=== PATIENT | male | born 1960 | race Caucasian/White ===

== ENCOUNTER 2019-04-04 09:55 | Inpatient (IN) | payer BC ==
[~2019-04-04] VITALS: Ht 167.6 cm; Wt 63.3 kg
[2019-04-04] MEDS ORDERED: CALCIUM CARBONATE 500 MG (TUMS) TAB.CHEW PO PRN (12:45)
[2019-04-04] MEDS ORDERED: FLEET ENEMA ADULT 1 EA BTL PR PRN (12:45)
[2019-04-04] MEDS ORDERED: diphenhydrAMINE 25 MG TAB (BENADRYL) PO PRN (12:45)
[2019-04-04] MEDS ORDERED: guaiFENesin/CODEINE (ROBITUSSIN AC) 10ML UDC PO PRN (12:45)
[2019-04-04] MEDS ORDERED: LOPERAMIDE 2 MG (IMODIUM) TABLET PO PRN (12:45)
[2019-04-04] MEDS ORDERED: ALPRAZolam 0.25 MG (XANAX) TAB PO PRN (12:45)
[2019-04-04] MEDS ORDERED: DOCUSATE SODIUM 100 MG (COLACE) CAP PO PRN (12:45)
[2019-04-04] MEDS ORDERED: LACTULOSE SYRUP 10GM/15ML (ENULOSE) 30ML UDC PO PRN (12:45)
[2019-04-04] MEDS ORDERED: ONDANSETRON 4 MG (ZOFRAN) ORAL DISSOLVE TAB PO PRN (12:45)
[2019-04-04] MEDS ORDERED: MELATONIN 3 MG TABLET PO PRN (12:45)
[2019-04-04] MEDS ORDERED: BISACODYL 10 MG SUPP (DULCOLAX) PR PRN (12:45)
--- NOTE | 2019-04-04 14:25 | NUR ---
Patient received Privacy Act Statement and Data Collection Information Summary at admission.
--- NOTE | 2019-04-04 14:25 | NUR ---
Ric Alcala admitted to room 223-1, with an admitting diagnosis of Hypoxia, on 04/04/19 from [facility] via private vehicle, accompanied by , Sincere and son. RIC ALCALA introduced to surroundings, call light, bed controls, phone, TV, temperature control, lights, meal times, smoking policy, visitor policy, side rail policy, bathrooms and showers. Patient Rights given to patient in the handbook.RIC ALCALA verbalizes understanding that [facility] is not responsible for the loss or damage to any personal effects or valuables that are kept in the patients possession during their hospitalization. The following Patient Care Plans were discussed with the patient and family: Discharge Planning,Fall Risk,and Hypoxia. RIC ALCALA verbalizes understanding of Interdisciplinary Patient Education. Patient and/or family were informed about the Rapid Response Team and its purpose.
[2019-04-04] MEDS ORDERED: FLUT9.9S NS (15:18)
[2019-04-04] MEDS ORDERED: CARV3.12 PO (15:18)
[2019-04-04] MEDS ORDERED: ASPI-999 PO (15:18)
[2019-04-04] MEDS ORDERED: POLY17PO6 PO (15:20)
[2019-04-04] MEDS ORDERED: LISI-556 PO (15:20)
[2019-04-04] MEDS ORDERED: ATOR40TA70 PO (15:20)
[2019-04-04] MEDS ORDERED: CLOP75TA69 PO (15:20)
--- NOTE | 2019-04-04 15:22 | NUR ---
ENTERED THE MED REC USING THE DISCHARGE SUMMARY FROM [facility]. AFTER I INTERVIEW THE PT I WILL UPDATE THE MED REC AND NOTES NEEDED Addendum: 04/05/19 at 1354 by ALEX PATTON [facility] SPOKE WITH THE PT (AND HIS , SHE HAD A MED LIST) WELL GOING THRU THE EXT MED HISTORY TO COMPLETE THE MED REC. CHANGE: PT HAD BEEN TAKING ATORVASTATIN 10 MG BUT [facility] DISCHARGE ORDER IS ATORVASTATIN 40MG I TOOK OFF THE FOLLOWING MEDICATIONS SINCE HE HAS NEVER BEEN ON THEM BEFORE: ASPIRIN 81MG CHEW: 1 QAM CARVEDILOL 3.125M BID W/ MEALS FLONASE MIRALAX: 17 GM QAM CLOPIDOGREL 75: 1 QAM LISINOPRIL 5M QAM THE FOLLOWING MEDS ARE WHAT HE WAS TAKING AND HAVE BEEN UP BACK ON THE MED REC: DICLOFENAC 75MG 1 BID METOPROLOL SUCC 25MG 1 DAILY LOSARTAN 100MG 1 DAILY AMLODIPINE 10MG 1 DAILY OTC MEDS THAT HAVE BEEN ADDED: TYLENOL MTV THE MED REC HAS BEEN RESTORED TO WHAT THE PT WAS TAKING BEFORE HE WAS ADMITTED TO [facility]
--- NOTE | 2019-04-04 15:34 | Physical Therapy Evaluation ---
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 Patient intubated and given CPR on site. Patient found to have a STEMI and hypoxia. Current History transfer to ARU from [facility] due to impaired mobility, weakness, hypoxic brain injury Reviewed History: Yes Social History Home: Single Level Current Living Status: Spouse Entry Into Home: Stairs With Railing PT Steps Into Home: 4 Prior Prior Level of Function SCALE: Activities may be completed with or without assistive devices. 0-Rssgfqgele-dzyksud completes the activity by him/herself with no assistance from a helper. 5-Set-up or Clean-up Assistance-helper sets up or cleans up; patient completes activity. [place] assists only prior to or following the activity. 4-Supervision or Touching Assistance-helper provides verbal cues and/or touching/steadying and/or contact guard assistance as patient completes activity. Assistance may be provided throughout the activity or intermittently. 3-Partial/Moderate Assistance-helper does LESS THAN HALF the effort. [place] lifts, holds or supports trunk or limbs, but provides less than half the effort. 2-Substantial/Maximal Assistance-helper does MORE THAN HALF the effort. [place] lifts or holds trunk or limbs and provides more than half the effort. 9-Hmxiogrlz-dgktcc does ALL the effort. Patient does none of the effort to complete the activity. Or, the assistance of 2 or more helpers is required for the patient to complete the activity. If activity was not attempted, code reason: 7-Patient Refused. 9-Not Applicable-not attempted and the patient did not perform the activity before the current illness, exacerbation or injury. 10-Not Attempted due to Environmental Limitations-(lack of equipment, weather restraints, etc.). 88-Not Attempted due to Medical Conditions or Safety Concerns. Bed Mobility: 6 Transfers (B,C,W/C): 6 Gait: 6 Stairs: 6 Indoor Mobility (Ambulation): Independent Stairs: Independent Prior Devices Use: None PT Evaluation-Current Subjective Patient reports fatigue. Family present. Pain Numeric Pain Scale: 0-No Pain Location: No Pain Reported Objective Patient Orientation: Person, Place, Time, Situation ROM/Strength ROM Lower Extremities bilateral LE WFL Strength Lower Extremities right dorsiflexion/plantarflexion 3/5; knee flexion/extension 3+/5; hip flexion 2/5 left dorsiflexion/plantarflexion3/5; knee flexion/extension 3+/5; hip flexion 2/5 Integumentary/Posture Integumentary refer to nursing notes Bowel Incontinence: No Bladder Incontinence: Castro Cath Posture WFL Neuromuscular (Tone, Coordination, Reflexes) diminished coordination bilateral LE with noted decreased proprioception Sensory Vision: Wears Glasses Hearing: Functional Sensation Right Lower Extremit: Intact Sensation Left Lower Extremity: Intact Transfers Roll Left to Right (QC): 5 Sit to Lying (QC): 3 Lying to Sitting/Side of Bed(Q: 4 Sit to Stand (QC): 2 Chair/Hze-ti-Jgloc Xfer(QC): 2 Toilet Transfer: 2 Car Transfer (QC): 2 patient is very impulsive with all mobility and is unaware of safety concerns. Verbal cue's given for sit to stand and stand to sit to lying as patient impulsively initiated this activity. Gait Does the Patient Walk?: Yes Mode of Locomotion: Both Anticipated Mode of Locomotion: Walk Walk 10 feet (QC): 2 ( x 2 assist) Walk 50 ft with 2 Turns(QC): 2 (x 2 assist) Walk 150 ft (QC): 88 Walking 10ft/uneven surface-QC: 2 (x 2 assist) Distance: 50' x 2/20' x 1 Gait Assistive Device: FWW Comments/Gait Description noted right LE lag and scissor gait sequence due to weakness/fatigue (patient unable to safely ambulate longer distances due to weakness, fatigue, diminished safety awareness) Wheelchair Training Does the Pt Use a Wheelchair?: Yes Wheel 50 ft with 2 turns (QC): 88 Wheel 150 ft (QC): 88 Type of Wheelchair: Manual Stairs #of Steps: 1 1 Step (curb) (QC): 2 (assist x 2 for safety) 4 Steps (QC): 88 12 Steps (QC): 88 Walking Assistive Device: Walker Balance Sitting Static: Fair Sitting Dynamic: Fair Standing Static: Fair Standing Dynamic: Poor Picking up an Object (QC): 3 Treatment Patient and family express desire to return to home. Patient is highly motivated. He denies pain. PT/OT cotreat due to patient profound weakness and fatigue requiring skilled therapist to address patient needs safely. PT address bed mobility, transfers, balance and gait training/stair training while OT address hand placement on FWW with gait training, stair training and ambulating on uneven surface. OT address ADL's and dressing lower body in seated position. Patient requires max assist x 2 for gait training/stair training due to diminished dynamic balance, proprioception and weakness, as well as, severely diminished safety awareness. Patient expresses fatigue and requested returning to bed. Patient positioned in bed with all four rails up and bed alarm activated. Assessment/Needs 59 y.o. male, will benefit from skilled PT to address functional strength and mobility to improve current LOF to safely return to home with spouse at maximum LOF. Patient is limited with impulsive behavior, diminished safety awareness, bilateral LE weakness, impaired dynamic balance and ambulation. 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 Time Frame: May 07, 2019 Roll Left & Right (QC): 6 Sit to Lying (QC): 6 Lying-Sitting on Side/Bed(QC): 6 Sit to Stand (QC): 5 Chair/Blv-yn-Ufhtq Xfer(QC): 5 Toilet Transfer (QC): 5 Car Transfer (QC): 5 Does the Patient Walk: Yes Walk 10 feet (QC): 6 Walk 50ft with 2 Turns (QC): 6 Walk 150 ft (QC): 6 Walking 10ft on Uneven Surface: 6 1 Step (curb) (QC): 6 4 Steps (QC): 6 12 Steps (QC): 6 Picking up an Object (QC): 6 PT Plan Problem List Problem List: Activity Tolerance, Functional Strength, Safety, Balance, Gait, Transfer, Bed Mobility Treatment/Plan Treatment Plan: Continue Plan of Care Treatment Plan: Bed Mobility, Concurrent Therapy, Education, Functional Activity [place], Functional Strength, Group Therapy, Gait, Safety, Therapeutic Exercise, Transfers Treatment Duration: May 07, 2019 Frequency: At least 5 of 7 days/Wk (IRF) Estimated Hrs Per Day: 1.5 hours per day Patient and/or Family Agrees t: Yes Safety Risks/Education Patient Education: Gait Training, Steps, Safety Issues Teaching Recipient: Patient, Family Teaching Methods: Demonstration, Discussion Response to Teaching: Verbalize Understanding, Return Demonstration, Reinforcement Needed Time/GCodes Time In: 1445 Time Out: 1530 Total Billed Treatment Time: 45 Total Billed Treatment 1 visit OT eval: [id number] PT eval: 3258-1141 PT/OT cotreat: [id number]: co treat rendered due to extensive current medical history, weakness/fatigue and need for 2 skilled therapist that of which an aide could not provide 1 visit EVModC 10 min FA x 2 35 min LEAH GAUTAM PT Apr 04, 2019 15:34
--- NOTE | 2019-04-04 15:36 | Occupational Therapy Eval ---
OT Evaluation-General/PLF Medical Diagnosis Admission Date Apr 04, 2019 at 14:35 Medical Diagnosis: AK s/p hypoxic brain injury Onset Date: Mar 18, 2019 Therapy Diagnosis Therapy Diagnosis: Decreased ADL skills Weight Bear Status Weight Bearing Restriction: Weight Bearing/Tolerated Referral Physician: Dr. Sepulveda Referral Reason: Activity Tolerance, Self Care, Evaluation/Treatment, Strengthening/ROM Medical History Additional Medical History Anemia, cardiomyopathy, PNA, leukocytosis Current History Pt. at work, operating [employer]. Pt. had [place]. Sustained hypoxic injury. On ventilator support. Reviewed History: Yes Social History Home: Single Level Current Living Status: Spouse Entry Into Home: Stairs With Railing Steps Into Home: 4 ADL-Prior Level of Function SCALE: Activities may be completed with or without assistive devices. 8-Daqtaoligp-hmihogu completes the activity by him/herself with no assistance from a helper. 5-Set-up or Clean-up Assistance-helper sets up or cleans up; patient completes activity. [place] assists only prior to or following the activity. 4-Supervision or Touching Assistance-helper provides verbal cues and/or touching/steadying and/or contact guard assistance as patient completes activity. Assistance may be provided throughout the activity or intermittently. 3-Partial/Moderate Assistance-helper does LESS THAN HALF the effort. [place] lifts, holds or supports trunk or limbs, but provides less than half the effort. 2-Substantial/Maximal Assistance-helper does MORE THAN HALF the effort. [place] lifts or holds trunk or limbs and provides more than half the effort. 6-Xhotobygy-nncxbj does ALL the effort. Patient does none of the effort to complete the activity. Or, the assistance of 2 or more helpers is required for the patient to complete the activity. If activity was not attempted, code reason: 7-Patient Refused. 9-Not Applicable-not attempted and the patient did not perform the activity before the current illness, exacerbation or injury. 10-Not Attempted due to Environmental Limitations-(lack of equipment, weather restraints, etc.). 88-Not Attempted due to Medical Conditions or Safety Concerns. ADL PLOF Comments Pt. was independent with daily skills. Self Care: Independent Functional Cognition: Independent DME/Equipment Comments Pt. does not use or have any AE. 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 However, pt. reports that he is very tired. Family reports that pt. became nauseated on car ride. Mental Status/Objective Patient Orientation: Person, Place Current Glasses/Contacts: Yes Hand Dominance: Right Upper Extremity ROM WFL Upper Extremity Coordination Impaired Upper Extremity Strength Right- 3+/5 Left- 3/5 Pt. demonstrates difficulty holding items and grasping items. Difficulty with coordination. ADL-Treatment On/Off Footwear (QC): 4 (SBA and increased time to doff/don slipper socks. Pt. had difficulty with this, but was able to complete.) Pt. seen this date for therapy to evaluate current physical status. Pt. requir ed max assist for car transfer to wheelchair. Pt. in clothing and does not have other street clothing here at this time. Family will bring new clothes in. Pt. verbalizes that he is very tired. Continues to request to lay down. States that he has been eating with utensils with no difficulty. Reports that he has not had a BM for a week. Pt. and family educated on therapy goals, and rehab stay. Pt. participated in co-treatment with PT/OT due to need of skilled assistance x 2. Pt. ambulated with walker with assist of two for balance, upright posture, and hand support on walker. Noted difficulty with grasp and proprioception at times. OT focused on hand placement while PT assessed scissoring with feet and gait. Mod x 2 to ambulate with walker and max cues. Please see PT noted for distance ambulated. Pt. requires several rest breaks. After evaluation, pt. ambulated to room. Transferred to bed with mod assist for LE. Pt. educated on safety and not getting out of bed on his own. Pt. and family verbalizes understanding that pt. is to use call light for assistance. Pt. issued therapy hand sponge for strengthening and built up foam utensil handles if needed for eating. Nursing in room when therapy left. All needs met. Education OT Patient Education: Correct positioning, Modified ADL techniques, Progress toward Goal/Update tx plan, Purpose of tx/functional activities, Reviewed precautions, Rehab process, Transfer techniques Teaching Recipient: Patient, Family Teaching Methods: Demonstration Response to Teaching: Verbalize Understanding, Return Demonstration OT Short Term Goals Short Term Goals Time Frame: Apr 11, 2019 Eatin Oral hygiene: 4 Toileting hygiene: 3 Shower/bathe self: 3 Upper body dressin Lower body dressin Putting on/taking off footwear: 4 OT Shelter Goals Shelter Goals Time Frame: Apr 25, 2019 Eating (QC): 6 Oral Hygiene (QC): 5 Toileting Hygiene (QC): 6 Shower/Bathe Self (QC): 4 Upper Body Dressing (QC): 4 Lower Body Dressing (QC): 4 On/Off Footwear (QC): 4 Additional Goals: 1-Demonstrate ADL Tasks, 2-Verbalize Understanding, 3- ImproveStrength/[place] 1=Demonstrate adherence to instructed precautions during ADL tasks. 2=Patient will verbalize/demonstrate understanding of assistive devices/modifications for ADL. 3=Patient will improve strength/tolerance for activity to enable patient to perform ADL's. OT Education/Plan Problem List/Assessment Assessment: Decreased Activ Tolerance, Decreased Safety Aware, Decreased UE Strength, Dependent Transfers, Impaired Cognition, Impaired Coordination, Impaired Funct Balance, Impaired I ADL's, Impaired Self-Care Skills Discharge Recommendations Plan/Recommendations: Continue POC Therapy Discharge Recommendati: Home & Family, Post Acute OT Comment Adaptive equipment needs to be determined. Treatment Plan/Plan of Care Treatment,Training & Education: Yes Patient would benefit from OT for education, treatment and training to promote independence in ADL's, mobility, safety and/or upper extremity function for ADL' s. Plan of Care: ADL Retraining, Caregiver Training, Functional Mobility, Group Exercise/Act as Ind, UE Funct Exercise/Act Treatment Duration: Apr 25, 2019 Frequency: At least 5 of 7 days/Wk (IRF) Estimated Hrs Per Day: 1.5 hours per day Agreement: Yes Rehab Potential: Good Time/GCodes Start Time: 14:35 Stop Time: 15:30 Total Time Billed (hr/min): 45 Billed Treatment Time 0207-3377 OT eval, 1, EVH x 10minutes 2081-4015 PT eval, no charge [id number] FA x 35minutes VENANCIO KUMAR OT Apr 04, 2019 15:36
[2019-04-04 16:00] VITALS: BP 102/67
--- NOTE | 2019-04-04 18:29 | PM&R Post Admission Assessment ---
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 Patient currently has severe constipation x 1 week and requiring payton catheter maintenance due to failure of voiding trial yesterday. 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 His is very supportive and is at the bedside. Past Asjtslr-Eqqway-Ymgnti Hx Past Med/Social Hx: Reviewed Nursing Past Med/Soc Hx, Reviewed and Corrections made Patient Social History Marrital Status: Employed/Student: unemployed Alcohol Use: Denies Use Recreational Drug Use: No Smoking Status: Former Smoker Type Used: Smokeless Tobacco Physical Abuse Screen: No Sexual Abuse: No Recent Foreign Travel: No Contact w/other who traveled: No Recent Hopitalizations: Yes Recent Infectious Disease Expo: No Immunizations Up To Date Pediatric: No Seasonal Allergies Seasonal Allergies: Yes (Takes FLONASE and Singulair) Past Medical History Surgeries: Cardiac Currently Using CPAP: No Currently Using BIPAP: No Cardiac: Coronary Artery Disease, High Cholesterol, Hypertension anoxic brain injury Sexually Transmitted Disease: No HIV/AIDS: No Genitourinary: Benign Prostatic Hyperpl Gastrointestinal: Gastroesophageal Reflux Hearing Impairment: Hard of Hearing History of Blood Disorders: No Adverse Reaction to Blood Vyas: No Family History Arthritis 19 FATHER G8 SISTER Cardiovascular disease 19 FATHER Completed stroke 19 FATHER Deafness or hearing loss Diabetes mellitus G8 SISTER Hypercholesterolemia 19 FATHER Hypertension 19 FATHER Myocardial infarction 19 FATHER Visual disorder 19 FATHER 19 MOTHER G8 SISTER Prior Level of Function Bed Mobility: 6 Transfers: 6 Gait: 6 Stairs: 6 Indoor Mobility (Ambulation): Independent Stairs: Independent Prior Devices Use: None Self Care: Independent Functional Cognition: Independent 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 Drive Self: Yes Current Level of Fuctioning Roll Left to Right: 5 Sit to Lyin Lying to Sitting/Side of Bed: 4 Sit to Stand: 2 Chair/Imj-yj-Rwszs Xfer: 2 Car Transfer: 2 Does the Patient Walk: Yes Mode of Locomotion: Both Anticipated Mode of Locomotion: Walk Walk 10 feet: 2 ( x 2 assist) Walk 50 ft with 2 Turns: 2 (x 2 assist) Walk 150 ft: 88 Walking 10ft on uneven surface: 2 (x 2 assist) Gait Assistive Device: FWW Does the Pt Use a Wheelchair: Yes Wheel 50 ft with 2 turns: 88 Wheel 150 ft: 88 Type of Wheelchair: Manual #of Steps: 1 1 Step (curb): 2 (assist x 2 for safety) 4 Steps: 88 Walking Assistive Device: Walker 12 Steps: 88 Picking up an Object: 3 On/Off Footwear: 4 (SBA and increased time to doff/don slipper socks. Pt. had difficulty with this, but was able to complete.) PM&R Allergy/Meds/Data Review Allergies Coded Allergies: No Allergy Information Available (Unverified , 04/04/19) Home Medications Scheduled Aspirin (Aspirin), 81 MG PO DAILY, (Reported) Atorvastatin Calcium (Atorvastatin Calcium), 40 MG PO HS, (Reported) Carvedilol (Coreg), 3.125 MG PO BID WITH MEALS, (Reported) Clopidogrel Bisulfate (Plavix), 75 MG PO DAILY, (Reported) Fluticasone Propionate (Flonase Allergy Relief), 1 SPRAY NS DAILY, (Reported) Lisinopril (Lisinopril), 5 MG PO DAILY, (Reported) Polyethylene Glycol 3350 (Miralax), 17 GM PO DAILY, (Reported) Current Medications Current Medications Reviewed Review of Systems Constitutional: see HPI, weakness EENTM: no symptoms reported Respiratory: no symptoms reported Cardiovascular: no symptoms reported Gastrointestinal: constipation Genitourinary: other (retention) Musculoskeletal: back pain Skin: no symptoms reported Psychiatric/Neurological: Anxiety, Depressed All Other Systems Reviewed Negative Unless Noted: Yes Physical Exam Physical Exam Vital Signs Vital Signs - First Documented 04/04/19 16:00 Temp 36.4 Pulse 69 Resp 14 B/P (MAP) 102/67 (79) Pulse Ox 95 O2 Delivery Room Air Capillary Refill : Height, Weight, BMI Height: '" Weight: lbs. oz. kg; BMI Method: General Appearance: No Apparent Distress, WD/WN, Chronically ill, Thin Eyes: Bilateral Eye Normal Inspection, Bilateral Eye PERRL HEENT: PERRL/EOMI, Normal ENT Inspection, Pharynx Normal Neck: Full Range of Motion, Normal Inspection, Non Tender, Supple, Carotid Bruit Respiratory: Chest Non Tender, Lungs Clear, Normal Breath Sounds, No Accessory Muscle Use, No Respiratory Distress Cardiovascular: Regular Rate, Rhythm, No Edema, No Gallop, No JVD, No Murmur, Normal Peripheral Pulses Gastrointestinal: Normal Bowel Sounds, No Organomegaly, No Pulsatile Mass, Non Tender, Soft Back: Normal Inspection, No CVA Tenderness, No Vertebral Tenderness Extremity: Normal Capillary Refill, Normal Inspection, Normal Range of Motion, Non Tender, No Calf Tenderness, No Pedal Edema Neurologic/Psychiatric: Alert, Oriented x3, No Motor/Sensory Deficits, Normal Mood/Affect, Disoriented (subtle slow responses and recall), Motor Weakness (generalized all extremities, impulsive) Skin: Normal Color, Warm/Dry Lymphatic: No Adenopathy PM&R Medical Assessment & Plan REHAB/MEDICAL ASSESSMENT AND PLAN: REHAB IMPAIRMENT GROUP: Anoxic brain injury ETIOLOGIC DIAGNOSIS: Anoxic brain injury The comorbidities that impact the patients function and/or functional outcome by: Cognitive deficit, severe cardiac conditions, frail status REHAB PLAN: The patient is being admitted to our comprehensive inpatient rehabilitation facility and can tolerate the intensity of service consisting of at least: 180 minutes of therapy a day, 5 out of 7 days a week Rehab treatment will consist of: PT OT ST will all aggressively treat patient in order to regain PLOF in order to return home The patient/family has a good understanding of our discharge process and will benefit from an interdisciplinary inpatient rehabilitation program. The patient has potential to make improvement and is in need of at least two of the following multidisciplinary therapies including but not limited to physical, occupational, speech, and prosthetics and orthotics. Additionally the patient will need services from respiratory, nutritional services, wound care, psychology, etc. (Customize this to each patient). Given the patients complex condition and risk of further medical complications, rehabilitation services cannot be safely or effectively provided at a lower level of care such as a nursing home facility. BARRIERS TO DISCHARGE: Frail status with cognitive deficit ESTIMATED LOS: 10 days DISPOSITION: Home RELEVANT CHANGES SINCE PREADMISSION SCREENING: I have compared the patients medical and functional status at the time of the preadmission screening and there are: no changes PROGNOSIS: Good REHABILITATION GOALS: 1. PT OT ST will all aggressively treat patient in order to regain PLOF in order to return home All the above goals were reviewed with the patient and he/she is in agreement. By signing this document, I acknowledge that I have personally performed a full physical examination on this patient within 24 hours of admission to this inpatient rehabilitation facility and have determined the patient to be able to tolerate the above course of treatment at an intensive level for a reasonable period of time. I will be completing a detailed individualized Plan of Care for this patient by day #4 of the patients stay based upon the Preadmission Screen, the Post-Admission Evaluation, and the therapy evaluations. Admission Dx/Comorbidities: (1) Anoxic brain injury ICD Codes: G93.1 - Anoxic brain damage, not elsewhere classified (2) CAD (coronary artery disease) ICD Codes: I25.10 - Atherosclerotic heart disease of [place] coronary artery without angina pectoris (3) Malnutrition ICD Codes: E46 - Unspecified protein-calorie malnutrition (4) Urinary retention ICD Codes: R33.9 - Retention of urine, unspecified (5) Constipation ICD Codes: K59.00 - Constipation, unspecified (6) Payton catheter in place ICD Codes: Z96.0 - Presence of urogenital implants (7) Hypertension ICD Codes: I10 - Essential (primary) hypertension RENEE JARVIS DO Apr 04, 2019 18:29
[2019-04-04 18:58] VITALS: BP 102/67
[2019-04-04] MEDS: LACTULOSE SYRUP 10GM/15ML (ENULOSE) 30ML UDC PO SCH ×2 (19:46→19:52)
[2019-04-04 20:13] VITALS: BP 102/67
[2019-04-04] MEDS ORDERED: FLU QUADRIvalent (5+ YOA) 2019-2020 (AFLURIA) 0.5 ML IM ONE (20:30)
[2019-04-04] MEDS: SENNA W/DOCUSATE (SENOKOT S) TABLET PO SCH (20:31)
[2019-04-04] MEDS: DOCUSATE SODIUM 100 MG (COLACE) CAP PO SCH (20:31)
[2019-04-04] MEDS: polyethylene glycoL POWDER 17 GM (MIRALAX) PACK PO SCH (20:32)
[2019-04-04] MEDS ORDERED: polyethylene glycoL POWDER 17 GM (MIRALAX) PACK PO SCH (21:00)
--- NOTE | 2019-04-04 21:00 | NUR ---
Lovenox held because patient already had a dose today at [facility] before transferring here.
[2019-04-04] MEDS: ENOXAPARIN 40 MG/0.4 ML (LOVENOX) SYR SC SCH (22:21)
[2019-04-05 05:13] VITALS: BP 98/68
[2019-04-05 06:52] LABS: BASOPHILS % (AUTO) 0 % (0-10); EOSINOPHILS # (AUTO) 0.3 10^3/uL (0.0-0.3); EOSINOPHILS % (AUTO) 4 % (0-10); HEMATOCRIT 37 % (40-54); HEMOGLOBIN 12.2 G/DL (13.3-17.7); LYMPHOCYTES # (AUTO) 1.2 X 10^3 (1.0-4.0); LYMPHOCYTES % (AUTO) 15 % (12-44); MEAN CORPUSCULAR HEMOGLOBIN 29 PG (25-34); MEAN CORPUSCULAR HGB CONC 33 G/DL (32-36); MEAN CORPUSCULAR VOLUME 86 FL (80-99); MEAN PLATELET VOLUME 11.1 FL (7.4-10.4); MONOCYTES % (AUTO) 12 % (0-12); NEUTROPHILS # (AUTO) 5.3 X 10^3 (1.8-7.8); NEUTROPHILS % (AUTO) 69 % (42-75); PLATELET COUNT 645 10^3/uL (130-400); RED CELL DISTRIBUTION WIDTH 13.9 % (10.0-14.5); WHITE BLOOD COUNT 7.8 10^3/uL (4.3-11.0)
[2019-04-05] MEDS: CARVEDILOL 3.125 MG (COREG) TABLET PO SCH ×2 (07:00→17:33)
[2019-04-05 07:13] LABS: ALANINE AMINOTRANSFERASE 85 U/L (0-55); ALBUMIN 3.3 GM/DL (3.2-4.5); ALKALINE PHOSPHATASE 160 U/L (40-136); BILIRUBIN,TOTAL 0.6 MG/DL (0.1-1.0); BUN/CREATININE RATIO 32; CALCIUM 9.2 MG/DL (8.5-10.1); CARBON DIOXIDE 20 MMOL/L (21-32); CHLORIDE 106 MMOL/L (98-107); CREATININE SERUM 0.77 MG/DL (0.60-1.30); GFR ESTIMATED > 60; GLUCOSE 94 MG/DL (70-105); POTASSIUM 4.1 MMOL/L (3.6-5.0); SODIUM 134 MMOL/L (135-145); TOTAL PROTEIN 6.4 GM/DL (6.4-8.2)
[2019-04-05] MEDS: CLOPIDOGREL 75 MG (PLAVIX) TABLET PO SCH (08:50)
[2019-04-05] MEDS: DOCUSATE SODIUM 100 MG (COLACE) CAP PO SCH ×2 (08:50→20:30)
[2019-04-05] MEDS: SENNA W/DOCUSATE (SENOKOT S) TABLET PO SCH ×2 (08:50→20:30)
[2019-04-05] MEDS: ASPIRIN 81 MG CHEW (CHILDREN'S ASA) PO SCH (08:51)
[2019-04-05] MEDS: LACTULOSE SYRUP 10GM/15ML (ENULOSE) 30ML UDC PO SCH ×2 (08:51→20:30)
[2019-04-05] MEDS: lisINopril 5 MG (PRINIVIL) TABLET PO SCH (08:53)
[2019-04-05] MEDS: BISACODYL 10 MG SUPP (DULCOLAX) PR SCH ×2 (08:55→17:36)
[2019-04-05] MEDS: FLUTICASONE NASAL SPRAY (FLONASE) 16 GM BTL NS SCH (08:55)
[2019-04-05 08:56] VITALS: BP 100/68
--- NOTE | 2019-04-05 08:58 | Physical Therapy Daily Note ---
PT Daily Note-Current Subjective Patient in bed pre tx, agrees to PT, has no complaints of pain. Patient needs to get pants on, needs max assist. Appearance Patient in bed post tx with nurse call, phone, tray, all needs met. Bed alarm on. Mental Status Patient Orientation: Person, Place, Situation Attachments: [place] Catheter Transfers SCALE: Activities may be completed with or without assistive devices. 3-Vijlahgqux-ythvcuh completes the activity by him/herself with no assistance from a helper. 5-Set-up or Clean-up Assistance-helper sets up or cleans up; patient completes activity. [place] assists only prior to or following the activity. 4-Supervision or Touching Assistance-helper provides verbal cues and/or touching/steadying and/or contact guard assistance as patient completes activity. Assistance may be provided throughout the activity or intermittently. 3-Partial/Moderate Assistance-helper does LESS THAN HALF the effort. [place] lifts, holds or supports trunk or limbs, but provides less than half the effort. 2-Substantial/Maximal Assistance-helper does MORE THAN HALF the effort. [place] lifts or holds trunk or limbs and provides more than half the effort. 8-Ayclmabaw-yogckr does ALL the effort. Patient does none of the effort to complete the activity. Or, the assistance of 2 or more helpers is required for the patient to complete the activity. If activity was not attempted, code reason: 7-Patient Refused. 9-Not Applicable-not attempted and the patient did not perform the activity before the current illness, exacerbation or injury. 10-Not Attempted due to Environmental Limitations-(lack of equipment, weather restraints, etc.). 88-Not Attempted due to Medical Conditions or Safety Concerns. Roll Left & Right (QC): 6 Sit to Lying (QC): 6 Lying to Sitting/Side of Bed(Q: 6 Sit to Stand (QC): 3 Chair/Pio-jl-Fqmmw Xfer(QC): 3 Min assist for sit to stand and transfers due to poor balance Weight Bearing Right Lower Extremity: Right Full Weight Bearing Left Lower Extremity: Left Full Weight Bearing Gait Training Distance: 20'x6 Walk 10 feet (QC): 3 Gait Persons Needed: 1 Gait Assistive Device: FWW Min assist, uncoordinated stepping bilaterally Wheelchair Training Does the Pt Use a Wheelchair?: Yes Wheel 50 ft with 2 turns (QC): 3 Type of Wheelchair: Manual 120' min assist, cues for direction Exercises Standing: Heel/toe raises, Mini squats, Step-ups (x5 BLE) Standing Reps: 10 LAQ alternating for 3 min Treatments dressing, WC mobility, transfers, bed mobility, ambulation, LE strengthening. 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 Goals Mcc Goals PT Mcc Goals Time Frame: May 07, 2019 Roll Left & Right (QC): 6 Sit to Lying (QC): 6 Lying-Sitting on Side/Bed(QC): 6 Sit to Stand (QC): 5 Chair/Ijk-to-Qkldg Xfer(QC): 5 Toilet Transfer (QC): 5 Car Transfer (QC): 5 Does the Patient Walk: Yes Walk 10 feet (QC): 6 Walk 50ft with 2 Turns (QC): 6 Walk 150 ft (QC): 6 Walking 10ft on Uneven Surface: 6 1 Step (curb) (QC): 6 4 Steps (QC): 6 12 Steps (QC): 6 Picking up an Object (QC): 6 PT Plan Problem List Problem List: Activity Tolerance, Functional Strength, Safety, Balance, Gait, T ransfer, Bed Mobility Treatment/Plan Treatment Plan: Continue Plan of Care Treatment Plan: Bed Mobility, Concurrent Therapy, Education, Functional Activity [place], Functional Strength, Group Therapy, Gait, Safety, Therapeutic Exercise, Transfers Treatment Duration: May 07, 2019 Frequency: At least 5 of 7 days/Wk (IRF) Estimated Hrs Per Day: 1.5 hours per day Patient and/or Family Agrees t: Yes Safety Risks/Education Patient Education: Gait Training, Transfer Techniques, Correct Positioning, W/C Management, Safety Issues Teaching Recipient: Patient Teaching Methods: Demonstration, Discussion Response to Teaching: Reinforcement Needed Time/GCodes Time In: 0800 Time Out: 0900 Total Billed Treatment Time: 60 Total Billed Treatment 1 visit GT 30' FA 10' EX 20' STEW CRAIG PT Apr 05, 2019 08:58
[2019-04-05] MEDS ORDERED: NON-FORMULARY MEDICATION 1 EA EA (Fluticasone Propionate (Flonase Allergy Relief) 1 SPRAY) NS SCH (09:00)
--- NOTE | 2019-04-05 09:03 | PM&R Progress Note ---
Subjective HPI/CC On Admission Date Seen by Provider: Apr 05, 2019 Time Seen by Provider: 09:15 Subjective/Events-last exam Pt is doing very well. BM was last week so will initiate a suppository this afternoon after laxatives have been given. BP remains 100/68, Dr. Cruz has been consulted. Cognitive deficit noted Conferred with RN. Reviewed therapy notes. Checked meds and labs. Review of Systems General: Fatigue Pulmonary: Dyspnea Gastrointestinal: Constipation Neurological: Confusion Objective Exam Vital Signs Vital Signs Date Time Temp Pulse Resp B/P (MAP) Pulse Ox O2 Delivery O2 Flow Rate FiO2 04/05/19 18:21 36.2 68 16 108/72 (84) 98 Room Air Capillary Refill : Less Than 3 SecondsLess Than 3 Seconds General Appearance: No Apparent Distress, WD/WN, Chronically ill, Thin HEENT: PERRL/EOMI, Normal ENT Inspection, Pharynx Normal Neck: Full Range of Motion, Normal Inspection, Non Tender, Supple, Carotid Bruit Respiratory: Chest Non Tender, Lungs Clear, Normal Breath Sounds, No Accessory Muscle Use, No Respiratory Distress Cardiovascular: Regular Rate, Rhythm, No Edema, No Gallop, No JVD, No Murmur, Normal Peripheral Pulses Gastrointestinal: Normal Bowel Sounds, No Organomegaly, No Pulsatile Mass, Non Tender, Soft Back: Normal Inspection, No CVA Tenderness, No Vertebral Tenderness Extremity: Normal Capillary Refill, Normal Inspection, Normal Range of Motion, Non Tender, No Calf Tenderness, No Pedal Edema Neurologic/Psychiatric: Alert, Oriented x3, No Motor/Sensory Deficits, Normal Mood/Affect, Disoriented (subtle slow responses and recall), Motor Weakness (generalized all extremities, impulsive) Skin: Normal Color, Warm/Dry Lymphatic: No Adenopathy Results/Procedures Lab Laboratory Tests 04/05/19 05:25 Patient resulted labs reviewed. FIM Transfers Therapy Code Descriptions/Definitions Functional [place] Measure: 0=Not Assessed/NA 4=Minimal Assistance 1=Total Assistance 5=Supervision or Setup 2=Maximal Assistance 6=Modified [place] 3=Moderate Assistance 7=Complete IndependenceSCALE: Activities may be completed with or without assistive devices. 2-Fjrbpvrifk-huyfjyv completes the activity by him/herself with no assistance from a helper. 5-Set-up or Clean-up Assistance-helper sets up or cleans up; patient completes activity. [place] assists only prior to or following the activity. 4-Supervision or Touching Assistance-helper provides verbal cues and/or touching/steadying and/or contact guard assistance as patient completes activity. Assistance may be provided throughout the activity or intermittently. 3-Partial/Moderate Assistance-helper does LESS THAN HALF the effort. [place] lifts, holds or supports trunk or limbs, but provides less than half the effort. 2-Substantial/Maximal Assistance-helper does MORE THAN HALF the effort. [place] lifts or holds trunk or limbs and provides more than half the effort. 2-Kcdzkghfk-bnfjhi does ALL the effort. Patient does none of the effort to complete the activity. Or, the assistance of 2 or more helpers is required for the patient to complete the activity. If activity was not attempted, code reason: 7-Patient Refused. 9-Not Applicable-not attempted and the patient did not perform the activity before the current illness, exacerbation or injury. 10-Not Attempted due to Environmental Limitations-(lack of equipment, weather re straints, etc.). 88-Not Attempted due to Medical Conditions or Safety Concerns. Roll Left to Right (QC): 6 Sit to Lying (QC): 6 Sit to Stand (QC): 3 Chair/Hvk-wv-Uxphs Xfer(QC): 3 Car Transfer (QC): 2 Gait Training Does the Patient Walk?: Yes Distance: 20'x6 Walk 10 feet (QC): 3 Walk 50 ft with 2 Turns(QC): 2 (x 2 assist) Walk 150 ft (QC): 88 Walking 10ft/uneven surface-QC: 2 (x 2 assist) Gait Persons Needed: 1 Gait Assistive Device: FWW Wheelchair Training Does the Pt Use a Wheelchair?: Yes Wheel 50 ft with 2 turns (QC): 3 Wheel 150 ft (QC): 88 Type of Wheelchair: Manual Stair Training #of Steps: 1 1 Step (curb) (QC): 2 (assist x 2 for safety) 4 Steps (QC): 88 12 Steps (QC): 88 Balance Picking up an Object (QC): 3 ADL-Treatment On/Off Footwear (QC): 4 (SBA and increased time to doff/don slipper socks. Pt. had difficulty with this, but was able to complete.) Assessment/Plan Assessment and Plan Assess & Plan/Chief Complaint Assessment: Anoxic brain injury Cognitive deficit CAD Constipation severe Urinary retention requiring payton cath Plan: IRF protocol BM regimen Cardiology appreciated Dr Gentile appreciated (1) Anoxic brain injury (2) CAD (coronary artery disease) (3) Malnutrition (4) Urinary retention (5) Constipation (6) Payton catheter in place (7) Hypertension RENEE JARVIS DO Apr 05, 2019 09:03
--- NOTE | 2019-04-05 09:48 | Consultation-Cardiology ---
HPI-Cardiology Cardiology Consultation Date of Consultation 04/05/19 Date of Admission Time Seen by Provider: 09:15 Indication: CAD HPI Patient is a 55-year-old gentleman with history of hypertension hyperlipidemia, tobaccoism with chewing tobacco. 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 Patient required CPR, found to have STEMI and was taken for emergent cardiac catheterization where he underwent stent placement to the circumflex and LAD. Patient was hospitalized at [facility], had bilateral pneumothorax status post chest tubes which are now discontinued, pneumonia, anemia. Was transferred to inpatient rehabilitation facility. [facility]. Upon interviewing the patient he is denying any chest pain or shortness of breath. Noted to be borderline hypotensive, however denying any dizziness or lightheadedness. No other complaints at this time. 55 years old gentleman with history of coronary artery disease, hypertension hyperlipidemia, had sudden with acute ST elevation of cardiac infarction, transferred to [facility], had stent placement to the LAD and circumflex artery, had bilateral chest tube. Currently in physical therapy recovering slowly, feeling better. Home Medications & Allergies Allergies: Coded Allergies: No Allergy Information Available (Unverified , 04/04/19) Medication list reviewed BGX-Ezqept-Cpvufa Hx Patient Social History Marital Status: Employed/Student: employed Alcohol Use: Denies Use Recreational Drug Use: No Smoking Status: Former Smoker Type Used: Smokeless Tobacco Recent Foreign Travel: No Recent Infectious Disease Expo: No Recent Hopitalizations: Yes Physical Abuse Screen: No Sexual Abuse: No Past Medical History HTN, HLP Family Medical History Significant Family History: CAD Over 55 Years Old Family History: Arthritis 19 FATHER G8 SISTER Cardiovascular disease 19 FATHER Completed stroke 19 FATHER Deafness or hearing loss Diabetes mellitus G8 SISTER Hypercholesterolemia 19 FATHER Hypertension 19 FATHER Myocardial infarction 19 FATHER Visual disorder 19 FATHER 19 MOTHER G8 SISTER Review of Systems-General Review of Systems Constitutional: see HPI; No chills, No diaphoresis, No dizziness; weakness EENTM: see HPI, no symptoms reported; No blurred vision, No double vision Respiratory: no symptoms reported, see HPI; No cough, No dyspnea on exertion Cardiovascular: no symptoms reported; No chest pain, No edema; Hx of Intervention; No palpitations; vascular heart diseas Gastrointestinal: constipation Genitourinary: other (retention) Musculoskeletal: back pain Skin: no symptoms reported Psychiatric/Neurological: Anxiety, Depressed All Other Systems Reviewed Negative Unless Noted: Yes Reviewed Test Results Reviewed Test Results Lab Laboratory Tests 04/05/19 05:25: White Blood Count 7.8, Red Blood Count 4.26L, Hemoglobin 12.2L, Hematocrit 37L, Mean Corpuscular Volume 86, Mean Corpuscular Hemoglobin 29, Mean Corpuscular Hemoglobin Concent 33, Red Cell Distribution Width 13.9, Platelet Count 645H, Mean Platelet Volume 11.1H, Neutrophils (%) (Auto) 69, Lymphocytes (%) (Auto) 15, Monocytes (%) (Auto) 12, Eosinophils (%) (Auto) 4, Basophils (%) (Auto) 0, Neutrophils # (Auto) 5.3, Lymphocytes # (Auto) 1.2, Monocytes # (Auto) 1.0, Eosinophils # (Auto) 0.3, Basophils # (Auto) 0.0, Sodium Level 134L, Potassium Level 4.1, Chloride Level 106, Carbon Dioxide Level 20L, Anion Gap 8, Blood Urea Nitrogen 25H, Creatinine 0.77, Estimat Glomerular Filtration Rate > 60, BUN/Creatinine Ratio 32, Glucose Level 94, Calcium Level 9.2, Corrected Calcium 9.8, Total Bilirubin 0.6, Aspartate Amino Transf (AST/SGOT) 38H, Alanine Aminotransferase (ALT/SGPT) 85H, Alkaline Phosphatase 160H, Total Protein 6.4, Albumin 3.3 Physical Exam Physical Exam Vital Signs Vital Signs - First Documented 04/04/19 16:00 Temp 36.4 Pulse 69 Resp 14 B/P (MAP) 102/67 (79) Pulse Ox 95 O2 Delivery Room Air Capillary Refill : Less Than 3 SecondsLess Than 3 Seconds Height, Weight, BMI Height: '" Weight: lbs. oz. kg; 22.53 BMI Method: General Appearance: No Apparent Distress, WD/WN, Chronically ill, Thin Eyes: Bilateral Eye Normal Inspection, Bilateral Eye PERRL HEENT: PERRL/EOMI, Normal ENT Inspection, Pharynx Normal Neck: Full Range of Motion, Normal Inspection, Non Tender, Supple, Carotid Bruit Respiratory: Chest Non Tender, Lungs Clear, Normal Breath Sounds, No Accessory Muscle Use, No Respiratory Distress Cardiovascular: Regular Rate, Rhythm, No Edema, No Gallop, No JVD, No Murmur, Normal Peripheral Pulses Gastrointestinal: Normal Bowel Sounds, No Organomegaly, No Pulsatile Mass, Non Tender, Soft Back: Normal Inspection, No CVA Tenderness, No Vertebral Tenderness Extremity: Normal Capillary Refill, Normal Inspection, Normal Range of Motion, Non Tender, No Calf Tenderness, No Pedal Edema Neurologic/Psychiatric: Alert, Oriented x3, No Motor/Sensory Deficits, Normal Mood/Affect, Motor Weakness (generalized all extremities) Skin: Normal Color, Warm/Dry Lymphatic: No Adenopathy A/P-Cardiology Admission Diagnosis s/p cardiac arrest STEMI CAD HTN HLP Assessment/Plan CAD, s/p cardiac arrest earlier this month with STEMI, underwent emergent cardiac catheterization done at [place] demonstrating 100% occlusion of cx, critical stenosis of LAD. Underwent Synergy [id number] stent to te mid circumflex and synergy 3.0x16mm stent to the proximal circumflex. Synergy 2.5 x20mm to mid LAD and Syncergy 2.75x 24mm to prox LAD. Currently on Plavix and ASA Cardiomyopathy, acute left ventricular systolic dysfunction secondary to acute myocardial infarction, planning to repeat 2-D echocardiogram Bilateral pneumothorax, s/p CT placement, resolved, chest tubes discontinued Recent pneumonia- improving, continue to monitor. Hypertension, currently borderline hypotensive. Maintained on Coreg 3.125mg BID and Lisinopril 5mg daily. Continue to monitor. Hyperlipidemia, maintained on stating, continue to monitor. Hx of RBBB. Constipation, management per PCP Tobaccoism, patient chewed tobacco. Educated on avoiding tobacco product Arthritis, management per PCP Nonobstructive carotid artery stenosis-last carotid duplex done November 2015. Continue to monitor. Strong family history of heart disease Thank you for allowing us to participate in the management of Mr. Hernandez. This is Camden Hess PA-C as a scribe for Dr. Cruz. Patient was seen and evaluated with Camden, examination performed, management plan was discussed, agree with the current scribed note, I made few changes to the note using Italic font Patient was seen and evaluated, feeling better, undergoing physical therapy On examination lungs were clear to auscultation, heart is regular Continue to monitor closely, monitor EKG and blood pressure, continue to monitor Clinical Quality Measures DVT/VTE Risk/Contraindication: Risk Factor Score Per Nursin RFS Level Per Nursing on Admit: 4+=Very High CAMDEN QUINN Apr 05, 2019 9:48 am KIRIT CRUZ MD Apr 05, 2019 11:33 am
--- NOTE | 2019-04-05 10:29 | NUR ---
NO BM SINCE 03/28/2019. COLACE, SENOKOT, AND LACTULOSE GIVEN. PATIENT STATES THAT HE WILL TAKE A SUPPOSITORY IF NO RESULTS BY THIS AFTERNOON.
--- NOTE | 2019-04-05 11:23 | CONSULTATION REPORT ---
DATE OF SERVICE: 04/05/2019 ATTENDING PHYSICIAN: Dr. Sepulveda. SUMMARY: A 59-year-old white man admitted to rehabilitation after a cardiac arrest and resuscitation. He came in from [facility] with a catheter, apparently failed trial of voiding, has a catheter in, draining clear urine. The patient denies any problems voiding at home. He is on no medication for bladder or prostate. No previous surgery on the tract. PHYSICAL EXAMINATION: Deferred at this point. IMPRESSION: Urinary retention. PLAN: We will start him on Flomax 0.4 mg daily and manage accordingly. In 3 days on Flomax, we will give him a trial of voiding and follow up with bladder scan and manage according to the residuals. The plan was fully explained to the patient and his . Job ID: [id number] DocumentID: [id number] Dictated Date: 04/05/2019 10:49:12 Vallez Filter Operator Date: 04/05/2019 11:22:09 Dictated By: EDMUNDO DICK MD
--- NOTE | 2019-04-05 11:29 | Occupational Ther Daily Note ---
OT Current Status-Daily Note Subjective Pt resting in bed, agrees to therapy. Denies pain. Mental Status/Objective Attachments: Castro Catheter ADL-Treatment Pt supine to sit with min assist. Pt transferred to w/c with min assist for balance and safety. Pt is impulsive and requires skilled cues for safety. To restroom via w/c. Pt transferred w/c <-> shower bench with min assist using grab bars, skilled cues for safety. Pt required mod assist to doff shirt and max assist to doff pants. Seated bathing completed with increased time. Pt able to partially wash chest, abdomen, and UE, but frequently drops washcloth, so requires assist for thorough hygiene. Max assist to wash lower body secondary to decreased balance and coordination. Pt requires assist to maintain safe sitting position during shower. Don pullover shirt with assist to thread left UE into sleeve and pull shirt down in back. Assist to thread LE into pants. Pt stood with mod assist for balance. Pt attempts to pull pants up over hips, but requires assist to complete task. Min assist to don socks. Pt completed oral care seated at sink with assist to place toothpaste on toothbrush. Pt combed hair with assist secondary to tangles. Pt returned to bed with min assist for LE. Pt resting in bed with needs met and bed alarm on after session. Therapy Code Descriptions/Definitions Functional [place] Measure: 0=Not Assessed/NA 4=Minimal Assistance 1=Total Assistance 5=Supervision or Setup 2=Maximal Assistance 6=Modified [place] 3=Moderate Assistance 7=Complete IndependenceSCALE: Activities may be completed with or without assistive devices. 8-Zgvjdhltif-nihghmt completes the activity by him/herself with no assistance from a helper. 5-Set-up or Clean-up Assistance-helper sets up or cleans up; patient completes activity. [place] assists only prior to or following the activity. 4-Supervision or Touching Assistance-helper provides verbal cues and/or touching/steadying and/or contact guard assistance as patient completes activity. Assistance may be provided throughout the activity or intermittently. 3-Partial/Moderate Assistance-helper does LESS THAN HALF the effort. [place] lifts, holds or supports trunk or limbs, but provides less than half the effort. 2-Substantial/Maximal Assistance-helper does MORE THAN HALF the effort. [place] lifts or holds trunk or limbs and provides more than half the effort. 9-Cpckrgqqq-hvcsce does ALL the effort. Patient does none of the effort to complete the activity. Or, the assistance of 2 or more helpers is required for the patient to complete the activity. If activity was not attempted, code reason: 7-Patient Refused. 9-Not Applicable-not attempted and the patient did not perform the activity before the current illness, exacerbation or injury. 10-Not Attempted due to Environmental Limitations-(lack of equipment, weather restraints, etc.). 88-Not Attempted due to Medical Conditions or Safety Concerns. Oral Hygiene (QC): 3 Shower/Bathe Self (QC): 2 Upper Body Dressing (QC): 3 Lower Body Dressing (QC): 2 On/Off Footwear: 3 Education OT Patient Education: Safety issues Teaching Recipient: Patient Teaching Methods: Discussion Response to Teaching: Reinforcement Needed OT Short Term Goals Short Term Goals Time Frame: Apr 11, 2019 Eatin Oral hygiene: 4 Toileting hygiene: 3 Shower/bathe self: 3 Upper body dressin Lower body dressin Putting on/taking off footwear: 4 OT [facility] Goals Medical Language Specialist Goals Time Frame: Apr 25, 2019 Eating (QC): 6 Oral Hygiene (QC): 5 Toileting Hygiene (QC): 6 Shower/Bathe Self (QC): 4 Upper Body Dressing (QC): 4 Lower Body Dressing (QC): 4 On/Off Footwear (QC): 4 Additional Goals: 1-Demonstrate ADL Tasks, 2-Verbalize Understanding, 3- ImproveStrength/Hayder 1=Demonstrate adherence to instructed precautions during ADL tasks. 2=Patient will verbalize/demonstrate understanding of assistive devices/modifications for ADL. 3=Patient will improve strength/tolerance for activity to enable patient to perform ADL's. OT Education/Plan Discharge Recommendations Plan/Recommendations: Continue POC Treatment Plan/Plan of Care Patient would benefit from OT for education, treatment and training to promote independence in ADL's, mobility, safety and/or upper extremity function for ADL's. Plan of Care: ADL Retraining, Caregiver Training, Functional Mobility, Group Exercise/Act as Ind, UE Funct Exercise/Act Treatment Duration: Apr 25, 2019 Frequency: At least 5 of 7 days/Wk (IRF) Estimated Hrs Per Day: 1.5 hours per day Agreement: Yes Rehab Potential: Fair Time/GCodes Start Time: 09:15 Stop Time: 10:15 Total Time Billed (hr/min): 60 Billed Treatment Time 1 visit, ADLx4(60minutes) BOB GOMEZ OT Apr 05, 2019 11:29
--- NOTE | 2019-04-05 11:58 | ST Cognitive Linguistic Eval ---
Speech Evaluation-General Medical Diagnosis NV Onset Date: Mar 18, 2019 Therapy Diagnosis Therapy Diagnosis: Cognitive-communication Medical History Pertinent Medical History: HTN, NV Reviewed History: Yes Social History Current Living Status: Spouse Speech PLF-Current Status Prior Level of Function Patient lived at home with his and was independent for his daily needs. Subjective Patient was pleasant and cooperative with the cognitive assessment. Language Eval: Auditory Comprehends Simple Yes/No Ques: Functional Indent/Objects Multiple Rodriguez: Functional Ident/Pics in Multiple Rodriguez: Mild Follows 1-Step Commands: Functional Follows Complex Directions: Mild Follows General Conversations: Functional Language Eval: Verbal Language Completes Spontaneous Greeting: Functional Produces Auto, Serial Info: Mild Imitates Simple Words/Phrases: Mild Word Finding: Mild Requests Basic Needs: Functional States Basic Personal Info: Functional Expresses Complex Ideas: Moderate Objective Cognitive Domain Attention: WNL Memory: Moderate Problem Solving: Mild Visuospatial Skills: WNL Composite Severity Rating: Moderate Clock Drawing Severity Rating: Moderate Objective Formal/Standardized Tests [facility] Mental Status ([facility]) Results 14/30, moderate level of dementia Oral Motor/Speech Production Patient has decreased intelligibility at 80% Impression Patient is a 59 year old male who was admitted to the ARU s/p NV. Patient was given the SLUMS at bedside with a score of 14/30 obtained. Patient's score is within the moderate dementia range of function. Patient qualifies for ST with focus on improving cognitive function related to safety awareness and independence. Speech Patient Assess Expression of Ideas/Wants: Frequently (2) Understanding Verbal Content: Usually Understands (3) Brief Interview-Mental Status: Yes Repetition of Three Words: Three (3) Temporal Orientation: Year: Correct (3) Temporal Orientation: Month: Accurate within 5 days(2) Temporal Orientation: Day: Correct (1) Recall : Wear to say "Sock": No, could not recall (0) Recall : Color: No, could not recall (0) Recall : Bed: No, could not recall (0) Memory/Recall Ability: Current season, That he or she is in a hsp/hsp unit Speech Short Term Goals Short Term Goals Short Term Goals 1) Patient will complete memory exercises related to his daily living skills with 80% or greater. 2) Patient will complete safety awareness exercises related to his daily living skills with 80% or greater. 3) Patient will complete problem solving exercises related to his daily living skills with 80% or greater. 4) Patient will complete speech production exercises at 80% or greater with minimal cues. Speech Development Assistant Goals Senior Care Goals Patient will improve cognitive-communication and speech exercises necessary for safety and daily living tasks with minimal assist and effective communication. Speech-Plan Patient/Family Goals Patient/Family Goals: Patient plans on returning home with his upon hospital discharge. Treatment Plan Speech Therapy Treatment Plan: Continue Plan of Care Treatment Duration: Apr 15, 2019 Frequency: 5 times per week Estimated Hrs Per Day: .5 hour per day Rehab Potential: Fair Barriers to Learning: Patient has cognitive deficits and decreased speech intelligibility Pt/Family Agrees to Plan: Yes Safety Risks/Education Teaching Recipient: Patient Teaching Methods: Discussion Response to Teaching: Verbalize Understanding Education Topics Provided: Safety within his room and utilization of the call light as needed Time Speech Therapy Time In: 10:15 Speech Therapy Time Out: 10:30 Total Billed Time: 15 Billed Treatment Time 1, SPSNDCOMP NISA Jeff Apr 05, 2019 11:57
[2019-04-05] MEDS ORDERED: AMLO10TA7 PO (12:50)
[2019-04-05] MEDS ORDERED: DICL75TA2 PO (12:50)
[2019-04-05] MEDS ORDERED: ATOR10TA66 PO (12:50)
[2019-04-05] MEDS ORDERED: MTP25TSR PO (12:50)
[2019-04-05] MEDS ORDERED: LOSA100T57 PO (12:50)
[2019-04-05] MEDS ORDERED: ACET-2267 PO (12:53)
[2019-04-05] MEDS ORDERED: MULT1TAB69 PO (12:53)
--- NOTE | 2019-04-05 14:25 | Physical Therapy Daily Note ---
PT Daily Note-Current Subjective Patient in bed pre tx, agrees to PT, has no complaints of pain. Appearance Patient in bed post tx with nurse call, phone, tray, bed alarm on, in room. Mental Status Patient Orientation: Person, Place, Situation Transfers SCALE: Activities may be completed with or without assistive devices. 2-Dykxepanji-ieuyafc completes the activity by him/herself with no assistance from a helper. 5-Set-up or Clean-up Assistance-helper sets up or cleans up; patient completes activity. [place] assists only prior to or following the activity. 4-Supervision or Touching Assistance-helper provides verbal cues and/or touching/steadying and/or contact guard assistance as patient completes activity. Assistance may be provided throughout the activity or intermittently. 3-Partial/Moderate Assistance-helper does LESS THAN HALF the effort. [place] lifts, holds or supports trunk or limbs, but provides less than half the effort. 2-Substantial/Maximal Assistance-helper does MORE THAN HALF the effort. [place] lifts or holds trunk or limbs and provides more than half the effort. 0-Obstnxubp-fdavhj does ALL the effort. Patient does none of the effort to complete the activity. Or, the assistance of 2 or more helpers is required for the patient to complete the activity. If activity was not attempted, code reason: 7-Patient Refused. 9-Not Applicable-not attempted and the patient did not perform the activity before the current illness, exacerbation or injury. 10-Not Attempted due to Environmental Limitations-(lack of equipment, weather restraints, etc.). 88-Not Attempted due to Medical Conditions or Safety Concerns. Roll Left & Right (QC): 6 Sit to Lying (QC): 6 Lying to Sitting/Side of Bed(Q: 6 Sit to Stand (QC): 3 Chair/Suf-ig-Cxzjp Xfer(QC): 3 Weight Bearing Right Lower Extremity: Right Full Weight Bearing Left Lower Extremity: Left Full Weight Bearing Gait Training Distance: 120'x2 Walk 10 feet (QC): 3 Walk 50 ft with 2 Turns(QC): 3 Gait Assistive Device: FWW Min assist, poor balance and coordination, poor trunk control, patient instructed for slow, safe, controlled steps. Exercises NuStep Minutes: 10 NuStep Workload: 4 Treatments LE strengthening, ambulation, bed mobility and transfers Assessment Current Status: Fair Progress Patient needed frequent rest breaks due to fatigue PT Kiln Worker Goals Retirement Goals PT Kiln Worker Goals Time Frame: May 07, 2019 Roll Left & Right (QC): 6 Sit to Lying (QC): 6 Lying-Sitting on Side/Bed(QC): 6 Sit to Stand (QC): 5 Chair/Qzf-mh-Eukpm Xfer(QC): 5 Toilet Transfer (QC): 5 Car Transfer (QC): 5 Does the Patient Walk: Yes Walk 10 feet (QC): 6 Walk 50ft with 2 Turns (QC): 6 Walk 150 ft (QC): 6 Walking 10ft on Uneven Surface: 6 1 Step (curb) (QC): 6 4 Steps (QC): 6 12 Steps (QC): 6 Picking up an Object (QC): 6 PT Plan Problem List Problem List: Activity Tolerance, Functional Strength, Safety, Balance, Gait, Transfer, Bed Mobility Treatment/Plan Treatment Plan: Continue Plan of Care Treatment Plan: Bed Mobility, Concurrent Therapy, Education, Functional Activity Hayder, Functional Strength, Group Therapy, Gait, Safety, Therapeutic Exercise, Transfers Treatment Duration: May 07, 2019 Frequency: At least 5 of 7 days/Wk (IRF) Estimated Hrs Per Day: 1.5 hours per day Patient and/or Family Agrees t: Yes Safety Risks/Education Patient Education: Gait Training, Transfer Techniques, Correct Positioning, Safety Issues Teaching Recipient: Patient Teaching Methods: Demonstration, Discussion Response to Teaching: Reinforcement Needed Time/GCodes Time In: 1400 Time Out: 1430 Total Billed Treatment Time: 30 Total Billed Treatment 1 visit EX 10' GT 20' STEW CRAIG PT Apr 05, 2019 14:25
--- NOTE | 2019-04-05 14:45 | Occupational Ther Daily Note ---
OT Current Status-Daily Note Subjective Pt resting in bed with spouse present, agrees to treatment. ADL-Treatment Therapy Code Descriptions/Definitions Functional [place] Measure: 0=Not Assessed/NA 4=Minimal Assistance 1=Total Assistance 5=Supervision or Setup 2=Maximal Assistance 6=Modified [place] 3=Moderate Assistance 7=Complete IndependenceSCALE: Activities may be completed with or without assistive devices. 4-Ticqucsnkj-ittelez completes the activity by him/herself with no assistance from a helper. 5-Set-up or Clean-up Assistance-helper sets up or cleans up; patient completes activity. [place] assists only prior to or following the activity. 4-Supervision or Touching Assistance-helper provides verbal cues and/or touching/steadying and/or contact guard assistance as patient completes activity. Assistance may be provided throughout the activity or intermittently. 3-Partial/Moderate Assistance-helper does LESS THAN HALF the effort. [place] lifts, holds or supports trunk or limbs, but provides less than half the effort. 2-Substantial/Maximal Assistance-helper does MORE THAN HALF the effort. [place] lifts or holds trunk or limbs and provides more than half the effort. 6-Gvaxrmhks-gwssmr does ALL the effort. Patient does none of the effort to complete the activity. Or, the assistance of 2 or more helpers is required for the patient to complete the activity. If activity was not attempted, code reason: 7-Patient Refused. 9-Not Applicable-not attempted and the patient did not perform the activity before the current illness, exacerbation or injury. 10-Not Attempted due to Environmental Limitations-(lack of equipment, weather restraints, etc.). 88-Not Attempted due to Medical Conditions or Safety Concerns. Other Treatment Pt supine to sit with SBA. Pt required max assist to don and tie shoes while seated EOB. Pt has decreased sitting balance, requires assist for safety. Transfer to w/c with min assist. Pt attempted w/c mobility to therapy gym. Pt uncoordinated, has decreased trunk control, and difficulty following cues for sequencing. Requires assist to complete w/c mobility to gym. Pt performed resistance peg task with bilateral UE to increase coordination/manipulation skills. Pt has more difficulty with left and requires increased time and effort to complete. Graded clothespin activity with bilateral hands to increase strength and coordination. Pt able to complete activity with increased time. Pt returned to room, resting in bed with needs met, spouse and PT present. Bed alarm on. OT Short Term Goals Short Term Goals Time Frame: Apr 11, 2019 Eatin Oral hygiene: 4 Toileting hygiene: 3 Shower/bathe self: 3 Upper body dressin Lower body dressin Putting on/taking off footwear: 4 OT Casserole Preparer Goals Casserole Preparer Goals Time Frame: Apr 25, 2019 Eating (QC): 6 Oral Hygiene (QC): 5 Toileting Hygiene (QC): 6 Shower/Bathe Self (QC): 4 Upper Body Dressing (QC): 4 Lower Body Dressing (QC): 4 On/Off Footwear (QC): 4 Additional Goals: 1-Demonstrate ADL Tasks, 2-Verbalize Understanding, 3- ImproveStrength/Hay[place] 1=Demonstrate adherence to instructed precautions during ADL tasks. 2=Patient will verbalize/demonstrate understanding of assistive devices/modifications for ADL. 3=Patient will improve strength/tolerance for activity to enable patient to perform ADL's. OT Education/Plan Discharge Recommendations Plan/Recommendations: Continue POC Treatment Plan/Plan of Care Patient would benefit from OT for education, treatment and training to promote independence in ADL's, mobility, safety and/or upper extremity function for ADL's. Plan of Care: ADL Retraining, Caregiver Training, Functional Mobility, Group Exercise/Act as Ind, UE Funct Exercise/Act Treatment Duration: Apr 25, 2019 Frequency: At least 5 of 7 days/Wk (IRF) Estimated Hrs Per Day: 1.5 hours per day Agreement: Yes Rehab Potential: Fair Time/GCodes Start Time: 13:30 Stop Time: 14:00 Total Time Billed (hr/min): 30 Billed Treatment Time 1 visit, FAx2(30minutes) BOB GOMEZ OT Apr 05, 2019 14:45
--- NOTE | 2019-04-05 14:48 | NUR ---
RD ASSESSMENT PMHx: HTN; HLD; CAD; GERD PT INTERACTION: Pt was awake and pleasant during nutrition assessment. Pt states current appetite is good and has been for some time. Note avg PO intake of 75% x2meal, per chart review. Pt states following a regular diet at home and has no issues with chewing/swallowing food. Pt states no recent issues with n/v at this time. Pt states having issues with constipation, and that his last BM was "a week ago Thursday." Note pt currently on bowel regimen of bisacodyl qd, and senna BID, per chart review. Pt states some recent wt loss, but unsure of amount/timeframe. Note unable to determine recent wt hx, per chart review. ABNORMAL NUTRITION-RELATED LAB VALUES LOW: Na 134 HIGH: BUN 25; AST 38; ALT 85; alkphos 160 Est. kcal needs: 0213-3270 kcal | 25-30 kcal/kg Est. Pro needs: 63-76 g Pro | 1.0-1.2 g Pro/kg PES STATEMENT: Given pt's PO intake, no nutrition diagnosis at this time (NO-1.1) INTERVENTION: Continue with current diet order of Regular diet. Will continue to follow and reassess as pt needs and status change. MONITOR/EVALUATE: PO Intake; Plan of Care; Hydration Status; Weight Status; Lab Values Corrie Manjarrez, , RD, LD
--- NOTE | 2019-04-05 15:37 | NUR ---
CM/SS ADMISSION Patient was admitted to ARU 04/04/19 for Anoxic Brain Injury, STEMI/CAD, Malnutrition. Additional challenges include cognitive deficit, severe cardiac conditions, frail status. 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 He was found down and unresponsive in his work equipment, emergency personal responded and his rescue ensued. He was admitted to [facility] then graduated to our ARU for continued care. Prior to hospitalization patient resided with his , Sincere Hernandez. They have four children in reasonable proximity and they indicate them to be supportive and available as needed. DME: Patient has no history of need for DME and has none at this time. Will follow recommendations by therapy team regarding discharge planning. PCP: Hope Marquis INSURANCE: [employer] [facility] PHARMACY: [facility] ADV[facility]ED DIRECTIVE: Patient does not have this documentation but is interested in completing one. Provided paperwork for their review. CONTACTS: Sincere Hernandez, Christa Gonzalez, daughter [place], [place] [phone] Loki Hernandez, son Jyoti, daughter Deepak Hernandez, son Debby and Sincere understand the purpose of the weekly team conference. They have been informed physician has estimated LOS to be 10 days, but that this could be more or less depending on patient progress.
[2019-04-05] MEDS: TAMSULOSIN 0.4 MG (FLOMAX) CAP PO SCH (17:33)
--- NOTE | 2019-04-05 17:40 | NUR ---
STILL NO BM. DULCOLAX SUPPOSITORY GIVEN.
[2019-04-05 18:21] VITALS: BP 108/72
--- NOTE | 2019-04-05 18:21 | NUR ---
UP TO THE BR. MODERATE AMOUNT OF FORMED, BROWN STOOL NOTED.
[2019-04-05] MEDS: ENOXAPARIN 40 MG/0.4 ML (LOVENOX) SYR SC SCH (20:27)
[2019-04-05] MEDS: polyethylene glycoL POWDER 17 GM (MIRALAX) PACK PO SCH (20:30)
[2019-04-06] MEDS: CARVEDILOL 3.125 MG (COREG) TABLET PO SCH ×2 (06:07→17:43)
[2019-04-06 06:09] VITALS: BP 109/73
--- NOTE | 2019-04-06 08:31 | Cardiology Progress Note ---
Subjective Date Seen by Provider: Apr 06, 2019 Time Seen by Provider: 08:30 Subjective/Events-last exam Patient with PT, no new complaints. Denies any chest pain or dyspnea. Review of Systems General: No Chills, No Night Sweats, No Fatigue, No Malaise, No Appetite, No Other HEENT: No Head Aches, No Visual Changes, No Eye Pain, No Ear Pain, No Dysphasia, No Sinus Congestion, No Post Nasal Drip, No Sore Throat, No Other Pulmonary: No Dyspnea, No Cough, No Pleuritic Chest Pain, No Other Cardiovascular: No: Chest Pain, Palpitations, Orthopnea, Paroxysmal Noc. Dyspnea, Edema, Lt Headedness, Other Objective-Cardiology Exam Last Set of Vital Signs Vital Signs 04/06/19 04/06/19 04/06/19 06:09 09:41 09:42 Temp 37.2 Pulse 66 Resp 18 B/P (MAP) 112/77 (89) Pulse Ox 95 O2 Delivery Room Air Capillary Refill : Less Than 3 SecondsLess Than 3 Seconds I&O Intake and Output 04/06/19 00:00 Intake Total 1290 ml Output Total 1725 ml Balance -435 ml Intake Oral 1290 ml Output Urine Total 1725 ml # Bowel Movements 1 General: Alert, Oriented X3, Cooperative HEENT: Atraumatic, PERRLA Neck: Supple, No JVD, No Thyromegaly Lungs: Clear to Auscultation, Normal Air Movement Heart: Regular Rate, Normal S1, Normal S2, No Murmurs Abdomen: Normal Bowel Sounds, Soft, No Tenderness, No Hepatosplenomegaly, No Masses Extremities: No Clubbing, No Cyanosis, No Edema, Normal Pulses, No Tenderness/Swelling Skin: No Rashes, No Breakdown, No Significant Lesion Neuro: Normal Speech, Cranial Nerves 3-12 NL Psych/Mental Status: Mental Status NL, Mood NL A/P-Cardiology Admission Diagnosis s/p cardiac arrest STEMI CAD HTN HLP Assessment/Plan CAD, s/p cardiac arrest on 03/18/2019 with STEMI, underwent emergent cardiac catheterization done at [place] demonstrating 100% occlusion of cx, critical stenosis of LAD. Underwent Synergy [id number] stent to te mid circumflex and synergy 3.0x16mm stent to the proximal circumflex. Synergy 2.5 x20mm to mid LAD and Syncergy 2.75x 24mm to prox LAD. Currently on Plavix and ASA Cardiomyopathy, acute left ventricular systolic dysfunction secondary to acute myocardial infarction, underwent repeat 2-D echocardiogram yesterday, results pending. Bilateral pneumothorax, s/p CT placement, resolved, chest tubes discontinued Recent pneumonia- resolved, continue to monitor. Hypertension, currently borderline hypotensive. Maintained on Coreg 3.125mg BID and Lisinopril 5mg daily. Continue to monitor. Hyperlipidemia, maintained on stating, continue to monitor. Hx of RBBB. Constipation, management per PCP Urinary retention, payton in place, Dr. Gentile following Tobaccoism, patient chewed tobacco. Educated on avoiding tobacco product Arthritis, management per PCP Nonobstructive carotid artery stenosis-last carotid duplex done November 2015. Continue to monitor. Strong family history of heart disease Patient was seen and evaluated with Corine, examination performed, management plan was discussed, agree with the current scribed note, I made few changes to the note using Italic font Patient is feeling well. Continue on current medications and monitor, no changes are recommended Clinical Quality Measures DVT/VTE Risk/Contraindication: Risk Factor Score Per Nursin RFS Level Per Nursing on Admit: 4+=Very High CORINE QUINN Apr 06, 2019 8:31 am KIRIT CONTRERAS MD Apr 06, 2019 4:56 pm
--- NOTE | 2019-04-06 08:56 | Physical Therapy Daily Note ---
PT Daily Note-Current Subjective Pt. and in room. Pt. agrees to Rx. States he cant wear weights to walk today b/c his LEs are so sore. Pain Numeric Pain Scale: 5-Moderate Pain Location: Left (and right) Location Body Site: Thigh Pain Description: Tightness Mental Status Patient Orientation: Person, Place, Time, Situation Attachments: [place] Catheter Transfers SCALE: Activities may be completed with or without assistive devices. 0-Rjwlpquhfz-royovai completes the activity by him/herself with no assistance from a helper. 5-Set-up or Clean-up Assistance-helper sets up or cleans up; patient completes activity. [place] assists only prior to or following the activity. 4-Supervision or Touching Assistance-helper provides verbal cues and/or touching/steadying and/or contact guard assistance as patient completes activity. Assistance may be provided throughout the activity or intermittently. 3-Partial/Moderate Assistance-helper does LESS THAN HALF the effort. [place] lifts, holds or supports trunk or limbs, but provides less than half the effort. 2-Substantial/Maximal Assistance-helper does MORE THAN HALF the effort. [place] lifts or holds trunk or limbs and provides more than half the effort. 5-Upbsfddcf-hnorrp does ALL the effort. Patient does none of the effort to complete the activity. Or, the assistance of 2 or more helpers is required for the patient to complete the activity. If activity was not attempted, code reason: 7-Patient Refused. 9-Not Applicable-not attempted and the patient did not perform the activity before the current illness, exacerbation or injury. 10-Not Attempted due to Environmental Limitations-(lack of equipment, weather restraints, etc.). 88-Not Attempted due to Medical Conditions or Safety Concerns. Roll Left & Right (QC): 6 Sit to Lying (QC): 6 Lying to Sitting/Side of Bed(Q: 6 Sit to Stand (QC): 5 Chair/Lnx-hr-Jilvv Xfer(QC): 5 Weight Bearing Right Lower Extremity: Right Full Weight Bearing Left Lower Extremity: Left Full Weight Bearing Gait Training Does the Patient Walk?: Yes Walk 10 feet (QC): 4 Walk 50 ft with 2 Turns(QC): 3 Gait Persons Needed: 1 Gait Assistive Device: FWW and w/c to f/u, pt. with many cross overs and LOB , unsteady at trunk and LEs Wheelchair Training Does the Pt Use a Wheelchair?: Yes Wheel 50 ft with 2 turns (QC): 4 Exercises Supine Ex: Bridging, Ankle pumps, Rolling, Heel Slides, Scooting, Straight leg raise, Hip abd/add Supine Reps: 20 Standing: Marching, Side steps, Weight shifts Standing Reps: 12 Treatments ataxic with all movment, LLE and UE weak Assessment Current Status: Good Progress gives full effort PT Manufacturer Representative Goals Custodial Goals PT Manufacturer Representative Goals Time Frame: May 07, 2019 Roll Left & Right (QC): 6 Sit to Lying (QC): 6 Lying-Sitting on Side/Bed(QC): 6 Sit to Stand (QC): 5 Chair/Atb-sr-Vwrgz Xfer(QC): 5 Toilet Transfer (QC): 5 Car Transfer (QC): 5 Does the Patient Walk: Yes Walk 10 feet (QC): 6 Walk 50ft with 2 Turns (QC): 6 Walk 150 ft (QC): 6 Walking 10ft on Uneven Surface: 6 1 Step (curb) (QC): 6 4 Steps (QC): 6 12 Steps (QC): 6 Picking up an Object (QC): 6 PT Plan Treatment/Plan Treatment Plan: Continue Plan of Care Treatment Plan: Bed Mobility, Concurrent Therapy, Education, Functional Activity [place], Functional Strength, Group Therapy, Gait, Safety, Therapeutic Exercise, Transfers Treatment Duration: May 07, 2019 Frequency: At least 5 of 7 days/Wk (IRF) Estimated Hrs Per Day: 1.5 hours per day Patient and/or Family Agrees t: Yes Safety Risks/Education Patient Education: Gait Training, Transfer Techniques, Correct Positioning, Disease Process, Safety Issues Teaching Recipient: Patient Teaching Methods: Demonstration, Discussion Response to Teaching: Verbalize Understanding, Return Demonstration, Reinforcement Needed Time/GCodes Time In: 800 Time Out: 900 Total Billed Treatment Time: 60 Total Billed Treatment 1,EX20m,FA15m,GT25m MANAN [employer]CONNELL [employer]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
[2019-04-06 09:41] VITALS: BP 111/74
[2019-04-06 09:42] VITALS: BP 112/77
[2019-04-06] MEDS: LACTULOSE SYRUP 10GM/15ML (ENULOSE) 30ML UDC PO SCH ×3 (09:47→21:07)
[2019-04-06] MEDS: ASPIRIN 81 MG CHEW (CHILDREN'S ASA) PO SCH (09:48)
[2019-04-06] MEDS: SENNA W/DOCUSATE (SENOKOT S) TABLET PO SCH ×2 (09:48→21:07)
[2019-04-06] MEDS: lisINopril 5 MG (PRINIVIL) TABLET PO SCH (09:48)
[2019-04-06] MEDS: DOCUSATE SODIUM 100 MG (COLACE) CAP PO SCH ×2 (09:48→21:07)
[2019-04-06] MEDS: CLOPIDOGREL 75 MG (PLAVIX) TABLET PO SCH (09:48)
--- NOTE | 2019-04-06 09:51 | PM&R Progress Note ---
Subjective HPI/CC On Admission Date Seen by Provider: Apr 06, 2019 Time Seen by Provider: 09:30 Subjective/Events-last exam Pt doing pretty well but very impulsive Dr. Diez started him on Flomax Maintain with payton will initiate a voiding trial tomorrow Had multiple bowel movements yesterday after multiple laxatives Dr. Cruz is managing systolic BP Conferred with RN. Reviewed therapy notes. Checked meds and labs. Review of Systems General: Fatigue, Malaise Genitourinary: Retention Neurological: Confusion Objective Exam Vital Signs Vital Signs Date Time Temp Pulse Resp B/P (MAP) Pulse Ox O2 Delivery O2 Flow Rate FiO2 04/06/19 17:08 36.6 73 22 103/73 (83) 97 Room Air Capillary Refill : Less Than 3 SecondsLess Than 3 Seconds General Appearance: No Apparent Distress, WD/WN, Chronically ill, Thin HEENT: PERRL/EOMI, Normal ENT Inspection, Pharynx Normal Neck: Full Range of Motion, Normal Inspection, Non Tender, Supple, Carotid Bruit Respiratory: Chest Non Tender, Lungs Clear, Normal Breath Sounds, No Accessory Muscle Use, No Respiratory Distress Cardiovascular: Regular Rate, Rhythm, No Edema, No Gallop, No JVD, No Murmur, Normal Peripheral Pulses Gastrointestinal: Normal Bowel Sounds, No Organomegaly, No Pulsatile Mass, Non Tender, Soft Back: Normal Inspection, No CVA Tenderness, No Vertebral Tenderness Extremity: Normal Capillary Refill, Normal Inspection, Normal Range of Motion, Non Tender, No Calf Tenderness, No Pedal Edema Neurologic/Psychiatric: Alert, Oriented x3, No Motor/Sensory Deficits, Normal Mood/Affect, Disoriented (subtle slow responses and recall), Motor Weakness (generalized all extremities, impulsive) Skin: Normal Color, Warm/Dry Lymphatic: No Adenopathy Results/Procedures Lab Patient resulted labs reviewed. FIM Transfers Therapy Code Descriptions/Definitions Functional [place] Measure: 0=Not Assessed/NA 4=Minimal Assistance 1=Total Assistance 5=Supervision or Setup 2=Maximal Assistance 6=Modified [place] 3=Moderate Assistance 7=Complete IndependenceSCALE: Activities may be completed with or without assistive devices. 4-Juxasjzefv-pjdhbry completes the activity by him/herself with no assistance from a helper. 5-Set-up or Clean-up Assistance-helper sets up or cleans up; patient completes activity. [place] assists only prior to or following the activity. 4-Supervision or Touching Assistance-helper provides verbal cues and/or touching/steadying and/or contact guard assistance as patient completes activity. Assistance may be provided throughout the activity or intermittently. 3-Partial/Moderate Assistance-helper does LESS THAN HALF the effort. [place] lifts, holds or supports trunk or limbs, but provides less than half the effort. 2-Substantial/Maximal Assistance-helper does MORE THAN HALF the effort. [place] lifts or holds trunk or limbs and provides more than half the effort. 7-Csofajmtp-pfajcn does ALL the effort. Patient does none of the effort to complete the activity. Or, the assistance of 2 or more helpers is required for the patient to complete the activity. If activity was not attempted, code reason: 7-Patient Refused. 9-Not Applicable-not attempted and the patient did not perform the activity befo re the current illness, exacerbation or injury. 10-Not Attempted due to Environmental Limitations-(lack of equipment, weather re straints, etc.). 88-Not Attempted due to Medical Conditions or Safety Concerns. Roll Left to Right (QC): 6 Sit to Lying (QC): 6 Sit to Stand (QC): 5 Chair/Mxj-un-Efkoc Xfer(QC): 5 Car Transfer (QC): 2 Gait Training Does the Patient Walk?: Yes Distance: 120'x2 Walk 10 feet (QC): 4 Walk 50 ft with 2 Turns(QC): 3 Walk 150 ft (QC): 88 Walking 10ft/uneven surface-QC: 2 (x 2 assist) Gait Persons Needed: 1 Gait Assistive Device: FWW Wheelchair Training Does the Pt Use a Wheelchair?: Yes Wheel 50 ft with 2 turns (QC): 4 Wheel 150 ft (QC): 88 Type of Wheelchair: Manual Stair Training #of Steps: 1 1 Step (curb) (QC): 2 (assist x 2 for safety) 4 Steps (QC): 88 12 Steps (QC): 88 Balance Picking up an Object (QC): 3 ADL-Treatment Oral Hygiene (QC): 3 Shower/Bathe Self (QC): 2 Upper Body Dressing (QC): 3 Lower Body Dressing (QC): 2 On/Off Footwear (QC): 3 Assessment/Plan Assessment and Plan Assess & Plan/Chief Complaint Assessment: Anoxic brain injury Cognitive deficit CAD Constipation severe Urinary retention requiring payton cath Plan: IRF protocol BM regimen Cardiology appreciated Dr Gentile appreciated Voiding trial tomorrow (1) Anoxic brain injury (2) CAD (coronary artery disease) (3) Malnutrition (4) Urinary retention (5) Constipation (6) Payton catheter in place (7) Hypertension RENEE JARVIS DO Apr 06, 2019 09:51
--- NOTE | 2019-04-06 09:52 | Individualized Plan of Care ---
Individualized Plan of Care Rehab Nursing IPOC Order Admission Date Apr 04, 2019 at 14:35 Current Orders Orders Admission Order(Inpt,Obs,Sdc) (04/04/19 12:36) Vital Signs: Per Unit Policy ( 08,16,00 (04/04/19 12:36) Dhiraj Jara 09,21 (04/04/19 12:36) Sequential Compression Device Q4H (04/04/19 12:36) Hogshead Dumper-Inpt Rehab Con (04/04/19 12:36) Rehab Nursing Orders-Ipoc (04/04/19 12:36) Physical Therapy Rehab Orders (04/04/19 12:36) Occupational Therapy Rehab Ord (04/04/19 12:36) Speech Therapy Rehab Orders (04/04/19 12:36) Cbc With Automated Diff (04/05/19 06:00) Comprehensive Metabolic Panel (04/05/19 06:00) General/Regular (04/04/19 Dinner) Intake & Output ,, (04/04/19 12:36) Precautions (Aru) (04/04/19 12:36) Weekly Weight WEEK (04/04/19 12:36) Rehab-Intensity Of Therapy (04/04/19 12:36) Initiate Admission Nursing Pro .admission (04/04/19 12:36) Alprazolam Tablet (Xanax Tablet) (04/04/19 12:45) Calcium Carbonate Chew Tablet (Antacid C (04/04/19 12:45) Diphenhydramine Tablet (Benadryl Tablet) (04/04/19 12:45) Docusate Sodium Capsule (Colace Capsule) (04/04/19 21:00) Docusate Sodium Capsule (Colace Capsule) (04/04/19 12:45) Bisacodyl Suppository (Dulcolax Supposit (04/04/19 12:45) Lactulose Oral Solution (Enulose Oral So (04/04/19 12:45) Na Phos/Na Biphos Enema (Fleet Enema Kristian (04/04/19 12:45) Guaifenesin/Codeine Syrup (Robitussin Ac (04/04/19 12:45) Loperamide Tablet (Imodium Tablet) (04/04/19 12:45) Melatonin Tablet (Melatonin Tablet) (04/04/19 12:45) Polyethylene Glycol Powder Pkt (Miralax (04/04/19 21:00) Ondansetron Oral Dissolve Tab (Zofran (04/04/19 12:45) Senna S Tablet (Senokot S Tablet) (04/04/19 21:00) Initiate Admission Nursing Pro .admission (04/04/19 12:36) Patient Visit (04/04/19 ) Pt Eval Moderate Complexity (04/04/19 ) Functional Activities, Ea 15 (04/04/19 ) Aspirin Chewable Tablet (Baby Aspirin Ch (04/05/19 09:00) Atorvastatin Tablet (Lipitor) (04/04/19 21:00) Carvedilol Tablet (Coreg Tablet) (04/05/19 07:00) Clopidogrel Tablet (Plavix Tablet) (04/05/19 09:00) Lisinopril Tablet (Zestril Tablet) (04/05/19 09:00) (Nf) Fluticasone Propionate (Flonase All (04/05/19 09:00) Polyethylene Glycol Powder Pkt (Miralax (04/04/19 21:00) Lactulose Oral Solution (Enulose Oral So (04/04/19 18:30) Consult Cardiology (04/04/19 18:24) Consult Urology (04/04/19 18:24) Bisacodyl Suppository (Dulcolax Supposit (04/05/19 09:00) Fluticasone Nasal [place] (Flonase Nasal S (04/05/19 09:00) Enoxaparin Injection (Lovenox Injection) (04/04/19 20:30) Request Ot Evaluate & Treat (04/04/19 20:09) Ambulate 08,12,20 (04/04/19 20:12) Sequential Compression Device Q4H (04/04/19 20:12) Dvt/Vte Risk - Notifiy Physici Q4H (04/04/19 20:12) Ensure Enlive (04/05/19 Breakfast) Influenza Quad (5+Yoa) (Afluria (04/04/19 20:30) Tamsulosin Capsule (Flomax Capsule) (04/05/19 18:00) Echo W Doppler/Color Flow (04/05/19 11:34) Patient Visit (04/05/19 ) Speech Sound Lang Comp (04/05/19 ) Patient Visit (04/05/19 ) Gait Training, Ea 15 Min (04/05/19 ) Exercise Therap, Ea 15 Min (04/05/19 ) Functional Activities, Ea 15 (04/05/19 ) Catheter(Urinary) Discontinue (04/06/19 11:31) Patient Visit (04/06/19 ) Treat. Speech/Lang/Voice (04/06/19 ) Patient Visit (04/06/19 ) Exercise Therap, Ea 15 Min (04/06/19 ) Functional Activities, Ea 15 (04/06/19 ) Gait Training, Ea 15 Min (04/06/19 ) Wheelchair Mgmt/Propulsn 15min (04/06/19 ) Dietary Consult (04/06/19 17:54) Rehab Nursing Orders: Ongoing Assess. of Cognitive Status, Ongoing Assess. of Function Status, Bladder Management, Bladder Scan, Bladder Training, Bowel Management, Bowel Training, Disease Management & Educaiton, DVT Prophylaxis, Fall Prevention, Fluid/Electrolyte/Nutrition Mgmt, Infection Prevention, Medication Management & Education, Management of Risks & Complications, Management of Skin Intergrity, Nutrition Management, Pain Management, Patient/Family Support, Safety Management, Swallow Precautions Intensity of Therapy to be met Patient to be seen: Min.3h per day/5 of 7d PT IPOC Problem List: Activity Tolerance, Functional Strength, Safety, Balance, Gait, Transfer, Bed Mobility Treatment Plan: Continue Plan of Care Bed Mobility, Concurrent Therapy, Education, Functional Activity Hayder, Functional Strength, Group Therapy, Gait, Safety, Therapeutic Exercise, Transfers Treatment Duration: May 07, 2019 Frequency: At least 5 of 7 days/Wk (IRF) Estimated Hrs Per Day: 1.5 hours per day OT IPOC Problems: Decreased Activ Tolerance, Decreased Safety Aware, Decreased UE Strength, Dependent Transfers, Impaired Cognition, Impaired Coordination, Impaired Funct Balance, Impaired I ADL's, Impaired Self-Care Skills OT Treatment, Training and Edu: Yes Plan of Care: ADL Retraining, Caregiver Training, Functional Mobility, Group Exercise/Act as Ind, UE Funct Exercise/Act Treatment Duration: Apr 25, 2019 Frequency: At least 5 of 7 days/Wk (IRF) Estimated Hrs Per Day: 1.[address] IPOC Speech Therapy Treatment Plan: Continue Plan of Care Treatment Duration: Apr 15, 2019 Frequency: 5 times per week Estimated Hrs Per Day: .5 hour per day Hogshead Dumper/Case Mgmt Hogshead Dumper/Case Managemen: Discharge Planning Dietitian/Software Development Intern Dietitian/Software Development Intern to monitor nutritional status and make changes and/or recommendations as needed and work with speech pathology on dietary upgrades as the occur. Physician IPOC Medical Issues being managed closely and that require the 24 hour availability of a physician: Recent cardiac arrest and resultant anoxic brain injury will require close monitoring while strengthening in order to return home with Medical Issues: Bowel/Bladder Function, DVT Prophylaxis, Falls Precautions, Fluid/Electrolyte/Nutrition Balance, Infection Protection, Pain Management, Swallowing Precautions Brief Synthesis of Preadmission Screen, Post-Admission Evaluation, and Therapy Evaluations: PT and OT will focus on strengthening and transfers and fall risk prevention and ST will focus on cognitive deficits Medical Prognosis: Good Anticipated Length of Stay: 10 days RENEE JARVIS DO Apr 06, 2019 09:51
[2019-04-06] MEDS: FLUTICASONE NASAL SPRAY (FLONASE) 16 GM BTL NS SCH (09:55)
--- NOTE | 2019-04-06 10:43 | Occupational Ther Daily Note ---
OT Current Status-Daily Note Subjective Pt in bed, agrees to treatment. Pt reports "soreness" in arms and legs. Mental Status/Objective Attachments: Castro Catheter ADL-Treatment Pt declined bathing or dressing this morning. Supine to sit with SBA. Pt transferred to w/c with min assist for balance and skilled cues for safety. Pt completed grooming tasks while seated at sink. Pt brushed teeth with SBA. Washed face with set up. And combed hair with min assist. Therapy Code Descriptions/Definitions Functional [place] Measure: 0=Not Assessed/NA 4=Minimal Assistance 1=Total Assistance 5=Supervision or Setup 2=Maximal Assistance 6=Modified [place] 3=Moderate Assistance 7=Complete IndependenceSCALE: Activities may be completed with or without assistive devices. 1-Pmblwhekfm-jyurhpv completes the activity by him/herself with no assistance from a helper. 5-Set-up or Clean-up Assistance-helper sets up or cleans up; patient completes activity. [place] assists only prior to or following the activity. 4-Supervision or Touching Assistance-helper provides verbal cues and/or t ouching/steadying and/or contact guard assistance as patient completes activity. Assistance may be provided throughout the activity or intermittently. 3-Partial/Moderate Assistance-helper does LESS THAN HALF the effort. [place] lifts, holds or supports trunk or limbs, but provides less than half the effort. 2-Substantial/Maximal Assistance-helper does MORE THAN HALF the effort. [place] lifts or holds trunk or limbs and provides more than half the effort. 5-Muqdsiuhu-tybrtz does ALL the effort. Patient does none of the effort to complete the activity. Or, the assistance of 2 or more helpers is required for the patient to complete the activity. If activity was not attempted, code reason: 7-Patient Refused. 9-Not Applicable-not attempted and the patient did not perform the activity before the current illness, exacerbation or injury. 10-Not Attempted due to Environmental Limitations-(lack of equipment, weather restraints, etc.). 88-Not Attempted due to Medical Conditions or Safety Concerns. Oral Hygiene (QC): 4 Other Treatment To therapy gym via w/c. Pt completed small peg activity with bilateral hands to increase fine motor coordination skills. Pt able to complete task with right hand without difficulty. Pt has decreased coordination with left hand and frequently drops pegs. Requires increased time and effort to complete task. Pt used left UE to stack small and large cones to promote reaching, grasp release, and coordination. Pt completed bilateral UE exercises to increase strength needed for functional task completion. Pt performed three exercises x10 reps with dowel meg. Rest breaks between exercises. Putty activity with bilateral hands to increase field court researcher strength. Pt returned to room, transferred to bed with m in assist. Pt resting in bed with needs met, spouse present, and bed alarm on after session. Education OT Patient Education: Safety issues Teaching Recipient: Patient Teaching Methods: Discussion Response to Teaching: Reinforcement Needed OT Short Term Goals Short Term Goals Time Frame: Apr 11, 2019 Eatin Oral hygiene: 4 Toileting hygiene: 3 Shower/bathe self: 3 Upper body dressin Lower body dressin Putting on/taking off footwear: 4 OT Nephrologist Goals Nephrologist Goals Time Frame: Apr 25, 2019 Eating (QC): 6 Oral Hygiene (QC): 5 Toileting Hygiene (QC): 6 Shower/Bathe Self (QC): 4 Upper Body Dressing (QC): 4 Lower Body Dressing (QC): 4 On/Off Footwear (QC): 4 Additional Goals: 1-Demonstrate ADL Tasks, 2-Verbalize Understanding, 3-ImproveStrength/Hayder 1=Demonstrate adherence to instructed precautions during ADL tasks. 2=Patient will verbalize/demonstrate understanding of assistive devices/modifications for ADL. 3=Patient will improve strength/tolerance for activity to enable patient to perform ADL's. OT Education/Plan Discharge Recommendations Plan/Recommendations: Continue POC Treatment Plan/Plan of Care Patient would benefit from OT for education, treatment and training to promote independence in ADL's, mobility, safety and/or upper extremity function for ADL's. Plan of Care: ADL Retraining, Caregiver Training, Functional Mobility, Group Exercise/Act as Ind, UE Funct Exercise/Act Treatment Duration: Apr 25, 2019 Frequency: At least 5 of 7 days/Wk (IRF) Estimated Hrs Per Day: 1.5 hours per day Agreement: Yes Rehab Potential: Fair Time/GCodes Start Time: 09:15 Stop Time: 10:15 Total Time Billed (hr/min): 60 Billed Treatment Time 1 visit, ADLx2(25minutes), FA(15minutes), EX(20minutes) BOB GOMEZ OT Apr 06, 2019 10:43
--- NOTE | 2019-04-06 11:04 | Speech Therapy Daily Note ---
Speech Daily Progress Note Subjective Date Seen by Provider: Apr 06, 2019 Time Seen by Provider: 00:30 Patient was more alert and was able to participate with tasks well today. Patient's was present for our therapy session. Objective Patient completed a series of general information questions to complete given a specific letter to begin the answers with at 70% with moderate cues and/or repetitions. Assessment Assessment Current Status: Fair Progress Treatment Plan Continue Plan of Care Speech Short Term Goals Short Term Goals Short Term Goals 1) Patient will complete memory exercises related to his daily living skills with 80% or greater. 2) Patient will complete safety awareness exercises related to his daily living skills with 80% or greater. 3) Patient will complete problem solving exercises related to his daily living skills with 80% or greater. 4) Patient will complete speech production exercises at 80% or greater with minimal cues. Speech Nursing Home Goals Nursing Home Goals Patient will improve cognitive-communication and speech exercises necessary for safety and daily living tasks with minimal assist and effective communication. Speech-Plan Patient/Family Goals Patient/Family Goals: Patient plans on returning home with his upon rehab discharge. Treatment Plan Speech Therapy Treatment Plan: Continue Plan of Care Treatment Duration: Apr 15, 2019 Frequency: 5 times per week Estimated Hrs Per Day: .5 hour per day Rehab Potential: Fair Barriers to Learning: Patient has cognitive deficits Pt/Family Agrees to Plan: Yes Safety Risks/Education Teaching Recipient: Patient, Family Teaching Methods: Demonstration, Discussion Response to Teaching: Verbalize Understanding, Return Demonstration Education Topics Provided: Continued safety within his room and communication of his wants/needs Time Speech Therapy Time In: 10:30 Speech Therapy Time Out: 11:00 Total Billed Time: 30 Billed Treatment Time 1ABEBE [address] ST Apr 06, 2019 11:04
[2019-04-06] MEDS: BISACODYL 10 MG SUPP (DULCOLAX) PR SCH (11:13)
--- NOTE | 2019-04-06 11:31 | Progress Note - Urology ---
Progress Note-Urology Progress Notes/Assess & Plan Progress/Assessment & Plan TOLERATES FLOMAX WELL. TOV TOMORROW Final Diagnosis URINE RETENTION EDMUNDO DICK MD Apr 06, 2019 11:31
--- NOTE | 2019-04-06 13:03 | Occupational Ther Daily Note ---
OT Current Status-Daily Note Subjective Pt in bed, agrees to therapy. Pt reports muscle soreness. ADL-Treatment Therapy Code Descriptions/Definitions Functional [place] Measure: 0=Not Assessed/NA 4=Minimal Assistance 1=Total Assistance 5=Supervision or Setup 2=Maximal Assistance 6=Modified [place] 3=Moderate Assistance 7=Complete IndependenceSCALE: Activities may be completed with or without assistive devices. 7-Ohmdmieuxf-drzfurm completes the activity by him/herself with no assistance from a helper. 5-Set-up or Clean-up Assistance-helper sets up or cleans up; patient completes activity. [place] assists only prior to or following the activity. 4-Supervision or Touching Assistance-helper provides verbal cues and/or touching/steadying and/or contact guard assistance as patient completes activity. Assistance may be provided throughout the activity or intermittently. 3-Partial/Moderate Assistance-helper does LESS THAN HALF the effort. [place] lifts, holds or supports trunk or limbs, but provides less than half the effort. 2-Substantial/Maximal Assistance-helper does MORE THAN HALF the effort. [place] lifts or holds trunk or limbs and provides more than half the effort. 1-Cblvpaibh-anuotd does ALL the effort. Patient does none of the effort to complete the activity. Or, the assistance of 2 or more helpers is required for the patient to complete the activity. If activity was not attempted, code reason: 7-Patient Refused. 9-Not Applicable-not attempted and the patient did not perform the activity before the current illness, exacerbation or injury. 10-Not Attempted due to Environmental Limitations-(lack of equipment, weather restraints, etc.). 88-Not Attempted due to Medical Conditions or Safety Concerns. Other Treatment Pt supine to sit with SBA. Pt completed bilateral UE activity to promote reaching with UE, core strength, and balance. Pt had mildly decreased sitting balance when reaching outside base of support, but able to correct with cues. Pt complete ball catch/toss while seated to promote bilateral UE coordination and sitting balance. Pt able to catch/toss ball with occasional min assist for balance when reaching forward. Pt is impulsive at times and requires assist for safety. Pt sit to stand x2 with CGA. Pt completed arm arc activity while standing to increase activity tolerance, standing balance, and UE ROM/coordination. Pt has decreased coordination/manipulation with left hand, occasionally drops items. Pt requires min assist for standing balance during task and skilled cues for safety. Pt returned to supine with SBA. Pt resting in bed with needs met and spouse present after session. OT Short Term Goals Short Term Goals Time Frame: Apr 11, 2019 Eatin Oral hygiene: 4 Toileting hygiene: 3 Shower/bathe self: 3 Upper body dressin Lower body dressin Putting on/taking off footwear: 4 OT Mamma Logist Goals Mamma Logist Goals Time Frame: Apr 25, 2019 Eating (QC): 6 Oral Hygiene (QC): 5 Toileting Hygiene (QC): 6 Shower/Bathe Self (QC): 4 Upper Body Dressing (QC): 4 Lower Body Dressing (QC): 4 On/Off Footwear (QC): 4 Additional Goals: 1-Demonstrate ADL Tasks, 2-Verbalize Understanding, 3- ImproveStrength/Hayder 1=Demonstrate adherence to instructed precautions during ADL tasks. 2=Patient will verbalize/demonstrate understanding of assistive devices/modifications for ADL. 3=Patient will improve strength/tolerance for activity to enable patient to perform ADL's. OT Education/Plan Discharge Recommendations Plan/Recommendations: Continue POC Treatment Plan/Plan of Care Patient would benefit from OT for education, treatment and training to promote independence in ADL's, mobility, safety and/or upper extremity function for ADL's. Plan of Care: ADL Retraining, Caregiver Training, Functional Mobility, Group Exercise/Act as Ind, UE Funct Exercise/Act Treatment Duration: Apr 25, 2019 Frequency: At least 5 of 7 days/Wk (IRF) Estimated Hrs Per Day: 1.5 hours per day Agreement: Yes Rehab Potential: Fair Time/GCodes Start Time: 11:30 Stop Time: 12:00 Total Time Billed (hr/min): 30 Billed Treatment Time 1 visit, FAx2(30minutes) BOB GOMEZ OT Apr 06, 2019 13:03
--- NOTE | 2019-04-06 14:37 | Physical Therapy Daily Note ---
PT Daily Note-Current Subjective Pt. agreeable to Rx but states he is so very tired. Pain Location: No Pain Reported Mental Status Patient Orientation: Person, Place, Time, Situation Transfers SCALE: Activities may be completed with or without assistive devices. 4-Qjatuxpalt-yvouvhm completes the activity by him/herself with no assistance from a helper. 5-Set-up or Clean-up Assistance-helper sets up or cleans up; patient completes activity. [place] assists only prior to or following the activity. 4-Supervision or Touching Assistance-helper provides verbal cues and/or touching/steadying and/or contact guard assistance as patient completes activity. Assistance may be provided throughout the activity or intermittently. 3-Partial/Moderate Assistance-helper does LESS THAN HALF the effort. [place] lifts, holds or supports trunk or limbs, but provides less than half the effort. 2-Substantial/Maximal Assistance-helper does MORE THAN HALF the effort. [place] lifts or holds trunk or limbs and provides more than half the effort. 9-Baoswkopu-oleabq does ALL the effort. Patient does none of the effort to complete the activity. Or, the assistance of 2 or more helpers is required for the patient to complete the activity. If activity was not attempted, code reason: 7-Patient Refused. 9-Not Applicable-not attempted and the patient did not perform the activity before the current illness, exacerbation or injury. 10-Not Attempted due to Environmental Limitations-(lack of equipment, weather restraints, etc.). 88-Not Attempted due to Medical Conditions or Safety Concerns. sup to sit and sit to sup and SPTs bed to w/c and back with instruction and min to CGA Weight Bearing Right Lower Extremity: Right Full Weight Bearing Left Lower Extremity: Left Full Weight Bearing Gait Training Gait Assistive Device: FWW 10 ft x 3 mod to min assist Wheelchair Training Type of Wheelchair: Manual much work on grasping with left hand and manuevering turns and backing and approaching etc Exercises NuStep Minutes: 10 NuStep Workload: 3 Treatments pt. requested 3 rest breaks on nustep Assessment Current Status: Good Progress PT Emergency Department Director Goals Emergency Department Director Goals PT [facility] Goals Time Frame: May 07, 2019 Roll Left & Right (QC): 6 Sit to Lying (QC): 6 Lying-Sitting on Side/Bed(QC): 6 Sit to Stand (QC): 5 Chair/Syf-vq-Rxnfw Xfer(QC): 5 Toilet Transfer (QC): 5 Car Transfer (QC): 5 Does the Patient Walk: Yes Walk 10 feet (QC): 6 Walk 50ft with 2 Turns (QC): 6 Walk 150 ft (QC): 6 Walking 10ft on Uneven Surface: 6 1 Step (curb) (QC): 6 4 Steps (QC): 6 12 Steps (QC): 6 Picking up an Object (QC): 6 PT Plan Treatment/Plan Treatment Plan: Continue Plan of Care Treatment Plan: Bed Mobility, Concurrent Therapy, Education, Functional Activity Hayder, Functional Strength, Group Therapy, Gait, Safety, Therapeutic Exercise, Transfers Treatment Duration: May 07, 2019 Frequency: At least 5 of 7 days/Wk (IRF) Estimated Hrs Per Day: 1.5 hours per day Patient and/or Family Agrees t: Yes Safety Risks/Education Patient Education: Gait Training, Transfer Techniques, W/C Management, Disease Process, Safety Issues Teaching Recipient: Patient Teaching Methods: Demonstration, Discussion Response to Teaching: Verbalize Understanding, Return Demonstration, Reinforcement Needed Time/GCodes Time In: 1400 Time Out: 1430 Total Billed Treatment Time: 30 Total Billed Treatment 1,WC15m,EX15m MANAN OCONNELL FIELD EXAMINER Apr 06, 2019 14:37
[2019-04-06 17:08] VITALS: BP 103/73
[2019-04-06] MEDS: TAMSULOSIN 0.4 MG (FLOMAX) CAP PO SCH (17:43)
[2019-04-06] MEDS: ENOXAPARIN 40 MG/0.4 ML (LOVENOX) SYR SC SCH (20:19)
[2019-04-06] MEDS: polyethylene glycoL POWDER 17 GM (MIRALAX) PACK PO SCH (21:07)
[2019-04-07 05:03] VITALS: BP 98/49
[2019-04-07] MEDS: CARVEDILOL 3.125 MG (COREG) TABLET PO SCH ×2 (05:43→17:10)
[2019-04-07 06:01] VITALS: BP 108/71
[2019-04-07 08:00] VITALS: BP 102/64
--- NOTE | 2019-04-07 08:00 | NUR ---
ASSISTED UP TO BATHROOM BY 2 NURSES. EXPELLED BM AND VOIDED AN UNKNOWN AMOUNT IN TOILET. SPECIMEN HAT PLACED IN TOILET AND URINAL AT BEDSIDE. ENCOURAGED PATIENT TO HELP KEEP TRACK OF AMOUNT VOIDED.
--- NOTE | 2019-04-07 08:29 | Cardiology Progress Note ---
Subjective Date Seen by Provider: Apr 07, 2019 Time Seen by Provider: 08:15 Subjective/Events-last exam Patient is sitting up in bed, no new complaints. Denies any chest pain or d yspnea. Review of Systems General: No Chills, No Night Sweats, No Fatigue, No Malaise, No Appetite, No Other HEENT: No Head Aches, No Visual Changes, No Eye Pain, No Ear Pain, No Dysphasia, No Sinus Congestion, No Post Nasal Drip, No Sore Throat, No Other Pulmonary: No Dyspnea, No Cough, No Pleuritic Chest Pain, No Other Cardiovascular: No: Chest Pain, Palpitations, Orthopnea, Paroxysmal Noc. Dyspnea, Edema, Lt Headedness, Other Objective-Cardiology Exam Last Set of Vital Signs Vital Signs 04/07/19 04/07/19 05:03 06:01 Temp 37.1 Pulse 74 Resp 18 B/P (MAP) 108/71 (83) Pulse Ox 95 O2 Delivery Room Air Capillary Refill : Less Than 3 SecondsLess Than 3 Seconds I&O Intake and Output 04/07/19 00:00 Intake Total 1510 ml Output Total 2050 ml Balance -540 ml Intake Oral 1510 ml Output Urine Total 2050 ml # Bowel Movements 1 General: Alert, Oriented X3, Cooperative HEENT: Atraumatic, PERRLA Neck: Supple, No JVD, No Thyromegaly Lungs: Clear to Auscultation, Normal Air Movement Heart: Regular Rate, Normal S1, Normal S2, No Murmurs Abdomen: Normal Bowel Sounds, Soft, No Tenderness, No Hepatosplenomegaly, No Masses Extremities: No Clubbing, No Cyanosis, No Edema, Normal Pulses, No Tenderness/Swelling Skin: No Rashes, No Breakdown, No Significant Lesion Neuro: Normal Speech, Cranial Nerves 3-12 NL Psych/Mental Status: Mental Status NL, Mood NL A/P-Cardiology Admission Diagnosis s/p cardiac arrest STEMI CAD HTN HLP Assessment/Plan CAD, s/p cardiac arrest on 03/18/2019 with STEMI, underwent emergent cardiac catheterization done at [place] demonstrating 100% occlusion of cx, critical stenosis of LAD. Underwent Synergy [id number] stent to te mid circumflex and synergy 3.0x16mm stent to the proximal circumflex. Synergy 2.5 x20mm to mid LAD and Syncergy 2.75x 24mm to prox LAD. Currently on Plavix and ASA Cardiomyopathy, acute left ventricular systolic dysfunction secondary to acute myocardial infarction, echocardiogram showed normal left ventricular size and systolic function, ejection fraction 50-55 percent, mild hypokinesia at the apical lateral wall, PA pressure 25 mmHg. Continue to monitor Bilateral pneumothorax, s/p CT placement, resolved, chest tubes discontinued Recent pneumonia- resolved, continue to monitor. Hypertension, currently borderline hypotensive. Maintained on Coreg 3.125mg BID and Lisinopril 5mg daily. Continue to monitor. Hyperlipidemia, maintained on stating, continue to monitor. Hx of RBBB. Constipation, management per PCP Urinary retention, resolved, payton d/c'd. Tobaccoism, patient chewed tobacco. Educated on avoiding tobacco product Arthritis, management per PCP Nonobstructive carotid artery stenosis-last carotid duplex done November 2015. Continue to monitor. Strong family history of heart disease Patient was seen and evaluated with Corine, examination performed, management plan was discussed, agree with the current scribed note, I made few changes to the note using Italic font Patient was seen at bedside, sitting comfortably, denied any chest pain, reporting improvement in his symptoms. Continue on current medication and continue to monitor Clinical Quality Measures DVT/VTE Risk/Contraindication: Risk Factor Score Per Nursin RFS Level Per Nursing on Admit: 4+=Very High CORINE QUINN Apr 07, 2019 08:29 KIRIT CONTRERAS MD Apr 07, 2019 09:56
--- NOTE | 2019-04-07 09:09 | PM&R Progress Note ---
Subjective HPI/CC On Admission Date Seen by Provider: Apr 07, 2019 Time Seen by Provider: 09:15 Subjective/Events-last exam Payton discontinued and now voiding well. Bowels moving now. Had a little bit of a fall when he tried to go to the bathroom unassisted. Pt remains impulsive with fall risk. Dr. Cruz is managing systolic BP Conferred with RN. Reviewed therapy notes. Checked meds and labs. Review of Systems General: Fatigue Neurological: Confusion Objective Exam Vital Signs Vital Signs Date Time Temp Pulse Resp B/P (MAP) Pulse Ox O2 Delivery O2 Flow Rate FiO2 04/07/19 20:50 Room Air 04/07/19 17:39 87 104/67 (79) 04/07/19 17:16 36.3 16 98 Capillary Refill : Less Than 3 SecondsLess Than 3 Seconds General Appearance: No Apparent Distress, WD/WN, Chronically ill, Thin HEENT: PERRL/EOMI, Normal ENT Inspection, Pharynx Normal Neck: Full Range of Motion, Normal Inspection, Non Tender, Supple, Carotid Bruit Respiratory: Chest Non Tender, Lungs Clear, Normal Breath Sounds, No Accessory Muscle Use, No Respiratory Distress Cardiovascular: Regular Rate, Rhythm, No Edema, No Gallop, No JVD, No Murmur, Normal Peripheral Pulses Gastrointestinal: Normal Bowel Sounds, No Organomegaly, No Pulsatile Mass, Non Tender, Soft Back: Normal Inspection, No CVA Tenderness, No Vertebral Tenderness Extremity: Normal Capillary Refill, Normal Inspection, Normal Range of Motion, Non Tender, No Calf Tenderness, No Pedal Edema Neurologic/Psychiatric: Alert, Oriented x3, No Motor/Sensory Deficits, Normal Mood/Affect, Disoriented (subtle slow responses and recall), Motor Weakness (generalized all extremities, impulsive) Skin: Normal Color, Warm/Dry Lymphatic: No Adenopathy Results/Procedures Lab Patient resulted labs reviewed. FIM Transfers Therapy Code Descriptions/Definitions Functional [place] Measure: 0=Not Assessed/NA 4=Minimal Assistance 1=Total Assistance 5=Supervision or Setup 2=Maximal Assistance 6=Modified [place] 3=Moderate Assistance 7=Complete IndependenceSCALE: Activities may be completed with or without assistive devices. 2-Vmrwuiyfkp-rtpfgtg completes the activity by him/herself with no assistance from a helper. 5-Set-up or Clean-up Assistance-helper sets up or cleans up; patient completes activity. [place] assists only prior to or following the activity. 4-Supervision or Touching Assistance-helper provides verbal cues and/or touching/steadying and/or contact guard assistance as patient completes activity. Assistance may be provided throughout the activity or intermittently. 3-Partial/Moderate Assistance-helper does LESS THAN HALF the effort. [place] lifts, holds or supports trunk or limbs, but provides less than half the effort. 2-Substantial/Maximal Assistance-helper does MORE THAN HALF the effort. [place] lifts or holds trunk or limbs and provides more than half the effort. 8-Khdujxwjc-yqernt does ALL the effort. Patient does none of the effort to complete the activity. Or, the assistance of 2 or more helpers is required for the patient to complete the activity. If activity was not attempted, code reason: 7-Patient Refused. 9-Not Applicable-not attempted and the patient did not perform the activity before the current illness, exacerbation or injury. 10-Not Attempted due to Environmental Limitations-(lack of equipment, weather restraints, etc.). 88-Not Attempted due to Medical Conditions or Safety Concerns. Roll Left to Right (QC): 6 Sit to Lying (QC): 6 Sit to Stand (QC): 5 Chair/Ncn-wu-Ybtyy Xfer(QC): 5 Car Transfer (QC): 2 Gait Training Does the Patient Walk?: Yes Distance: 120'x2 Walk 10 feet (QC): 4 Walk 50 ft with 2 Turns(QC): 3 Walk 150 ft (QC): 88 Walking 10ft/uneven surface-QC: 2 (x 2 assist) Gait Persons Needed: 1 Gait Assistive Device: FWW Wheelchair Training Does the Pt Use a Wheelchair?: Yes Wheel 50 ft with 2 turns (QC): 4 Wheel 150 ft (QC): 88 Type of Wheelchair: Manual Stair Training #of Steps: 1 1 Step (curb) (QC): 2 (assist x 2 for safety) 4 Steps (QC): 88 12 Steps (QC): 88 Balance Picking up an Object (QC): 3 ADL-Treatment Oral Hygiene (QC): 4 Shower/Bathe Self (QC): 2 Upper Body Dressing (QC): 3 Lower Body Dressing (QC): 2 On/Off Footwear (QC): 3 Assessment/Plan Assessment and Plan Assess & Plan/Chief Complaint Assessment: Anoxic brain injury Cognitive deficit CAD Constipation severe Urinary retention requiring payton cath now DC Plan: IRF protocol BM regimen Cardiology appreciated Dr Gentile appreciated DC Payton (1) Anoxic brain injury (2) CAD (coronary artery disease) (3) Malnutrition (4) Urinary retention (5) Constipation (6) Payton catheter in place (7) Hypertension RENEE JARVIS DO Apr 07, 2019 09:09
[2019-04-07] MEDS: lisINopril 5 MG (PRINIVIL) TABLET PO SCH (09:10)
[2019-04-07] MEDS: ASPIRIN 81 MG CHEW (CHILDREN'S ASA) PO SCH (09:10)
[2019-04-07] MEDS: CLOPIDOGREL 75 MG (PLAVIX) TABLET PO SCH (09:10)
[2019-04-07] MEDS: SENNA W/DOCUSATE (SENOKOT S) TABLET PO SCH ×2 (09:11→20:43)
[2019-04-07] MEDS: LACTULOSE SYRUP 10GM/15ML (ENULOSE) 30ML UDC PO SCH ×2 (09:11→20:47)
[2019-04-07] MEDS: DOCUSATE SODIUM 100 MG (COLACE) CAP PO SCH ×2 (09:11→20:43)
[2019-04-07] MEDS: FLUTICASONE NASAL SPRAY (FLONASE) 16 GM BTL NS SCH (09:11)
[2019-04-07] MEDS: BISACODYL 10 MG SUPP (DULCOLAX) PR SCH (09:12)
--- NOTE | 2019-04-07 09:16 | Occupational Ther Daily Note ---
OT Current Status-Daily Note Subjective Pt laying in bed with present, he agreed to OT tx with focus on ADLs. He did not report any pain during session. ADL-Treatment Therapy Code Descriptions/Definitions Functional [place] Measure: 0=Not Assessed/NA 4=Minimal Assistance 1=Total Assistance 5=Supervision or Setup 2=Maximal Assistance 6=Modified [place] 3=Moderate Assistance 7=Complete IndependenceSCALE: Activities may be completed with or without assistive devices. 8-Mlevjzqbky-nrfgkxc completes the activity by him/herself with no assistance from a helper. 5-Set-up or Clean-up Assistance-helper sets up or cleans up; patient completes activity. [place] assists only prior to or following the activity. 4-Supervision or Touching Assistance-helper provides verbal cues and/or touching/steadying and/or contact guard assistance as patient completes activit y. Assistance may be provided throughout the activity or intermittently. 3-Partial/Moderate Assistance-helper does LESS THAN HALF the effort. [place] lifts, holds or supports trunk or limbs, but provides less than half the effort. 2-Substantial/Maximal Assistance-helper does MORE THAN HALF the effort. [place] lifts or holds trunk or limbs and provides more than half the effort. 7-Zhpfrwkje-enlgmg does ALL the effort. Patient does none of the effort to complete the activity. Or, the assistance of 2 or more helpers is required for the patient to complete the activity. If activity was not attempted, code reason: 7-Patient Refused. 9-Not Applicable-not attempted and the patient did not perform the activity before the current illness, exacerbation or injury. 10-Not Attempted due to Environmental Limitations-(lack of equipment, weather restraints, etc.). 88-Not Attempted due to Medical Conditions or Safety Concerns. Oral Hygiene (QC): 4 (Pt completed grooming tasks sitting at sink, he required assistance squeezing toothpaste onto toothbrush, and brushed his hair with min A) Shower/Bathe Self (QC): 2 (Pt required assistance to maintain sitting balance during task. He required max A with LB due to thoroughness of task, and he dropped soap/wash cloth mulitple times. He was able to wash UEs and chest/abdomen. OT assisted with washing his back.) Upper Body Dressing (QC): 3 (Pt able to doff shirt with out assistance, required min A to don with assistance pulling shirt down in the back.) Lower Body Dressing (QC): 2 (Pt required Min A standing balance with stance at grab bars. He was able to thread BLEs into underwear, but required assist with threading pants, and he required total assist with closures.) On/Off Footwear: 2 (Pt required total assist to take socks off due to decreased sitting balance on SC. He was able to don socks seated in w/c with CGA for sitting balance.) Toileting Hygiene (QC): 7 (Pt declined need to toilet at this time.) Other Treatment Pt transferred supine to sit EOB with SBA. He then transferred from bed to / using FWW with CGA. He transferred to bathroom via w/c, and used GBs with CGA to transfer to the shower chair. He completed bathing and dressing, then transferred back to the w/ using GBs with CGA. He completed grooming tasks seated at sink, then donned socks. Pt then self propelled w/c to therapy area with skilled cues for UE placement, where he completed arm bike x10 mins in order to increase bilateral integration, UE strength, and functional endurance. Pt required cues during tasks to focus on LUE due to his hand slipping off the handle throughout task, once pt given verbal cue he was able to hold hand on handle. Pt required multiple rest breaks during task. Pt then self propelled w/c back to his room, transferring from w/c to bed using FWW and CGA. Pt transferred sitting EOB to supine with SBA. Post OT session, pt laying in bed, call light in reach and all needs met. Education OT Patient Education: Correct positioning, Energy conservation, Exercise program, Modified ADL techniques, Progress toward Goal/Update tx plan, Safety issues, Transfer techniques Teaching Recipient: Patient Teaching Methods: Discussion Response to Teaching: Verbalize Understanding, Reinforcement Needed OT Short Term Goals Short Term Goals Time Frame: Apr 11, 2019 Eatin Oral hygiene: 4 Toileting hygiene: 3 Shower/bathe self: 3 Upper body dressin Lower body dressin Putting on/taking off footwear: 4 OT Yacht Rigger Goals Custodial Goals Time Frame: Apr 25, 2019 Eating (QC): 6 Oral Hygiene (QC): 5 Toileting Hygiene (QC): 6 Shower/Bathe Self (QC): 4 Upper Body Dressing (QC): 4 Lower Body Dressing (QC): 4 On/Off Footwear (QC): 4 Additional Goals: 1-Demonstrate ADL Tasks, 2-Verbalize Understanding, 3- ImproveStrength/[place] 1=Demonstrate adherence to instructed precautions during ADL tasks. 2=Patient will verbalize/demonstrate understanding of assistive devices/modifications for ADL. 3=Patient will improve strength/tolerance for activity to enable patient to perform ADL's. OT Education/Plan Problem List/Assessment Assessment: Decreased Activ Tolerance, Decreased UE Strength, Impaired Coordination, Impaired Funct Balance, Impaired I ADL's, Impaired Self-Care Skills Discharge Recommendations Plan/Recommendations: Continue POC Treatment Plan/Plan of Care Treatment,Training & Education: Yes Patient would benefit from OT for education, treatment and training to promote independence in ADL's, mobility, safety and/or upper extremity function for ADL's. Plan of Care: ADL Retraining, Caregiver Training, Functional Mobility, Group Exercise/Act as Ind, UE Funct Exercise/Act Treatment Duration: Apr 25, 2019 Frequency: At least 5 of 7 days/Wk (IRF) Estimated Hrs Per Day: 1.5 hours per day Agreement: Yes Rehab Potential: Fair Time/GCodes Start Time: 08:00 Stop Time: 09:00 Total Time Billed (hr/min): 60 Billed Treatment Time 1, ADL 3 (45'), EX (15') CHRISTINE LOW OT Apr 07, 2019 09:16
--- NOTE | 2019-04-07 10:16 | Progress Note - Urology ---
Progress Note-Urology Progress Notes/Assess & Plan Progress/Assessment & Plan VOIDED WELL. NO COMPLAINTS. CHECK PVR Final Diagnosis URINE RETENTION EDMUNDO DICK MD Apr 07, 2019 10:16
--- NOTE | 2019-04-07 10:20 | Speech Therapy Daily Note ---
Speech Daily Progress Note Subjective Date Seen by Provider: Apr 07, 2019 Time Seen by Provider: 09:30 Patient was alert, pleasant, and cooperative for all therapy tasks. Patients was present for all therapy tasks. Patient sat upright in his bed for the duration of treatment. Objective Patient completed memory tasks pertaining to family events and important dates with 80% accuracy and moderate cues. Assessment Assessment Current Status: Good Progress Treatment Plan Continue Plan of Care Speech Short Term Goals Short Term Goals Short Term Goals 1) Patient will complete memory exercises related to his daily living skills with 80% or greater. 2) Patient will complete safety awareness exercises related to his daily living skills with 80% or greater. 3) Patient will complete problem solving exercises related to his daily living skills with 80% or greater. 4) Patient will complete speech production exercises at 80% or greater with minimal cues. Speech Shelter Goals Shelter Goals Patient will improve cognitive-communication and speech exercises necessary for safety and daily living tasks with minimal assist and effective communication. Speech-Plan Patient/Family Goals Patient/Family Goals: Patient reports that he would like to return home to previous level of mobility and independence. Treatment Plan Speech Therapy Treatment Plan: Continue Plan of Care Treatment Duration: Apr 15, 2019 Frequency: 5 times per week Estimated Hrs Per Day: .5 hour per day Rehab Potential: Fair Barriers to Learning: Moderate cognitive deficits Pt/Family Agrees to Plan: Yes Safety Risks/Education Teaching Recipient: Patient Teaching Methods: Demonstration, Discussion Response to Teaching: Verbalize Understanding Education Topics Provided: Utilization of memory strategies to improve recall of important information. Time Speech Therapy Time In: 09:30 Speech Therapy Time Out: 10:00 Total Billed Time: 30 Billed Treatment Time ABEBE [place] [address] Apr 07, 2019 10:20
--- NOTE | 2019-04-07 10:55 | Physical Therapy Daily Note ---
PT Daily Note-Current Subjective Patient in bed pre tx, agrees to PT, has no complaints of pain. Appearance Patient in bed post tx with nurse call, phone, tray, all needs met. in room. Mental Status Patient Orientation: Person, Place, Situation Transfers SCALE: Activities may be completed with or without assistive devices. 0-Abnkioslvs-mopwqfb completes the activity by him/herself with no assistance from a helper. 5-Set-up or Clean-up Assistance-helper sets up or cleans up; patient completes activity. [place] assists only prior to or following the activity. 4-Supervision or Touching Assistance-helper provides verbal cues and/or touching/steadying and/or contact guard assistance as patient completes activity. Assistance may be provided throughout the activity or intermittently. 3-Partial/Moderate Assistance-helper does LESS THAN HALF the effort. [place] lifts, holds or supports trunk or limbs, but provides less than half the effort. 2-Substantial/Maximal Assistance-helper does MORE THAN HALF the effort. [place] lifts or holds trunk or limbs and provides more than half the effort. 5-Hplvwwdvy-cthzsu does ALL the effort. Patient does none of the effort to complete the activity. Or, the assistance of 2 or more helpers is required for the patient to complete the activity. If activity was not attempted, code reason: 7-Patient Refused. 9-Not Applicable-not attempted and the patient did not perform the activity before the current illness, exacerbation or injury. 10-Not Attempted due to Environmental Limitations-(lack of equipment, weather restraints, etc.). 88-Not Attempted due to Medical Conditions or Safety Concerns. Roll Left & Right (QC): 6 Sit to Lying (QC): 6 Lying to Sitting/Side of Bed(Q: 6 Sit to Stand (QC): 4 Chair/Kpw-ox-Cyzwf Xfer(QC): 4 Weight Bearing Right Lower Extremity: Right Full Weight Bearing Left Lower Extremity: Left Full Weight Bearing Gait Training Distance: 200', 120' Walk 10 feet (QC): 3 Walk 50 ft with 2 Turns(QC): 3 Walk 150 ft (QC): 3 Gait Assistive Device: FWW Needs cues to slow down, take careful steps, controlled steps. Needs min assist with balance. Exercises LAQ alternating for 5 min with 2# ankle weights, sit to stand 3 sets of 10 NuStep Minutes: 15 NuStep Workload: 4 Treatments ambulation, LE strengthening, transfers Assessment Current Status: Fair Progress Patient needs many rest breaks on NuStep due to fatigue. Patient is somewhat impulsive, moves quickly and has poor balance, needs cues for safety. PT Snf Goals Lisw Goals PT Snf Goals Time Frame: May 07, 2019 Roll Left & Right (QC): 6 Sit to Lying (QC): 6 Lying-Sitting on Side/Bed(QC): 6 Sit to Stand (QC): 5 Chair/Ikp-wn-Rjccz Xfer(QC): 5 Toilet Transfer (QC): 5 Car Transfer (QC): 5 Does the Patient Walk: Yes Walk 10 feet (QC): 6 Walk 50ft with 2 Turns (QC): 6 Walk 150 ft (QC): 6 Walking 10ft on Uneven Surface: 6 1 Step (curb) (QC): 6 4 Steps (QC): 6 12 Steps (QC): 6 Picking up an Object (QC): 6 PT Plan Problem List Problem List: Activity Tolerance, Functional Strength, Safety, Balance, Gait, Transfer Treatment/Plan Treatment Plan: Continue Plan of Care Treatment Plan: Bed Mobility, Concurrent Therapy, Education, Functional Activity [place], Functional Strength, Group Therapy, Gait, Safety, Therapeutic Exercise, Transfers Treatment Duration: May 07, 2019 Frequency: At least 5 of 7 days/Wk (IRF) Estimated Hrs Per Day: 1.5 hours per day Patient and/or Family Agrees t: Yes Safety Risks/Education Patient Education: Gait Training, Transfer Techniques, Correct Positioning, Safety Issues Teaching Recipient: Patient Teaching Methods: Demonstration, Discussion Response to Teaching: Reinforcement Needed Time/GCodes Time In: 1000 Time Out: 1100 Total Billed Treatment Time: 60 Total Billed Treatment 1 visit GT 20' EX 30' FA 10' STEW CRAIG PT Apr 07, 2019 10:55
--- NOTE | 2019-04-07 11:55 | NUR ---
HEARD SAY "ARE YOU OKAY?" FOUND PATIENT LYING ON THE FLOOR. STATES HE HAD TRIED TO AWAKEN AT BEDSIDE, BUT SHE WOULD NOT WAKE UP AND HE BECAME CONCERNED ABOUT HER SO HE GOT UP UNASSISTED AND WITHOUT ASKING NURSE FOR HELP - TO CHECK ON HER. HE DID USE WALKER. PATIENT WAS FOUND LYING ON HIS BACK. DENIED INJURY AND NO DELGADO NOTED ON BODY. ASSISTED BACK TO BED. HAS BEEN ALERT AND ORIENTED, BUT WILL UTILIZE BED EXIT ALARM NOW DUE TO PATIENT'S IMPULSIVENESS. 4 RAILS UP AND FREQUENT REMINDERS WILL BE GIVEN TO ASK NURSE FOR HELP. HAS STAYED BY BEDSIDE ALL DAY AND TENDS TO DO EVERYTHING FOR PATIENT. ENCOURAGED HER TO LET PATIENT HELP SELF MORE.
--- NOTE | 2019-04-07 14:08 | NUR ---
CM/SS WEEKLY TEAM CONFERENCE SUMMARY Presented Summary to patient and his spouse. They are in agreement for his continued stay with next review 04/13/19. Goal continues to be for patient to return home as before, overall deficits not yet determined.
--- NOTE | 2019-04-07 14:15 | NUR ---
LEFT SIDE WOUND FROM PREVIOUS SITE OF CHEST TUBE IS FIRM AROUND SITE, IRRITATED AND RED. LIBBY, WOUND NURSE CALLED TO CHECK SITE. ORDERS RECEIVED.
--- NOTE | 2019-04-07 14:30 | NUR ---
DR. DICK NOTIFIED BY TEXT THAT PATIENT HAS NOT VOIDED SINCE 0800. THAT HE HAS BEEN ASSISTED UP TO TOILET, BUT UNABLE TO VOID. BLADDER SCAN SHOWS 400 CC.
--- NOTE | 2019-04-07 15:04 | Therapy Group Daily Note ---
Therapy Daily Group Note Patient Education Topic Other List Below (Handwashing & AD for walker) Exercises LE Seated Exercise, UE Exercise Session Ratio (pt:therapist): 3:1 Goal of Session: Home Safety Strategies, Memory Strategies, UE/LE Strengthing, Safety with Transfers, Use of Adaptive Equipment Goal Met for this Session: Yes Pt Benefit of Group: Contributions to Others, F/U Use of Strategies @Home, Increased Functional Safety, Increased Functional Strength, Improved Cognition, Recognition of Peers, Socialization Other/Notes Pt needed encouragement to participate and leave room for Group. Pt ambulated using FWW to [facility] for OT/PT group. Group consisted of introductions (name, place living, favorite childhood food), socialization, peer lead UE/LE seated exercises, educational topics of handwashing and AD for walkers. Pt introduced self appropriately and actively listened to peers. Pt was able to read exercise card and lead group in one exercise then completed other exercises that was lead by peers. Pt acknowledged understanding of educational topics by giving own strategies and personal stories on each topic. After group, pt ambulated back to room and laid Supine in bed. Call light and phone placed in reach. All needs met. Start Time: 13:00 Stop Time: 14:00 Total Billed Treatment Time: 60 Total Billed Treatment 1, GRP (60m) SHILPA MICHAUD PTA Apr 07, 2019 15:04
[2019-04-07] MEDS: ACETAMINOPHEN 325 MG TABLET PO PRN (15:24)
--- NOTE | 2019-04-07 16:30 | NUR ---
AFTER TEXTING AND CALLING DR. DICK SEVERAL TIMES, HE WAS CALLED AT OFFICE ABOUT PATIENT BEING UNABLE TO VOID. ORDER RECEIVE TO STRAIGHT CATH PATIENT NOW AND HAD 400 CC URINE RETURN. ALSO WILL INCREASE FLOMAX TO BID AND BLADDER SCAN PRN WITH ORDER TO STRAIGHT CATH > 400 CC.
[2019-04-07 17:16] VITALS: BP 99/65
[2019-04-07 17:39] VITALS: BP 104/67
--- NOTE | 2019-04-07 19:04 | NUR ---
bedside report received from LAZARO ALEXANDER, assume care of pt
[2019-04-07] MEDS: ENOXAPARIN 40 MG/0.4 ML (LOVENOX) SYR SC SCH (20:41)
[2019-04-07] MEDS: TAMSULOSIN 0.4 MG (FLOMAX) CAP PO SCH (20:43)
--- NOTE | 2019-04-07 20:43 | NUR ---
pt took Colace & Senokot, refused miralax & Enulose, at bedside, side rails up x4, bed alarm on
[2019-04-07] MEDS: polyethylene glycoL POWDER 17 GM (MIRALAX) PACK PO SCH (20:48)
--- NOTE | 2019-04-08 00:35 | NUR ---
voided 900ml urine
--- NOTE | 2019-04-08 00:50 | NUR ---
bladder scan showed 7ml
--- NOTE | 2019-04-08 04:00 | NUR ---
up to bathroom voided 400ml clear straw colored urine, c/o lt sided pain
[2019-04-08] MEDS: ACETAMINOPHEN 325 MG TABLET PO PRN (04:13)
--- NOTE | 2019-04-08 04:13 | NUR ---
tylenol 650mg given for lt sided pain level 6/10 on numeric scale, bladder scan showed 0 ml
--- NOTE | 2019-04-08 05:00 | NUR ---
resting quietly in bed, pain level 0/10 on cnpi scale
[2019-04-08 05:05] VITALS: BP 105/68
--- NOTE | 2019-04-08 05:56 | PM&R Progress Note ---
Subjective HPI/CC On Admission Date Seen by Provider: Apr 08, 2019 Time Seen by Provider: 06:00 Subjective/Events-last exam Pt had a fall yesterday His was in the room sleeping and she did not hear him call out so he got up to go to the bathroom and fell without injury Left chest wound is managed by wound care and he does have some pain so will initiate a bit of narcotic because the Tylenol doesn't seem to be working well Voiding pretty well since catheter removed and Flomax maintained Conferred with RN. Reviewed therapy notes. Checked meds and labs. Review of Systems General: Fatigue Neurological: Weakness, Incoordination, Confusion Objective Exam Vital Signs Vital Signs Date Time Temp Pulse Resp B/P (MAP) Pulse Ox O2 Delivery O2 Flow Rate FiO2 04/08/19 09:00 94 Room Air 04/08/19 05:05 36.6 77 18 105/68 (80) Capillary Refill : Less Than 3 SecondsLess Than 3 Seconds General Appearance: No Apparent Distress, WD/WN, Chronically ill, Thin HEENT: PERRL/EOMI, Normal ENT Inspection, Pharynx Normal Neck: Full Range of Motion, Normal Inspection, Non Tender, Supple, Carotid Bruit Respiratory: Chest Non Tender, Lungs Clear, Normal Breath Sounds, No Accessory Muscle Use, No Respiratory Distress Cardiovascular: Regular Rate, Rhythm, No Edema, No Gallop, No JVD, No Murmur, Normal Peripheral Pulses Gastrointestinal: Normal Bowel Sounds, No Organomegaly, No Pulsatile Mass, Non Tender, Soft Back: Normal Inspection, No CVA Tenderness, No Vertebral Tenderness Extremity: Normal Capillary Refill, Normal Inspection, Normal Range of Motion, Non Tender, No Calf Tenderness, No Pedal Edema Neurologic/Psychiatric: Alert, Oriented x3, No Motor/Sensory Deficits, Normal Mood/Affect, Disoriented (subtle slow responses and recall), Motor Weakness (g eneralized all extremities, impulsive) Skin: Normal Color, Warm/Dry Lymphatic: No Adenopathy Results/Procedures Lab Patient resulted labs reviewed. FIM Transfers Therapy Code Descriptions/Definitions Functional [place] Measure: 0=Not Assessed/NA 4=Minimal Assistance 1=Total Assistance 5=Supervision or Setup 2=Maximal Assistance 6=Modified [place] 3=Moderate Assistance 7=Complete IndependenceSCALE: Activities may be completed with or without assistive devices. 3-Epyqbvlzcx-pwnmjwn completes the activity by him/herself with no assistance from a helper. 5-Set-up or Clean-up Assistance-helper sets up or cleans up; patient completes activity. [place] assists only prior to or following the activity. 4-Supervision or Touching Assistance-helper provides verbal cues and/or touching/steadying and/or contact guard assistance as patient completes activity. Assistance may be provided throughout the activity or intermittently. 3-Partial/Moderate Assistance-helper does LESS THAN HALF the effort. [place] lifts, holds or supports trunk or limbs, but provides less than half the effort. 2-Substantial/Maximal Assistance-helper does MORE THAN HALF the effort. [place] lifts or holds trunk or limbs and provides more than half the effort. 5-Xjyalptux-iithov does ALL the effort. Patient does none of the effort to com plete the activity. Or, the assistance of 2 or more helpers is required for the patient to complete the activity. If activity was not attempted, code reason: 7-Patient Refused. 9-Not Applicable-not attempted and the patient did not perform the activity before the current illness, exacerbation or injury. 10-Not Attempted due to Environmental Limitations-(lack of equipment, weather restraints, etc.). 88-Not Attempted due to Medical Conditions or Safety Concerns. Roll Left to Right (QC): 6 Sit to Lying (QC): 6 Sit to Stand (QC): 4 Chair/Xva-mv-Bwlqu Xfer(QC): 4 Car Transfer (QC): 2 Gait Training Does the Patient Walk?: Yes Distance: 200', 120' Walk 10 feet (QC): 3 Walk 50 ft with 2 Turns(QC): 3 Walk 150 ft (QC): 3 Walking 10ft/uneven surface-QC: 2 (x 2 assist) Gait Persons Needed: 1 Gait Assistive Device: FWW Wheelchair Training Does the Pt Use a Wheelchair?: Yes Wheel 50 ft with 2 turns (QC): 4 Wheel 150 ft (QC): 88 Type of Wheelchair: Manual Stair Training #of Steps: 1 1 Step (curb) (QC): 2 (assist x 2 for safety) 4 Steps (QC): 88 12 Steps (QC): 88 Balance Picking up an Object (QC): 3 ADL-Treatment Oral Hygiene (QC): 4 (Pt completed grooming tasks sitting at sink, he required assistance squeezing toothpaste onto toothbrush, and brushed his hair with min A) Shower/Bathe Self (QC): 2 (Pt required assistance to maintain sitting balance during task. He required max A with LB due to thoroughness of task, and he dropped soap/wash cloth mulitple times. He was able to wash UEs and chest/abdomen. OT assisted with washing his back.) Upper Body Dressing (QC): 3 (Pt able to doff shirt with out assistance, required min A to don with assistance pulling shirt down in the back.) Lower Body Dressing (QC): 2 (Pt required Min A standing balance with stance at grab bars. He was able to thread BLEs into underwear, but required assist with threading pants, and he required total assist with closures.) On/Off Footwear (QC): 2 (Pt required total assist to take socks off due to decreased sitting balance on SC. He was able to don socks seated in w/c with CGA for sitting balance.) Toileting Hygiene (QC): 7 (Pt declined need to toilet at this time.) Assessment/Plan Assessment and Plan Assess & Plan/Chief Complaint Assessment: Anoxic brain injury Cognitive deficit CAD Constipation severe Urinary retention requiring payton cath now DC Fall to bathroom Plan: IRF protocol BM regimen Cardiology appreciated Dr Gentile appreciated DC Pay[place] (1) Anoxic brain injury (2) CAD (coronary artery disease) (3) Malnutrition (4) Urinary retention (5) Constipation (6) Payton catheter in place (7) Hypertension RENEE JARVIS DO Apr 08, 2019 05:56
[2019-04-08] MEDS: CARVEDILOL 3.125 MG (COREG) TABLET PO SCH ×2 (06:43→17:54)
--- NOTE | 2019-04-08 06:45 | NUR ---
notified of pt request for something stronger than TYLENOL, orders received for HYDROCODONE 5mg 1 tab q 4hrs prn
[2019-04-08] MEDS ORDERED: HYDROcodone/APAP 5 MG/325 MG (LORTAB) TAB ONE (06:58)
--- NOTE | 2019-04-08 07:03 | NUR ---
HYDROCODONE 5mg 1 tab given for rt sides chest pain, level 5/10 on numeric scale
[2019-04-08] MEDS: HYDROcodone/APAP 5 MG/325 MG (LORTAB) TAB PO PRN ×2 (07:04→19:02)
[2019-04-08] MEDS: lisINopril 5 MG (PRINIVIL) TABLET PO SCH (08:52)
[2019-04-08] MEDS: TAMSULOSIN 0.4 MG (FLOMAX) CAP PO SCH ×2 (08:52→20:07)
[2019-04-08] MEDS: CLOPIDOGREL 75 MG (PLAVIX) TABLET PO SCH (08:52)
[2019-04-08] MEDS: SENNA W/DOCUSATE (SENOKOT S) TABLET PO SCH ×2 (08:52→20:19)
[2019-04-08] MEDS: DOCUSATE SODIUM 100 MG (COLACE) CAP PO SCH ×2 (08:52→20:19)
[2019-04-08] MEDS: ASPIRIN 81 MG CHEW (CHILDREN'S ASA) PO SCH (08:52)
[2019-04-08] MEDS: LACTULOSE SYRUP 10GM/15ML (ENULOSE) 30ML UDC PO SCH ×2 (08:53→20:19)
[2019-04-08] MEDS: FLUTICASONE NASAL SPRAY (FLONASE) 16 GM BTL NS SCH (08:54)
--- NOTE | 2019-04-08 09:36 | Progress Note - Urology ---
Progress Note-Urology Progress Notes/Assess & Plan Progress/Assessment & Plan VOIDING AND EMPTYING BETTER. TOLERATES FLOMAX BID Final Diagnosis URINE RETENTION EDMUNDO DICK MD Apr 08, 2019 09:36
[2019-04-08] MEDS: BISACODYL 10 MG SUPP (DULCOLAX) PR SCH (09:57)
--- NOTE | 2019-04-08 10:48 | Speech Therapy Daily Note ---
Speech Daily Progress Note Subjective Date Seen by Provider: Apr 08, 2019 Time Seen by Provider: 09:15 Patient was alert, pleasant, and cooperative for all therapy tasks. Patient reported that he was feeling slightly sore from his fall yesterday. Patient sat upright in his bed for the duration of treatment. Objective Patient completed safety awareness tasks pertaining to fall risk and home environment with 75% accuracy and moderate cues. Assessment Assessment Current Status: Good Progress Treatment Plan Continue Plan of Care Speech Short Term Goals Short Term Goals Short Term Goals 1) Patient will complete memory exercises related to his daily living skills with 80% or greater. 2) Patient will complete safety awareness exercises related to his daily living skills with 80% or greater. 3) Patient will complete problem solving exercises related to his daily living skills with 80% or greater. 4) Patient will complete speech production exercises at 80% or greater with minimal cues. Speech Junior Network Administrator Goals Junior Network Administrator Goals Patient will improve cognitive-communication and speech exercises necessary for safety and daily living tasks with minimal assist and effective communication. Speech-Plan Patient/Family Goals Patient/Family Goals: Patient reports that he would like to return home to previous level of independence and mobility. Treatment Plan Speech Therapy Treatment Plan: Continue Plan of Care Treatment Duration: Apr 15, 2019 Frequency: 5 times per week Estimated Hrs Per Day: .5 hour per day Rehab Potential: Fair Barriers to Learning: Moderate cognitive deficits Pt/Family Agrees to Plan: Yes Safety Risks/Education Teaching Recipient: Patient Teaching Methods: Demonstration, Discussion Response to Teaching: Verbalize Understanding, Return Demonstration Education Topics Provided: Utilization of safety awareness strategies in both the hospital room and at home. Time Speech Therapy Time In: 09:15 Speech Therapy Time Out: 09:45 Total Billed Time: 30 Billed Treatment Time [address] Apr 08, 2019 10:48
--- NOTE | 2019-04-08 11:02 | Physical Therapy Daily Note ---
PT Daily Note-Current Subjective Patient in bed pre tx, agrees to PT, has slight pain in his left side where he says they drained his abdomen or lungs. Appearance Patient in bed post tx with nurse call, phone, tray, all needs met, bed alarm on. Mental Status Patient Orientation: Person, Place, Situation Transfers SCALE: Activities may be completed with or without assistive devices. 4-Jiwysekacb-hlfxgvc completes the activity by him/herself with no assistance from a helper. 5-Set-up or Clean-up Assistance-helper sets up or cleans up; patient completes activity. [place] assists only prior to or following the activity. 4-Supervision or Touching Assistance-helper provides verbal cues and/or touching/steadying and/or contact guard assistance as patient completes activity. Assistance may be provided throughout the activity or intermittently. 3-Partial/Moderate Assistance-helper does LESS THAN HALF the effort. [place] lifts, holds or supports trunk or limbs, but provides less than half the effort. 2-Substantial/Maximal Assistance-helper does MORE THAN HALF the effort. [place] lifts or holds trunk or limbs and provides more than half the effort. 2-Ihibgwofa-vygavr does ALL the effort. Patient does none of the effort to complete the activity. Or, the assistance of 2 or more helpers is required for the patient to complete the activity. If activity was not attempted, code reason: 7-Patient Refused. 9-Not Applicable-not attempted and the patient did not perform the activity before the current illness, exacerbation or injury. 10-Not Attempted due to Environmental Limitations-(lack of equipment, weather restraints, etc.). 88-Not Attempted due to Medical Conditions or Safety Concerns. Roll Left & Right (QC): 6 Sit to Lying (QC): 6 Lying to Sitting/Side of Bed(Q: 6 Sit to Stand (QC): 4 Chair/Tnb-me-Rfepi Xfer(QC): 3 CGA for sit to stand, min assist for transfers due to assist with balance. Patient needs occasional cues for hand placement and safety. Weight Bearing Right Lower Extremity: Right Full Weight Bearing Left Lower Extremity: Left Full Weight Bearing Gait Training Distance: 200'x2 Walk 10 feet (QC): 3 Walk 50 ft with 2 Turns(QC): 3 Walk 150 ft (QC): 3 Gait Assistive Device: FWW Satya for balance, needs cues for slow, controlled steps Exercises Supine Ex: Bridging, Ankle pumps, Quad Set, Glut sets, Heel Slides, Short Arc Q uads, Straight leg raise, Hip abd/add Supine Reps: 20 Standing: Heel/toe raises, Mini squats Standing Reps: 20 LAQ alternating for 5 min with 2# ankle weights, sit to stand 3 sets of 10 NuStep Minutes: 15 NuStep Workload: 4 Treatments bed mobility and transfers, ambulation, LE strengthening Assessment Current Status: Fair Progress Patient still needs cues for slow, controlled movement, can still be impulsive PT Senior Living Goals Casting Room Helper Goals PT Senior Living Goals Time Frame: May 07, 2019 Roll Left & Right (QC): 6 Sit to Lying (QC): 6 Lying-Sitting on Side/Bed(QC): 6 Sit to Stand (QC): 5 Chair/Zir-sa-Vxewo Xfer(QC): 5 Toilet Transfer (QC): 5 Car Transfer (QC): 5 Does the Patient Walk: Yes Walk 10 feet (QC): 6 Walk 50ft with 2 Turns (QC): 6 Walk 150 ft (QC): 6 Walking 10ft on Uneven Surface: 6 1 Step (curb) (QC): 6 4 Steps (QC): 6 12 Steps (QC): 6 Picking up an Object (QC): 6 PT Plan Problem List Problem List: Activity Tolerance, Functional Strength, Safety, Balance, Gait, Transfer, Bed Mobility Treatment/Plan Treatment Plan: Continue Plan of Care Treatment Plan: Bed Mobility, Concurrent Therapy, Education, Functional Activity [place], Functional Strength, Group Therapy, Gait, Safety, Therapeutic Exercise, Transfers Treatment Duration: May 07, 2019 Frequency: At least 5 of 7 days/Wk (IRF) Estimated Hrs Per Day: 1.5 hours per day Patient and/or Family Agrees t: Yes Safety Risks/Education Patient Education: Gait Training, Transfer Techniques, Correct Positioning, Safety Issues Teaching Recipient: Patient Teaching Methods: Demonstration, Discussion Response to Teaching: Reinforcement Needed Time/GCodes Time In: 0950 Time Out: 1105 Total Billed Treatment Time: 75 Total Billed Treatment 1 visit GT 15' EX 60' STEW CRAIG PT Apr 08, 2019 11:02
--- NOTE | 2019-04-08 11:02 | Occupational Ther Daily Note ---
OT Current Status-Daily Note Subjective Pt agreeable to treatment this am. Reports fatigue. ADL-Treatment Supine to sit with SBA. Pt transferred to w/c with CGA using FWW. Pt declined bathing or dressing. Completed grooming tasks with set up while seated at sink. Combed hair and wash face. Therapy Code Descriptions/Definitions Functional [place] Measure: 0=Not Assessed/NA 4=Minimal Assistance 1=Total Assistance 5=Supervision or Setup 2=Maximal Assistance 6=Modified [place] 3=Moderate Assistance 7=Complete IndependenceSCALE: Activities may be completed with or without assistive devices. 7-Czsexqdpju-xaitsad completes the activity by him/herself with no assistance from a helper. 5-Set-up or Clean-up Assistance-helper sets up or cleans up; patient completes activity. [place] assists only prior to or following the activity. 4-Supervision or Touching Assistance-helper provides verbal cues and/or touching/steadying and/or contact guard assistance as patient completes activi ty. Assistance may be provided throughout the activity or intermittently. 3-Partial/Moderate Assistance-helper does LESS THAN HALF the effort. [place] lifts, holds or supports trunk or limbs, but provides less than half the effort. 2-Substantial/Maximal Assistance-helper does MORE THAN HALF the effort. [place] lifts or holds trunk or limbs and provides more than half the effort. 9-Nghycdflc-syhfbl does ALL the effort. Patient does none of the effort to complete the activity. Or, the assistance of 2 or more helpers is required for the patient to complete the activity. If activity was not attempted, code reason: 7-Patient Refused. 9-Not Applicable-not attempted and the patient did not perform the activity before the current illness, exacerbation or injury. 10-Not Attempted due to Environmental Limitations-(lack of equipment, weather restraints, etc.). 88-Not Attempted due to Medical Conditions or Safety Concerns. Other Treatment To therapy gym via w/c. Pt completed fine motor task with nuts and bolts to promote bilateral UE coordination and activity tolerance. Pt has decreased coordination and occasionally drops with left hand, but is able to complete task with increased time. Occasional rest breaks. Graded clothespins task with bilateral hands to increase strength. Pt has mild difficulty with left hand. Arm bike x5 minutes to increase overall strength and activity tolerance needed for functional task completion. Pt took 3 rest breaks during task. Resistance pegs activity with bilateral hands to increase reaching and coordination/manipulation skills. Pt completed task with increased time. Pt returned to room, transferred to bed with CGA. Sit to supine with SBA. Pt resting in bed with needs met, bed alarm on, and spouse present after session. OT Short Term Goals Short Term Goals Time Frame: Apr 11, 2019 Eatin Oral hygiene: 4 Toileting hygiene: 3 Shower/bathe self: 3 Upper body dressin Lower body dressin Putting on/taking off footwear: 4 OT Longterm Goals Longterm Goals Time Frame: Apr 25, 2019 Eating (QC): 6 Oral Hygiene (QC): 5 Toileting Hygiene (QC): 6 Shower/Bathe Self (QC): 4 Upper Body Dressing (QC): 4 Lower Body Dressing (QC): 4 On/Off Footwear (QC): 4 Additional Goals: 1-Demonstrate ADL Tasks, 2-Verbalize Understanding, 3- ImproveStrength/[place] 1=Demonstrate adherence to instructed precautions during ADL tasks. 2=Patient will verbalize/demonstrate understanding of assistive devices/modifications for ADL. 3=Patient will improve strength/tolerance for activity to enable patient to perform ADL's. OT Education/Plan Discharge Recommendations Plan/Recommendations: Continue POC Treatment Plan/Plan of Care Patient would benefit from OT for education, treatment and training to promote independence in ADL's, mobility, safety and/or upper extremity function for ADL's. Plan of Care: ADL Retraining, Caregiver Training, Functional Mobility, Group Exercise/Act as Ind, UE Funct Exercise/Act Treatment Duration: Apr 25, 2019 Frequency: At least 5 of 7 days/Wk (IRF) Estimated Hrs Per Day: 1.5 hours per day Agreement: Yes Rehab Potential: Fair Time/GCodes Start Time: 08:00 Stop Time: 09:15 Total Time Billed (hr/min): 75 Billed Treatment Time 1 visit, ADL(15minutes), FAx2(30minutes), EXx2(30minutes) BOB GOMEZ OT Apr 08, 2019 11:02
[2019-04-08 18:00] VITALS: BP 105/78
[2019-04-08] MEDS: ENOXAPARIN 40 MG/0.4 ML (LOVENOX) SYR SC SCH (20:10)
[2019-04-08] MEDS: polyethylene glycoL POWDER 17 GM (MIRALAX) PACK PO SCH (20:19)
--- NOTE | 2019-04-08 21:00 | NUR ---
STATES LEFT SIDE WOUND PAIN IMPROVED AFTER LORTAB. AT BEDSIDE AND BED EXIT ALARM ON. MILD CONFUSION TO TIME. STATES 3 LOOSE STOOLS TODAY AND STOMACH IS "STILL RUMBLING". DENIED NEED FOR ANY PRN MEDS. STATES VOIDING WITHOUT DIFFICULTY.
--- NOTE | 2019-04-09 01:10 | NUR ---
bedside report received from LAZARO ALEXANDER, assume care of pt
--- NOTE | 2019-04-09 02:10 | NUR ---
up to bathroom, voided 750ml clear straw colored urine, bladder scan showed 42ml
[2019-04-09 05:48] VITALS: BP 100/65
[2019-04-09 05:54] VITALS: BP 108/74
--- NOTE | 2019-04-09 06:01 | PM&R Progress Note ---
Subjective HPI/CC On Admission Date Seen by Provider: Apr 09, 2019 Time Seen by Provider: 06:00 Subjective/Events-last exam Pt had a fall 2 days ago without injury and has not fallen since that time Lortab helping the chest tube placement site on the left Voiding pretty well since catheter removed and Flomax maintained so it appears he will maintain on the Flomax for that for the time being Overall optimistic attitude Conferred with RN. Reviewed therapy notes. Checked meds and labs. Review of Systems General: Fatigue Neurological: Weakness, Numbness, Incoordination, Confusion Objective Exam Vital Signs Vital Signs Date Time Temp Pulse Resp B/P (MAP) Pulse Ox O2 Delivery O2 Flow Rate FiO2 04/09/19 08:00 Room Air 04/09/19 05:54 36.6 79 16 108/74 (85) 97 Capillary Refill : Less Than 3 SecondsLess Than 3 Seconds General Appearance: No Apparent Distress, WD/WN, Chronically ill, Thin HEENT: PERRL/EOMI, Normal ENT Inspection, Pharynx Normal Neck: Full Range of Motion, Normal Inspection, Non Tender, Supple, Carotid Bruit Respiratory: Chest Non Tender, Lungs Clear, Normal Breath Sounds, No Accessory Muscle Use, No Respiratory Distress Cardiovascular: Regular Rate, Rhythm, No Edema, No Gallop, No JVD, No Murmur, Normal Peripheral Pulses Gastrointestinal: Normal Bowel Sounds, No Organomegaly, No Pulsatile Mass, Non Tender, Soft Back: Normal Inspection, No CVA Tenderness, No Vertebral Tenderness Extremity: Normal Capillary Refill, Normal Inspection, Normal Range of Motion, Non Tender, No Calf Tenderness, No Pedal Edema Neurologic/Psychiatric: Alert, Oriented x3, No Motor/Sensory Deficits, Normal Mood/Affect, Disoriented (subtle slow responses and recall), Motor Weakness (generalized all extremities, impulsive) Skin: Normal Color, Warm/Dry Lymphatic: No Adenopathy Results/Procedures Lab Patient resulted labs reviewed. FIM Transfers Therapy Code Descriptions/Definitions Functional [place] Measure: 0=Not Assessed/NA 4=Minimal Assistance 1=Total Assistance 5=Supervision or Setup 2=Maximal Assistance 6=Modified [place] 3=Moderate Assistance 7=Complete IndependenceSCALE: Activities may be completed with or without assistive devices. 0-Qwqxbuygwy-yzegmot completes the activity by him/herself with no assistance from a helper. 5-Set-up or Clean-up Assistance-helper sets up or cleans up; patient completes activity. [place] assists only prior to or following the activity. 4-Supervision or Touching Assistance-helper provides verbal cues and/or touching/steadying and/or contact guard assistance as patient completes activity. Assistance may be provided throughout the activity or intermittently. 3-Partial/Moderate Assistance-helper does LESS THAN HALF the effort. [place] lifts, holds or supports trunk or limbs, but provides less than half the effort. 2-Substantial/Maximal Assistance-helper does MORE THAN HALF the effort. [place] lifts or holds trunk or limbs and provides more than half the effort. 2-Ssmrliihx-rhfkxh does ALL the effort. Patient does none of the effort to complete the activity. Or, the assistance of 2 or more helpers is required for the patient to complete the activity. If activity was not attempted, code reason: 7-Patient Refused. 9-Not Applicable-not attempted and the patient did not perform the activity before the current illness, exacerbation or injury. 10-Not Attempted due to Environmental Limitations-(lack of equipment, weather restraints, etc.). 88-Not Attempted due to Medical Conditions or Safety Concerns. Roll Left to Right (QC): 6 Sit to Lying (QC): 6 Sit to Stand (QC): 4 Chair/Vgk-bf-Qeswi Xfer(QC): 3 Car Transfer (QC): 2 Gait Training Does the Patient Walk?: Yes Distance: 200'x2 Walk 10 feet (QC): 3 Walk 50 ft with 2 Turns(QC): 3 Walk 150 ft (QC): 3 Walking 10ft/uneven surface-QC: 2 (x 2 assist) Gait Persons Needed: 1 Gait Assistive Device: FWW Wheelchair Training Does the Pt Use a Wheelchair?: Yes Wheel 50 ft with 2 turns (QC): 4 Wheel 150 ft (QC): 88 Type of Wheelchair: Manual Stair Training #of Steps: 1 1 Step (curb) (QC): 2 (assist x 2 for safety) 4 Steps (QC): 88 12 Steps (QC): 88 Balance Picking up an Object (QC): 3 ADL-Treatment Oral Hygiene (QC): 4 (Pt completed grooming tasks sitting at sink, he required assistance squeezing toothpaste onto toothbrush, and brushed his hair with min A) Shower/Bathe Self (QC): 2 (Pt required assistance to maintain sitting balance during task. He required max A with LB due to thoroughness of task, and he dropped soap/wash cloth mulitple times. He was able to wash UEs and chest/abdomen. OT assisted with washing his back.) Upper Body Dressing (QC): 3 (Pt able to doff shirt with out assistance, required min A to don with assistance pulling shirt down in the back.) Lower Body Dressing (QC): 2 (Pt required Min A standing balance with stance at grab bars. He was able to thread BLEs into underwear, but required assist with threading pants, and he required total assist with closures.) On/Off Footwear (QC): 2 (Pt required total assist to take socks off due to decreased sitting balance on SC. He was able to don socks seated in w/c with CGA for sitting balance.) Toileting Hygiene (QC): 7 (Pt declined need to toilet at this time.) Assessment/Plan Assessment and Plan Assess & Plan/Chief Complaint Assessment: Anoxic brain injury Cognitive deficit CAD Constipation severe Urinary retention requiring payton cath now DC Fall to bathroom Plan: IRF protocol BM regimen Cardiology appreciated Dr Gentile appreciated DC [place] (1) Anoxic brain injury (2) CAD (coronary artery disease) (3) Malnutrition (4) Urinary retention (5) Constipation (6) [place] catheter in place (7) Hypertension RENEE JARVIS DO Apr 09, 2019 06:01
[2019-04-09] MEDS: CARVEDILOL 3.125 MG (COREG) TABLET PO SCH ×2 (06:45→17:38)
--- NOTE | 2019-04-09 08:41 | Occupational Ther Daily Note ---
OT Current Status-Daily Note Subjective Pt alert, sitting in therapy gym. Pt agrees to therapy though reluctantly. No c/o pain. Mental Status/Objective Patient Orientation: Person, Place, Time, Situation ADL-Treatment Therapy Code Descriptions/Definitions Functional [place] Measure: 0=Not Assessed/NA 4=Minimal Assistance 1=Total Assistance 5=Supervision or Setup 2=Maximal Assistance 6=Modified [place] 3=Moderate Assistance 7=Complete IndependenceSCALE: Activities may be completed with or without assistive devices. 5-Kqueyfvoop-oxqorwc completes the activity by him/herself with no assistance from a helper. 5-Set-up or Clean-up Assistance-helper sets up or cleans up; patient completes activity. [place] assists only prior to or following the activity. 4-Supervision or Touching Assistance-helper provides verbal cues and/or touching/steadying and/or contact guard assistance as patient completes activity. Assistance may be provided throughout the activity or intermittently. 3-Partial/Moderate Assistance-helper does LESS THAN HALF the effort. [place] lifts, holds or supports trunk or limbs, but provides less than half the effort. 2-Substantial/Maximal Assistance-helper does MORE THAN HALF the effort. [place] lifts or holds trunk or limbs and provides more than half the effort. 3-Xirspeviq-bdamid does ALL the effort. Patient does none of the effort to complete the activity. Or, the assistance of 2 or more helpers is required for the patient to complete the activity. If activity was not attempted, code reason: 7-Patient Refused. 9-Not Applicable-not attempted and the patient did not perform the activity before the current illness, exacerbation or injury. 10-Not Attempted due to Environmental Limitations-(lack of equipment, weather restraints, etc.). 88-Not Attempted due to Medical Conditions or Safety Concerns. Other Treatment Pt completed arm bike for 10 min with multiple recovery breaks throughout exercise. UE strengthening and increasing activity tolerance completed for daily functional tasks. Pt ambulated back to room with 3 balance breaks re quired assist to right self. After therapy, pt lying in bed with call light/phone in reach. Safety measures in place, all needs met in room. OT Short Term Goals Short Term Goals Time Frame: Apr 11, 2019 Eatin Oral hygiene: 4 Toileting hygiene: 3 Shower/bathe self: 3 Upper body dressin Lower body dressin Putting on/taking off footwear: 4 OT Alf Goals Agricultural Systems Specialist Goals Time Frame: Apr 25, 2019 Eating (QC): 6 Oral Hygiene (QC): 5 Toileting Hygiene (QC): 6 Shower/Bathe Self (QC): 4 Upper Body Dressing (QC): 4 Lower Body Dressing (QC): 4 On/Off Footwear (QC): 4 Additional Goals: 1-Demonstrate ADL Tasks, 2-Verbalize Understanding, 3- ImproveStrength/[place] 1=Demonstrate adherence to instructed precautions during ADL tasks. 2=Patient will verbalize/demonstrate understanding of assistive devices/modifications for ADL. 3=Patient will improve strength/tolerance for activity to enable patient to perform ADL's. OT Education/Plan Problem List/Assessment Assessment: Decreased Activ Tolerance, Decreased UE Strength Discharge Recommendations Plan/Recommendations: Continue POC Treatment Plan/Plan of Care Patient would benefit from OT for education, treatment and training to promote independence in ADL's, mobility, safety and/or upper extremity function for ADL's. Plan of Care: ADL Retraining, Caregiver Training, Functional Mobility, Group Exercise/Act as Ind, UE Funct Exercise/Act Treatment Duration: Apr 25, 2019 Frequency: At least 5 of 7 days/Wk (IRF) Estimated Hrs Per Day: 1.5 hours per day Agreement: Yes Rehab Potential: Fair Time/GCodes Start Time: 08:30 Stop Time: 08:45 Total Time Billed (hr/min): 15 Billed Treatment Time 1 visit-EX 1 (15 min) TONIO HICKMAN Apr 09, 2019 08:41
[2019-04-09] MEDS: FLUTICASONE NASAL SPRAY (FLONASE) 16 GM BTL NS SCH (08:50)
[2019-04-09] MEDS: CLOPIDOGREL 75 MG (PLAVIX) TABLET PO SCH (08:50)
[2019-04-09] MEDS: lisINopril 5 MG (PRINIVIL) TABLET PO SCH (08:50)
[2019-04-09] MEDS: LACTULOSE SYRUP 10GM/15ML (ENULOSE) 30ML UDC PO SCH ×2 (08:50→19:58)
[2019-04-09] MEDS: SENNA W/DOCUSATE (SENOKOT S) TABLET PO SCH ×2 (08:50→21:35)
[2019-04-09] MEDS: TAMSULOSIN 0.4 MG (FLOMAX) CAP PO SCH ×2 (08:50→19:58)
[2019-04-09] MEDS: ASPIRIN 81 MG CHEW (CHILDREN'S ASA) PO SCH (08:50)
[2019-04-09] MEDS: DOCUSATE SODIUM 100 MG (COLACE) CAP PO SCH ×2 (08:50→21:35)
[2019-04-09] MEDS: BISACODYL 10 MG SUPP (DULCOLAX) PR SCH (08:51)
--- NOTE | 2019-04-09 11:58 | Physical Therapy Daily Note ---
PT Daily Note-Current Subjective Pt agreeable. Pain rated 2/10 (B) rib cage area. Pt c/o fatigue at times, allowed to rest and recover. Transfers SCALE: Activities may be completed with or without assistive devices. 8-Xzmnopirat-nlghefi completes the activity by him/herself with no assistance from a helper. 5-Set-up or Clean-up Assistance-helper sets up or cleans up; patient completes activity. [place] assists only prior to or following the activity. 4-Supervision or Touching Assistance-helper provides verbal cues and/or touching/steadying and/or contact guard assistance as patient completes activity. Assistance may be provided throughout the activity or intermittently. 3-Partial/Moderate Assistance-helper does LESS THAN HALF the effort. [place] lifts, holds or supports trunk or limbs, but provides less than half the effort. 2-Substantial/Maximal Assistance-helper does MORE THAN HALF the effort. [place] lifts or holds trunk or limbs and provides more than half the effort. 2-Cydpdfbjp-xvbsud does ALL the effort. Patient does none of the effort to complete the activity. Or, the assistance of 2 or more helpers is required for the patient to complete the activity. If activity was not attempted, code reason: 7-Patient Refused. 9-Not Applicable-not attempted and the patient did not perform the activity before the current illness, exacerbation or injury. 10-Not Attempted due to Environmental Limitations-(lack of equipment, weather restraints, etc.). 88-Not Attempted due to Medical Conditions or Safety Concerns. Weight Bearing Right Lower Extremity: Right Full Weight Bearing Left Lower Extremity: Left Full Weight Bearing Exercises NuStep Minutes: 7 NuStep Workload: 4 Treatments Transfers close SBA, Amb with FWW and CGA 2 x 200ft. Assessment Current Status: Fair Progress Pt fatigued easily. Pt able to rest, recover and continue. Pt occasional unsteadiness, no LOB. Pt in care of VEHICLE INSURANCE AGENT post therapy session. PT Fdc Goals Weed Inspector Goals PT Weed Inspector Goals Time Frame: May 07, 2019 Roll Left & Right (QC): 6 Sit to Lying (QC): 6 Lying-Sitting on Side/Bed(QC): 6 Sit to Stand (QC): 5 Chair/Jlp-is-Fxlms Xfer(QC): 5 Toilet Transfer (QC): 5 Car Transfer (QC): 5 Does the Patient Walk: Yes Walk 10 feet (QC): 6 Walk 50ft with 2 Turns (QC): 6 Walk 150 ft (QC): 6 Walking 10ft on Uneven Surface: 6 1 Step (curb) (QC): 6 4 Steps (QC): 6 12 Steps (QC): 6 Picking up an Object (QC): 6 PT Plan Treatment/Plan Treatment Plan: Continue Plan of Care Treatment Plan: Bed Mobility, Concurrent Therapy, Education, Functional Activity [place], Functional Strength, Group Therapy, Gait, Safety, Therapeutic Exercise, Transfers Treatment Duration: May 07, 2019 Frequency: At least 5 of 7 days/Wk (IRF) Estimated Hrs Per Day: 1.5 hours per day Patient and/or Family Agrees t: Yes Time/GCodes Time In: 810 Time Out: 825 Total Billed Treatment Time: 15 Total Billed Treatment 1, gait 8', Ther ex 7' SAMIR HARMON CPTA Apr 09, 2019 11:58
--- NOTE | 2019-04-09 14:31 | Progress Note - Urology ---
Progress Note-Urology Progress Notes/Assess & Plan Progress/Assessment & Plan CONTINUES VOIDING WELL. PVR MINIMAL Final Diagnosis URINE RETENTION (RESOLVED) EDMUNDO DICK MD Apr 09, 2019 14:31
[2019-04-09 16:00] VITALS: BP 109/73
[2019-04-09] MEDS: ENOXAPARIN 40 MG/0.4 ML (LOVENOX) SYR SC SCH (20:01)
[2019-04-09] MEDS: polyethylene glycoL POWDER 17 GM (MIRALAX) PACK PO SCH (21:35)
[2019-04-10 05:39] VITALS: BP 99/62
[2019-04-10] MEDS: CARVEDILOL 3.125 MG (COREG) TABLET PO SCH ×2 (05:40→17:42)
[2019-04-10] MEDS: CLOPIDOGREL 75 MG (PLAVIX) TABLET PO SCH (10:23)
[2019-04-10] MEDS: BISACODYL 10 MG SUPP (DULCOLAX) PR SCH (10:23)
[2019-04-10] MEDS: ASPIRIN 81 MG CHEW (CHILDREN'S ASA) PO SCH (10:23)
[2019-04-10] MEDS: TAMSULOSIN 0.4 MG (FLOMAX) CAP PO SCH ×2 (10:23→20:22)
[2019-04-10] MEDS: lisINopril 5 MG (PRINIVIL) TABLET PO SCH (10:24)
[2019-04-10] MEDS: SENNA W/DOCUSATE (SENOKOT S) TABLET PO SCH ×2 (10:24→20:23)
--- NOTE | 2019-04-10 10:26 | NUR ---
states that pt is getting strength back in the Lt arm more, & improved dexterity, pleased w progress.
[2019-04-10] MEDS: DOCUSATE SODIUM 100 MG (COLACE) CAP PO SCH ×2 (10:27→20:23)
[2019-04-10] MEDS: LACTULOSE SYRUP 10GM/15ML (ENULOSE) 30ML UDC PO SCH ×2 (10:27→20:23)
[2019-04-10] MEDS: FLUTICASONE NASAL SPRAY (FLONASE) 16 GM BTL NS SCH (10:28)
--- NOTE | 2019-04-10 11:23 | Cardiology Progress Note ---
Subjective Date Seen by Provider: Apr 10, 2019 Time Seen by Provider: 11:22 Subjective/Events-last exam Patient is laying down in bed, feeling better, no new complaint Review of Systems General: No Chills, No Night Sweats, No Fatigue, No Malaise, No Appetite, No Other HEENT: No Head Aches, No Visual Changes, No Eye Pain, No Ear Pain, No Dysphasia, No Sinus Congestion, No Post Nasal Drip, No Sore Throat, No Other Pulmonary: No Dyspnea, No Cough, No Pleuritic Chest Pain, No Other Cardiovascular: No: Chest Pain, Palpitations, Orthopnea, Paroxysmal Noc. Dyspnea, Edema, Lt Headedness, Other Objective-Cardiology Exam Last Set of Vital Signs Vital Signs 04/10/19 05:39 Temp 36.3 Pulse 73 Resp 16 B/P (MAP) 99/62 (74) Pulse Ox 98 O2 Delivery Room Air Capillary Refill : Less Than 3 SecondsLess Than 3 Seconds I&O Intake and Output 04/10/19 00:00 Intake Total 1700 ml Output Total 2450 ml Balance -750 ml Intake Oral 1700 ml Output Urine Total 2450 ml Bladder Scan Volume Amount 42 ml # Voids 1 # Bowel Movements 1 General: Alert, Oriented X3, Cooperative HEENT: Atraumatic, PERRLA Neck: Supple, No JVD, No Thyromegaly Lungs: Clear to Auscultation, Normal Air Movement Heart: Regular Rate, Normal S1, Normal S2, No Murmurs Abdomen: Normal Bowel Sounds, Soft, No Tenderness, No Hepatosplenomegaly, No Masses Extremities: No Clubbing, No Cyanosis, No Edema, Normal Pulses, No Tenderness/Swelling Skin: No Rashes, No Breakdown, No Significant Lesion Neuro: Normal Speech, Cranial Nerves 3-12 NL Psych/Mental Status: Mental Status NL, Mood NL A/P-Cardiology Admission Diagnosis s/p cardiac arrest STEMI CAD HTN HLP Assessment/Plan CAD, s/p cardiac arrest on 03/18/2019 with STEMI, underwent emergent cardiac catheterization done at [facility] demonstrating 100% occlusion of cx, critical stenosis of LAD. Underwent Synergy [id number] stent to te mid circumflex and synergy 3.0x16mm stent to the proximal circumflex. Synergy 2.5 x20mm to mid LAD and Syncergy 2.75x 24mm to prox LAD. Currently on Plavix and ASA, continue to monitor Cardiomyopathy, acute left ventricular systolic dysfunction secondary to acute myocardial infarction, echocardiogram showed normal left ventricular size and systolic function, ejection fraction 50-55 percent, mild hypokinesia at the apical lateral wall, PA pressure 25 mmHg. Continue to monitor Bilateral pneumothorax, s/p CT placement, resolved, chest tubes discontinued Recent pneumonia- resolved, continue to monitor. Hypertension, currently borderline hypotensive. Maintained on Coreg 3.125mg BID and Lisinopril 5mg daily. Continue to monitor. Hyperlipidemia, maintained on stating, continue to monitor. Hx of RBBB. Constipation, management per PCP Urinary retention, resolved, payton d/c'd. Tobaccoism, patient chewed tobacco. Educated on avoiding tobacco product Arthritis, management per PCP Nonobstructive carotid artery stenosis-last carotid duplex done November 2015. Continue to monitor. Strong family history of heart disease Clinical Quality Measures DVT/VTE Risk/Contraindication: Risk Factor Score Per Nursin RFS Level Per Nursing on Admit: 4+=Very High KIRIT CONTRERAS MD Apr 10, 2019 11:23
--- NOTE | 2019-04-10 15:17 | PM&R Progress Note ---
Subjective HPI/CC On Admission Date Seen by Provider: Apr 10, 2019 Time Seen by Provider: 11:15 Subjective/Events-last exam Pt had a fall 3 days ago without injury and has not fallen since that time Lortab helping the chest tube placement site on the left Voiding pretty well since catheter removed and Flomax maintained so it appears he will maintain on the Flomax for that for the time being Overall optimistic attitude Wanted to go on a daypass today but I feel like that is premature and updated him on why I think that and he understands so I recommended going outside with his family in the golf Conferred with RN. Reviewed therapy notes. Checked meds and labs. Review of Systems General: Fatigue Neurological: Weakness, Numbness, Incoordination Objective Exam Vital Signs Vital Signs Date Time Temp Pulse Resp B/P (MAP) Pulse Ox O2 Delivery O2 Flow Rate FiO2 04/10/19 05:39 36.3 73 16 99/62 (74) 98 Room Air Capillary Refill : Less Than 3 SecondsLess Than 3 Seconds General Appearance: No Apparent Distress, WD/WN, Chronically ill, Thin HEENT: PERRL/EOMI, Normal ENT Inspection, Pharynx Normal Neck: Full Range of Motion, Normal Inspection, Non Tender, Supple, Carotid Bruit Respiratory: Chest Non Tender, Lungs Clear, Normal Breath Sounds, No Accessory Muscle Use, No Respiratory Distress Cardiovascular: Regular Rate, Rhythm, No Edema, No Gallop, No JVD, No Murmur, Normal Peripheral Pulses Gastrointestinal: Normal Bowel Sounds, No Organomegaly, No Pulsatile Mass, Non Tender, Soft Back: Normal Inspection, No CVA Tenderness, No Vertebral Tenderness Extremity: Normal Capillary Refill, Normal Inspection, Normal Range of Motion, Non Tender, No Calf Tenderness, No Pedal Edema Neurologic/Psychiatric: Alert, Oriented x3, No Motor/Sensory Deficits, Normal Mood/Affect, Disoriented (subtle slow responses and recall), Motor Weakness (generalized all extremities, impulsive) Skin: Normal Color, Warm/Dry Lymphatic: No Adenopathy Results/Procedures Lab Patient resulted labs reviewed. FIM Transfers Therapy Code Descriptions/Definitions Functional [place] Measure: 0=Not Assessed/NA 4=Minimal Assistance 1=Total Assistance 5=Supervision or Setup 2=Maximal Assistance 6=Modified [place] 3=Moderate Assistance 7=Complete IndependenceSCALE: Activities may be completed with or without assistive devices. 3-Maewphlgcu-tyxufsi completes the activity by him/herself with no assistance from a helper. 5-Set-up or Clean-up Assistance-helper sets up or cleans up; patient completes activity. [place] assists only prior to or following the activity. 4-Supervision or Touching Assistance-helper provides verbal cues and/or touching/steadying and/or contact guard assistance as patient completes activi ty. Assistance may be provided throughout the activity or intermittently. 3-Partial/Moderate Assistance-helper does LESS THAN HALF the effort. [place] lifts, holds or supports trunk or limbs, but provides less than half the effort. 2-Substantial/Maximal Assistance-helper does MORE THAN HALF the effort. [place] lifts or holds trunk or limbs and provides more than half the effort. 6-Xmhitzqoq-bdassb does ALL the effort. Patient does none of the effort to complete the activity. Or, the assistance of 2 or more helpers is required for the patient to complete the activity. If activity was not attempted, code reason: 7-Patient Refused. 9-Not Applicable-not attempted and the patient did not perform the activity before the current illness, exacerbation or injury. 10-Not Attempted due to Environmental Limitations-(lack of equipment, weather restraints, etc.). 88-Not Attempted due to Medical Conditions or Safety Concerns. Roll Left to Right (QC): 6 Sit to Lying (QC): 6 Sit to Stand (QC): 4 Chair/Xrp-ly-Qfxnk Xfer(QC): 3 Car Transfer (QC): 2 Gait Training Does the Patient Walk?: Yes Distance: 200'x2 Walk 10 feet (QC): 3 Walk 50 ft with 2 Turns(QC): 3 Walk 150 ft (QC): 3 Walking 10ft/uneven surface-QC: 2 (x 2 assist) Gait Persons Needed: 1 Gait Assistive Device: FWW Wheelchair Training Does the Pt Use a Wheelchair?: Yes Wheel 50 ft with 2 turns (QC): 4 Wheel 150 ft (QC): 88 Type of Wheelchair: Manual Stair Training #of Steps: 1 1 Step (curb) (QC): 2 (assist x 2 for safety) 4 Steps (QC): 88 12 Steps (QC): 88 Balance Picking up an Object (QC): 3 ADL-Treatment Oral Hygiene (QC): 4 (Pt completed grooming tasks sitting at sink, he required assistance squeezing toothpaste onto toothbrush, and brushed his hair with min A) Shower/Bathe Self (QC): 2 (Pt required assistance to maintain sitting balance during task. He required max A with LB due to thoroughness of task, and he dropped soap/wash cloth mulitple times. He was able to wash UEs and chest/ abdomen. OT assisted with washing his back.) Upper Body Dressing (QC): 3 (Pt able to doff shirt with out assistance, required min A to don with assistance pulling shirt down in the back.) Lower Body Dressing (QC): 2 (Pt required Min A standing balance with stance at grab bars. He was able to thread BLEs into underwear, but required assist with threading pants, and he required total assist with closures.) On/Off Footwear (QC): 2 (Pt required total assist to take socks off due to decreased sitting balance on SC. He was able to don socks seated in w/c with CGA for sitting balance.) Toileting Hygiene (QC): 7 (Pt declined need to toilet at this time.) Assessment/Plan Assessment and Plan Assess & Plan/Chief Complaint Assessment: Anoxic brain injury Cognitive deficit CAD Constipation severe resolved Urinary retention requiring payton cath now DC Fall to bathroom 3 days ago Plan: IRF protocol BM regimen Cardiology appreciated Dr Gentile appreciated DC Payton (1) Anoxic brain injury (2) CAD (coronary artery disease) (3) Malnutrition (4) Urinary retention (5) Constipation (6) Payton catheter in place (7) Hypertension RENEE JARVIS DO Apr 10, 2019 15:17
[2019-04-10 17:02] VITALS: BP 116/73
[2019-04-10] MEDS: ENOXAPARIN 40 MG/0.4 ML (LOVENOX) SYR SC SCH (20:22)
[2019-04-10] MEDS: polyethylene glycoL POWDER 17 GM (MIRALAX) PACK PO SCH (20:23)
--- NOTE | 2019-04-10 21:00 | NUR ---
FEELS IS GETTING STRONGER AND IS VOIDING WELL. DENIES PAIN. STATES LEFT SIDE WOUND FROM OLD CHEST TUBE IS FEELING MUCH BETTER. STILL CONFUSED TO TIME. AT BEDSIDE AND BED EXIT ALARM ON.
[2019-04-11 05:59] VITALS: BP 102/68
--- NOTE | 2019-04-11 06:00 | NUR ---
SLEPT WELL. ASSISTED UP TO BATHROOM. VOIDING WELL. BALANCE POOR THIS AM.
[2019-04-11 06:10] LABS: BASOPHILS % (AUTO) 0 % (0-10); EOSINOPHILS # (AUTO) 0.2 10^3/uL (0.0-0.3); EOSINOPHILS % (AUTO) 5 % (0-10); LYMPHOCYTES # (AUTO) 0.8 X 10^3 (1.0-4.0); LYMPHOCYTES % (AUTO) 17 % (12-44); MEAN CORPUSCULAR HGB CONC 33 G/DL (32-36); MEAN CORPUSCULAR VOLUME 86 FL (80-99); MEAN PLATELET VOLUME 9.2 FL (7.4-10.4); MONOCYTES # (AUTO) 0.6 X 10^3 (0.0-1.0); MONOCYTES % (AUTO) 13 % (0-12); NEUTROPHILS # (AUTO) 3.1 X 10^3 (1.8-7.8); NEUTROPHILS % (AUTO) 66 % (42-75); RED CELL DISTRIBUTION WIDTH 13.6 % (10.0-14.5)
[2019-04-11 06:11] LABS: WHITE BLOOD COUNT 5.2 10^3/uL (4.3-11.0)
[2019-04-11 06:12] LABS: HEMATOCRIT 36 % (40-54); HEMOGLOBIN 12.1 G/DL (13.3-17.7); MEAN CORPUSCULAR HEMOGLOBIN 28 PG (25-34); PLATELET COUNT 464 10^3/uL (130-400)
[2019-04-11] MEDS: CARVEDILOL 3.125 MG (COREG) TABLET PO SCH ×2 (06:12→16:45)
[2019-04-11 06:31] LABS: ALANINE AMINOTRANSFERASE 40 U/L (0-55); ALBUMIN 3.4 GM/DL (3.2-4.5); ALKALINE PHOSPHATASE 151 U/L (40-136); BILIRUBIN,TOTAL 0.4 MG/DL (0.1-1.0); BUN/CREATININE RATIO 21; CALCIUM 9.3 MG/DL (8.5-10.1); CARBON DIOXIDE 17 MMOL/L (21-32); CHLORIDE 108 MMOL/L (98-107); CREATININE SERUM 0.82 MG/DL (0.60-1.30); GFR ESTIMATED > 60; GLUCOSE 101 MG/DL (70-105); POTASSIUM 4.4 MMOL/L (3.6-5.0); SODIUM 136 MMOL/L (135-145); TOTAL PROTEIN 6.5 GM/DL (6.4-8.2)
[2019-04-11] MEDS: LACTULOSE SYRUP 10GM/15ML (ENULOSE) 30ML UDC PO SCH ×2 (07:47→20:11)
[2019-04-11] MEDS: BISACODYL 10 MG SUPP (DULCOLAX) PR SCH (07:48)
[2019-04-11] MEDS: DOCUSATE SODIUM 100 MG (COLACE) CAP PO SCH ×2 (07:49→20:12)
[2019-04-11] MEDS: SENNA W/DOCUSATE (SENOKOT S) TABLET PO SCH ×2 (07:49→20:13)
[2019-04-11] MEDS: lisINopril 5 MG (PRINIVIL) TABLET PO SCH (08:16)
[2019-04-11] MEDS: TAMSULOSIN 0.4 MG (FLOMAX) CAP PO SCH ×2 (08:16→20:11)
[2019-04-11] MEDS: ASPIRIN 81 MG CHEW (CHILDREN'S ASA) PO SCH (08:16)
[2019-04-11] MEDS: CLOPIDOGREL 75 MG (PLAVIX) TABLET PO SCH (08:16)
[2019-04-11] MEDS: FLUTICASONE NASAL SPRAY (FLONASE) 16 GM BTL NS SCH (08:17)
--- NOTE | 2019-04-11 08:37 | Cardiology Progress Note ---
Subjective Date Seen by Provider: Apr 11, 2019 Time Seen by Provider: 08:36 Subjective/Events-last exam Patient is sitting up in bed, no new complaints. Denies any chest pain or dyspnea. Review of Systems General: No Chills, No Night Sweats, No Fatigue, No Malaise, No Appetite, No Other HEENT: No Head Aches, No Visual Changes, No Eye Pain, No Ear Pain, No Dysphasia, No Sinus Congestion, No Post Nasal Drip, No Sore Throat, No Other Pulmonary: No Dyspnea, No Cough, No Pleuritic Chest Pain, No Other Cardiovascular: No: Chest Pain, Palpitations, Orthopnea, Paroxysmal Noc. Dyspnea, Edema, Lt Headedness, Other Objective-Cardiology Exam Last Set of Vital Signs Vital Signs 04/11/19 04/11/19 05:59 09:00 Temp 36.0 Pulse 84 Resp 18 B/P (MAP) 102/68 (79) Pulse Ox 97 O2 Delivery Room Air Capillary Refill : Less Than 3 SecondsLess Than 3 Seconds I&O Intake and Output 04/11/19 00:00 Intake Total 1700 ml Output Total 1900 ml Balance -200 ml Intake Oral 1700 ml Output Urine Total 1900 ml # Voids 2 General: Alert, Oriented X3, Cooperative HEENT: Atraumatic, PERRLA Neck: Supple, No JVD, No Thyromegaly Lungs: Clear to Auscultation, Normal Air Movement Heart: Regular Rate, Normal S1, Normal S2, No Murmurs Abdomen: Normal Bowel Sounds, Soft, No Tenderness, No Hepatosplenomegaly, No Masses Extremities: No Clubbing, No Cyanosis, No Edema, Normal Pulses, No Tenderness/Swelling Skin: No Rashes, No Breakdown, No Significant Lesion Neuro: Normal Speech, Cranial Nerves 3-12 NL Psych/Mental Status: Mental Status NL, Mood NL Results Lab Laboratory Tests 04/11/19 06:00 A/P-Cardiology Admission Diagnosis s/p cardiac arrest STEMI CAD HTN HLP Assessment/Plan CAD, s/p cardiac arrest on 03/18/2019 with STEMI, underwent emergent cardiac catheterization done at [facility] demonstrating 100% occlusion of cx, critical stenosis of LAD. Underwent Synergy [id number] stent to te mid circumflex and synergy 3.0x16mm stent to the proximal circumflex. Synergy 2.5 x20mm to mid LAD and Syncergy 2.75x 24mm to prox LAD. Currently on Plavix and ASA, continue to m onitor Cardiomyopathy, acute left ventricular systolic dysfunction secondary to acute myocardial infarction, echocardiogram showed normal left ventricular size and systolic function, ejection fraction 50-55 percent, mild hypokinesia at the apical lateral wall, PA pressure 25 mmHg. Continue to monitor Bilateral pneumothorax, s/p CT placement, resolved, chest tubes discontinued Recent pneumonia- resolved, continue to monitor. Hypertension, currently borderline hypotensive. Maintained on Coreg 3.125mg BID and Lisinopril 5mg daily. Continue to monitor. Hyperlipidemia, maintained on stating, continue to monitor. Hx of RBBB. Constipation, management per PCP Urinary retention, resolved, payton d/c'd. Tobaccoism, patient chewed tobacco. Educated on avoiding tobacco product Arthritis, management per PCP Nonobstructive carotid artery stenosis-last carotid duplex done November 2015. Continue to monitor. Strong family history of heart disease Patient was seen and evaluated with Corine, examination performed, management plan was discussed, agree with the current scribed note, I made few changes to the note using Italic font Clinical Quality Measures DVT/VTE Risk/Contraindication: Risk Factor Score Per Nursin RFS Level Per Nursing on Admit: 4+=Very High CORINE QUINN Apr 11, 2019 08:36 KIRIT CONTRERAS MD Apr 11, 2019 12:07
--- NOTE | 2019-04-11 09:03 | Progress Note - Urology ---
Progress Note-Urology Progress Notes/Assess & Plan Progress/Assessment & Plan CONTINUES WELL BRAY. WE WILL SEE PRN Final Diagnosis URINE RETENTION (RESOLVED) EDMUNDO DICK MD Apr 11, 2019 09:03
--- NOTE | 2019-04-11 09:46 | PM&R Progress Note ---
Subjective HPI/CC On Admission Date Seen by Provider: Apr 11, 2019 Time Seen by Provider: 09:30 Subjective/Events-last exam Neurologic deficiencies noted Had a BM on the 16th Buttocks are a bit red so will place barrier cream Labs good Unstable gait Conferred with RN. Reviewed therapy notes. Checked meds and labs. Review of Systems General: Fatigue Neurological: Weakness, Numbness, Incoordination Objective Exam Vital Signs Vital Signs Date Time Temp Pulse Resp B/P (MAP) Pulse Ox O2 Delivery O2 Flow Rate FiO2 04/11/19 17:11 37.0 72 18 110/74 (86) 96 Room Air Capillary Refill : Less Than 3 SecondsLess Than 3 Seconds General Appearance: No Apparent Distress, WD/WN, Chronically ill, Thin HEENT: PERRL/EOMI, Normal ENT Inspection, Pharynx Normal Neck: Full Range of Motion, Normal Inspection, Non Tender, Supple, Carotid Bruit Respiratory: Chest Non Tender, Lungs Clear, Normal Breath Sounds, No Accessory Muscle Use, No Respiratory Distress Cardiovascular: Regular Rate, Rhythm, No Edema, No Gallop, No JVD, No Murmur, Normal Peripheral Pulses Gastrointestinal: Normal Bowel Sounds, No Organomegaly, No Pulsatile Mass, Non Tender, Soft Back: Normal Inspection, No CVA Tenderness, No Vertebral Tenderness Extremity: Normal Capillary Refill, Normal Inspection, Normal Range of Motion, Non Tender, No Calf Tenderness, No Pedal Edema Neurologic/Psychiatric: Alert, Oriented x3, No Motor/Sensory Deficits, Normal Mood/Affect, Disoriented (subtle slow responses and recall), Motor Weakness (generalized all extremities, impulsive) Skin: Normal Color, Warm/Dry Lymphatic: No Adenopathy Results/Procedures Lab Laboratory Tests 04/11/19 06:00 Patient resulted labs reviewed. FIM Transfers Therapy Code Descriptions/Definitions Functional [place] Measure: 0=Not Assessed/NA 4=Minimal Assistance 1=Total Assistance 5=Supervision or Setup 2=Maximal Assistance 6=Modified [place] 3=Moderate Assistance 7=Complete IndependenceSCALE: Activities may be completed with or without assistive devices. 7-Urtolynbyp-ygkypov completes the activity by him/herself with no assistance from a helper. 5-Set-up or Clean-up Assistance-helper sets up or cleans up; patient completes activity. Ball assists only prior to or following the activity. 4-Supervision or Touching Assistance-helper provides verbal cues and/or touching/steadying and/or contact guard assistance as patient completes activity. Assistance may be provided throughout the activity or intermittently. 3-Partial/Moderate Assistance-helper does LESS THAN HALF the effort. Ball lifts, holds or supports trunk or limbs, but provides less than half the effort. 2-Substantial/Maximal Assistance-helper does MORE THAN HALF the effort. Ball lifts or holds trunk or limbs and provides more than half the effort. 9-Fblqvrmgu-jizhlh does ALL the effort. Patient does none of the effort to complete the activity. Or, the assistance of 2 or more helpers is required for the patient to complete the activity. If activity was not attempted, code reason: 7-Patient Refused. 9-Not Applicable-not attempted and the patient did not perform the activity before the current illness, exacerbation or injury. 10-Not Attempted due to Environmental Limitations-(lack of equipment, weather restraints, etc.). 88-Not Attempted due to Medical Conditions or Safety Concerns. Roll Left to Right (QC): 6 Sit to Lying (QC): 6 Sit to Stand (QC): 4 Chair/Eke-ma-Nyvcj Xfer(QC): 3 Car Transfer (QC): 2 Gait Training Does the Patient Walk?: Yes Distance: 200'x2 Walk 10 feet (QC): 3 Walk 50 ft with 2 Turns(QC): 3 Walk 150 ft (QC): 3 Walking 10ft/uneven surface-QC: 2 (x 2 assist) Gait Persons Needed: 1 Gait Assistive Device: FWW Wheelchair Training Does the Pt Use a Wheelchair?: Yes Wheel 50 ft with 2 turns (QC): 4 Wheel 150 ft (QC): 88 Type of Wheelchair: Manual Stair Training #of Steps: 1 1 Step (curb) (QC): 2 (assist x 2 for safety) 4 Steps (QC): 88 12 Steps (QC): 88 Balance Picking up an Object (QC): 3 ADL-Treatment Oral Hygiene (QC): 4 (Pt completed grooming tasks sitting at sink, he required assistance squeezing toothpaste onto toothbrush, and brushed his hair with min A) Shower/Bathe Self (QC): 2 (Pt required assistance to maintain sitting balance during task. He required max A with LB due to thoroughness of task, and he dropped soap/wash cloth mulitple times. He was able to wash UEs and chest/abdomen. OT assisted with washing his back.) Upper Body Dressing (QC): 3 (Pt able to doff shirt with out assistance, required min A to don with assistance pulling shirt down in the back.) Lower Body Dressing (QC): 2 (Pt required Min A standing balance with stance at grab bars. He was able to thread BLEs into underwear, but required assist with threading pants, and he required total assist with closures.) On/Off Footwear (QC): 2 (Pt required total assist to take socks off due to decreased sitting balance on SC. He was able to don socks seated in w/c with CGA for sitting balance.) Toileting Hygiene (QC): 7 (Pt declined need to toilet at this time.) Assessment/Plan Assessment and Plan Assess & Plan/Chief Complaint Assessment: Anoxic brain injury Cognitive deficit CAD Constipation severe resolved Urinary retention requiring payton cath now DC Fall to bathroom 4 days ago Plan: IRF protocol BM regimen Cardiology appreciated Dr Gentile appreciated DC Payton (1) Anoxic brain injury (2) CAD (coronary artery disease) (3) Malnutrition (4) Urinary retention (5) Constipation (6) Payton catheter in place (7) Hypertension RENEE JARVIS DO Apr 11, 2019 09:46
--- NOTE | 2019-04-11 10:00 | Speech Therapy Daily Note ---
Speech Daily Progress Note Subjective Date Seen by Provider: Apr 11, 2019 Time Seen by Provider: 08:30 Patient was alert, cooperative, and upbeat for all therapy tasks. Patient reported that he is ready to go home. Patient sat upright in his bed for the duration of treatment. Objective Patient completed problem-solving tasks pertaining to sentence completion and categorical members with 80% and moderate cues. Patient completed speech production exercises with 80% accuracy. Treatment Plan Continue Plan of Care Speech Short Term Goals Short Term Goals Short Term Goals 1) Patient will complete memory exercises related to his daily living skills with 80% or greater. 2) Patient will complete safety awareness exercises related to his daily living skills with 80% or greater. 3) Patient will complete problem solving exercises related to his daily living skills with 80% or greater. 4) Patient will complete speech production exercises at 80% or greater with minimal cues. Speech Heavy Equipment Rental Manager Goals Heavy Equipment Rental Manager Goals Patient will improve cognitive-communication and speech exercises necessary for safety and daily living tasks with minimal assist and effective communication. Speech-Plan Patient/Family Goals Patient/Family Goals: Patient reported that he is ready to go home and previous level of mobility. Treatment Plan Speech Therapy Treatment Plan: Continue Plan of Care Treatment Duration: Apr 15, 2019 Frequency: 5 times per week Estimated Hrs Per Day: .5 hour per day Rehab Potential: Fair Barriers to Learning: Moderate cognitive deficits. Pt/Family Agrees to Plan: Yes Safety Risks/Education Teaching Recipient: Patient Teaching Methods: Demonstration Response to Teaching: Verbalize Understanding Education Topics Provided: Utilization of safety awareness strategies. Time Speech Therapy Time In: 08:30 Speech Therapy Time Out: 09:00 Total Billed Time: 30 Billed Treatment Time [address] Apr 11, 2019 10:00
--- NOTE | 2019-04-11 10:01 | Occupational Ther Daily Note ---
OT Current Status-Daily Note Subjective [id number]: Pt seen in bed, present. Pt agreeable to OT tx session, denies pain. [id number]: Pt seen in bed, present. Pt agrees to OT tx session, when given options for tx pt states he does not care. Pt agrees to theraband ex within room in stance/ in bed. Mental Status/Objective Patient Orientation: Person, Place, Situation ADL-Treatment Therapy Code Descriptions/Definitions Functional [place] Measure: 0=Not Assessed/NA 4=Minimal Assistance 1=Total Assistance 5=Supervision or Setup 2=Maximal Assistance 6=Modified [place] 3=Moderate Assistance 7=Complete IndependenceSCALE: Activities may be completed with or without assistive devices. 9-Yedheingze-lbqhbmt completes the activity by him/herself with no assistance from a helper. 5-Set-up or Clean-up Assistance-helper sets up or cleans up; patient completes activity. Monon assists only prior to or following the activity. 4-Supervision or Touching Assistance-helper provides verbal cues and/or touching/steadying and/or contact guard assistance as patient completes activity. Assistance may be provided throughout the activity or intermittently. 3-Partial/Moderate Assistance-helper does LESS THAN HALF the effort. Monon lifts, holds or supports trunk or limbs, but provides less than half the effort. 2-Substantial/Maximal Assistance-helper does MORE THAN HALF the effort. Monon lifts or holds trunk or limbs and provides more than half the effort. 8-Ocoqbdugw-ovovaj does ALL the effort. Patient does none of the effort to complete the activity. Or, the assistance of 2 or more helpers is required for the patient to complete the activity. If activity was not attempted, code reason: 7-Patient Refused. 9-Not Applicable-not attempted and the patient did not perform the activity before the current illness, exacerbation or injury. 10-Not Attempted due to Environmental Limitations-(lack of equipment, weather restraints, etc.). 88-Not Attempted due to Medical Conditions or Safety Concerns. Oral Hygiene (QC): 4 (CGA in stance.) Upper Body Dressing (QC): 5 (s/u EOB) Lower Body Dressing (QC): 4 (SBA EOB, CGA in stance.) On/Off Footwear: 4 (SBA EOB, pt impulsive, begins reaching under bed from max hip flexion to reach shoes. Pt educated on safety and continuation to think about movements. Pt completes with SBA.) Other Treatment [id number]: Pt denies shower, states took shower yesterday. encourages, pt denies. pt agrees to change clothing. Pt changes EOB with min cues for assist (dressing L LE first). Pt impulsive during dressing tasks, requires cues for safety. Pt completes oral hygiene/ hair/ shaving in front of sink with CGA. Pt utilizes w/c to go to therapy gym, SBA with w/c mobility. Pt completes 7 min of mod resistance (25 watt) arm bike with 4 rest breaks. Pt's back roller/ pinch/ 9 hole peg taken: R: 45 lbs/ 17lbs/ 37.5 sec; L: 30 lbs/ 11 lbs/ 65 sec. Pt educated on difference. Pt reaches in above-shoulder planes with 2# weights donned bilaterally to reach pegs, places with L hand with increased attention/ time in peg board. Completes 3 small rows (~12 pegs) in 8 min. pt returns to room in w/c, present. Pt educated on PT post-OT, pt agrees to stay in w/c. Left in room with instruction to call if need to get up/ utilize restroom. Both pt and nod. [id number]: Pt agrees to theraband ex within the room. pt and educated on ability to complete exercises within room without therapy present while in seated in chair/ bed. Pt and provided education throughout ex. Pt completes 10 reps bilaterally of following exercises with yellow theraband: (in stance at walker:) shoulder flexion, bicep curls, shoulder extension; (in sit EOB:) horizontal shoulder ab/adduction, torso twists; (laying supine in bed:) internal shoulder rotation, back flies. Pt denies need for bathroom, food enters and pt wishes to remain in bed to eat; pt's tears salt/ pepper and asks if pt wants, pt questioned if had any difficulty with this action-pt and deny difficulty. Pt left with with call light on bed/ within reach, all needs met. Education OT Patient Education: Correct positioning, Exercise program, Instructions to caregiver, Modified ADL techniques, Purpose of tx/functional activities, Safety issues Teaching Recipient: Patient Teaching Methods: Demonstration, Discussion Response to Teaching: Verbalize Understanding, Return Demonstration, Reinforcement Needed OT Short Term Goals Short Term Goals Time Frame: Apr 11, 2019 Eatin Oral hygiene: 4 Toileting hygiene: 3 Shower/bathe self: 3 Upper body dressin Lower body dressin Putting on/taking off footwear: 4 OT Bin Piler Goals Correction Goals Time Frame: Apr 25, 2019 Eating (QC): 6 Oral Hygiene (QC): 5 Toileting Hygiene (QC): 6 Shower/Bathe Self (QC): 4 Upper Body Dressing (QC): 4 Lower Body Dressing (QC): 4 On/Off Footwear (QC): 4 Additional Goals: 1-Demonstrate ADL Tasks, 2-Verbalize Understanding, 3- ImproveStrength/Hayder 1=Demonstrate adherence to instructed precautions during ADL tasks. 2=Patient will verbalize/demonstrate understanding of assistive devices/modifications for ADL. 3=Patient will improve strength/tolerance for activity to enable patient to perform ADL's. OT Education/Plan Problem List/Assessment Assessment: Decreased Activ Tolerance, Decreased Safety Aware, Decreased UE Strength, Dependent Transfers, Impaired Funct Balance, Impaired I ADL's, Impaired Self-Care Skills Discharge Recommendations Plan/Recommendations: Continue POC Treatment Plan/Plan of Care Treatment,Training & Education: Yes Patient would benefit from OT for education, treatment and training to promote independence in ADL's, mobility, safety and/or upper extremity function for ADL's. Plan of Care: ADL Retraining, Caregiver Training, Functional Mobility, Group Exercise/Act as Ind, UE Funct Exercise/Act Treatment Duration: Apr 25, 2019 Frequency: At least 5 of 7 days/Wk (IRF) Estimated Hrs Per Day: 1.5 hours per day Agreement: Yes Rehab Potential: Fair Time/GCodes Start Time: 09:00 (1130) Stop Time: 10:00 (1200) Total Time Billed (hr/min): 90 (60+30) Billed Treatment Time [id number]: 1, ADL, EX 3 (60) [id number]: 1, EX 2 (30) WANDA CROSS OTR Apr 11, 2019 10:01
--- NOTE | 2019-04-11 11:20 | Physical Therapy Daily Note ---
PT Daily Note-Current Subjective Patient in bed pre tx, agrees to PT, has no complaints of pain. Appearance Patient in bed post tx with nurse call, phone, tray, in room. Mental Status Patient Orientation: Person, Place, Situation Transfers SCALE: Activities may be completed with or without assistive devices. 7-Zwkvpnlrid-dhrrbfn completes the activity by him/herself with no assistance from a helper. 5-Set-up or Clean-up Assistance-helper sets up or cleans up; patient completes activity. [place]ward assists only prior to or following the activity. 4-Supervision or Touching Assistance-helper provides verbal cues and/or touching/steadying and/or contact guard assistance as patient completes activity. Assistance may be provided throughout the activity or intermittently. 3-Partial/Moderate Assistance-helper does LESS THAN HALF the effort. [place] lifts, holds or supports trunk or limbs, but provides less than half the effort. 2-Substantial/Maximal Assistance-helper does MORE THAN HALF the effort. [place] lifts or holds trunk or limbs and provides more than half the effort. 3-Eofagedli-guwpjm does ALL the effort. Patient does none of the effort to complete the activity. Or, the assistance of 2 or more helpers is required for the patient to complete the activity. If activity was not attempted, code reason: 7-Patient Refused. 9-Not Applicable-not attempted and the patient did not perform the activity before the current illness, exacerbation or injury. 10-Not Attempted due to Environmental Limitations-(lack of equipment, weather restraints, etc.). 88-Not Attempted due to Medical Conditions or Safety Concerns. Roll Left & Right (QC): 6 Sit to Lying (QC): 6 Lying to Sitting/Side of Bed(Q: 6 Sit to Stand (QC): 4 Chair/Luf-ce-Puhhj Xfer(QC): 4 Some unsteadiness during transfers CGA but did not actually need assist with balance. Weight Bearing Right Lower Extremity: Right Full Weight Bearing Left Lower Extremity: Left Full Weight Bearing Gait Training Distance: 400', 200', 120' Walk 10 feet (QC): 4 Walk 50 ft with 2 Turns(QC): 4 Walk 150 ft (QC): 4 Gait Assistive Device: FWW Slow ambulation, improved balance but still unsteady but no assist needed to recover balance Exercises Seated Therapy Exercises: Ankle pumps, Hip flexion, Hip abd/add (with RTB and ball) Seated Reps: 20 Standing: Hip Abduction, Hamstring curls, Heel/toe raises, Marching LAQ alternating for 5 min with 2# ankle weights, sidestepping 8' on one parallel bar x10, sit to stand x10 (3 sets) NuStep Minutes: 15 NuStep Workload: 4 Treatments transfers, bed mobility, functional strengthening, gait training Assessment Current Status: Fair Progress improved balance during ambulation, patient still has poor endurance and needs frequent rest breaks due to fatigue PT Mcc Goals Hand Ii Cutter Goals PT Mcc Goals Time Frame: May 07, 2019 Roll Left & Right (QC): 6 Sit to Lying (QC): 6 Lying-Sitting on Side/Bed(QC): 6 Sit to Stand (QC): 5 Chair/Tsh-of-Rcuav Xfer(QC): 5 Toilet Transfer (QC): 5 Car Transfer (QC): 5 Does the Patient Walk: Yes Walk 10 feet (QC): 6 Walk 50ft with 2 Turns (QC): 6 Walk 150 ft (QC): 6 Walking 10ft on Uneven Surface: 6 1 Step (curb) (QC): 6 4 Steps (QC): 6 12 Steps (QC): 6 Picking up an Object (QC): 6 PT Plan Problem List Problem List: Activity Tolerance, Functional Strength, Safety, Balance, Gait, Transfer Treatment/Plan Treatment Plan: Continue Plan of Care Treatment Plan: Bed Mobility, Concurrent Therapy, Education, Functional Activity Hayder, Functional Strength, Group Therapy, Gait, Safety, Therapeutic Exercise, Transfers Treatment Duration: May 07, 2019 Frequency: At least 5 of 7 days/Wk (IRF) Estimated Hrs Per Day: 1.5 hours per day Patient and/or Family Agrees t: Yes Safety Risks/Education Patient Education: Gait Training, Transfer Techniques, Correct Positioning, Safety Issues Teaching Recipient: Patient Teaching Methods: Demonstration, Discussion Response to Teaching: Reinforcement Needed Time/GCodes Time In: 1000 Time Out: 1130 Total Billed Treatment Time: 90 Total Billed Treatment 1 visit GT 30' EX 60' STEW CRAIG PT Apr 11, 2019 11:20
--- NOTE | 2019-04-11 12:54 | NUR ---
Clinical updates faxed to [facility] ([phone]) for continued stay review with request for additional days.
--- NOTE | 2019-04-11 15:19 | NUR ---
CM/SS CONCURRENT NOTE Observed patient working with PT this a.m., ambulating with FWW.
[2019-04-11 17:11] VITALS: BP 110/74
--- NOTE | 2019-04-11 19:08 | NUR ---
bedside report received from JANENE ALEXANDER, assume care of pt
[2019-04-11] MEDS: ENOXAPARIN 40 MG/0.4 ML (LOVENOX) SYR SC SCH (20:11)
[2019-04-11] MEDS: polyethylene glycoL POWDER 17 GM (MIRALAX) PACK PO SCH (20:13)
--- NOTE | 2019-04-11 20:42 | NUR ---
pt took Senokot & refused miralax, Colace & Enulose, at bedside, side rails up x4, bed alarm on, pt voiding adequately, states do not feel i need to pee after i go to bathroom
[2019-04-12 05:35] VITALS: BP 103/67
[2019-04-12] MEDS: CARVEDILOL 3.125 MG (COREG) TABLET PO SCH ×2 (06:30→17:17)
--- NOTE | 2019-04-12 08:06 | Cardiology Progress Note ---
Subjective Date Seen by Provider: Apr 12, 2019 Time Seen by Provider: 08:05 Subjective/Events-last exam Patient is sitting up in bed, feeling well, no new complaints. Denies any chest pain or dyspnea. Review of Systems General: No Chills, No Night Sweats, No Fatigue, No Malaise, No Appetite, No Other HEENT: No Head Aches, No Visual Changes, No Eye Pain, No Ear Pain, No Dysphasi a, No Sinus Congestion, No Post Nasal Drip, No Sore Throat, No Other Pulmonary: No Dyspnea, No Cough, No Pleuritic Chest Pain, No Other Cardiovascular: No: Chest Pain, Palpitations, Orthopnea, Paroxysmal Noc. Dys pnea, Edema, Lt Headedness, Other Objective-Cardiology Exam Last Set of Vital Signs Vital Signs 04/12/19 04/12/19 04/12/19 05:35 08:11 09:05 Temp 36.8 Pulse 89 Resp 18 B/P (MAP) 115/76 (89) Pulse Ox 96 O2 Delivery Room Air Capillary Refill : Less Than 3 SecondsLess Than 3 Seconds I&O Intake and Output 04/12/19 00:00 Intake Total 1050 ml Output Total 700 ml Balance 350 ml Intake Oral 1050 ml Output Urine Total 700 ml # Voids 5 # Bowel Movements 2 General: Alert, Oriented X3, Cooperative HEENT: Atraumatic, PERRLA Neck: Supple, No JVD, No Thyromegaly Lungs: Clear to Auscultation, Normal Air Movement Heart: Regular Rate, Normal S1, Normal S2, No Murmurs Abdomen: Normal Bowel Sounds, Soft, No Tenderness, No Hepatosplenomegaly, No Masses Extremities: No Clubbing, No Cyanosis, No Edema, Normal Pulses, No Tendernes s/Swelling Skin: No Rashes, No Breakdown, No Significant Lesion Neuro: Normal Speech, Cranial Nerves 3-12 NL Psych/Mental Status: Mental Status NL, Mood NL A/P-Cardiology Admission Diagnosis s/p cardiac arrest STEMI CAD HTN HLP Assessment/Plan CAD, s/p cardiac arrest on 03/18/2019 with STEMI, underwent emergent cardiac catheterization done at [facility] demonstrating 100% occlusion of cx, critical stenosis of LAD. Underwent Synergy 2.60h78do stent to te mid circumflex and synergy 3.0x16mm stent to the proximal circumflex. Synergy 2.5 x20mm to mid LAD and Syncergy 2.75x 24mm to prox LAD. Currently on Plavix and ASA, continue to monitor Cardiomyopathy, acute left ventricular systolic dysfunction secondary to acute myocardial infarction, echocardiogram showed normal left ventricular size and systolic function, ejection fraction 50-55 percent, mild hypokinesia at the apical lateral wall, PA pressure 25 mmHg. Continue to monitor Bilateral pneumothorax, s/p CT placement, resolved, chest tubes discontinued Hypertension, currently borderline hypotensive. Maintained on Coreg 3.125mg BID and Lisinopril 5mg daily. Continue to monitor. Hyperlipidemia, maintained on stating, continue to monitor. Hx of RBBB. Constipation,resolved, management per PCP Urinary retention, resolved, payton d/c'd. Tobaccoism, patient chewed tobacco. Educated on avoiding tobacco product Arthritis, management per PCP Nonobstructive carotid artery stenosis-last carotid duplex done November 2015. Continue to monitor. Strong family history of heart disease Patient was seen and evaluated with Corine, examination performed, management plan was discussed, agree with the current scribed note, I made few changes to the note using Italic font Patient is laying down in bed comfortable, no chest pain Continue on current medication Okay for discharge by cardiology Clinical Quality Measures DVT/VTE Risk/Contraindication: Risk Factor Score Per Nursin RFS Level Per Nursing on Admit: 4+=Very High CORINE QUINN Apr 12, 2019 8:06 am KIRIT CONTRERAS MD Apr 12, 2019 4:16 pm
[2019-04-12] MEDS: TAMSULOSIN 0.4 MG (FLOMAX) CAP PO SCH ×2 (08:07→20:10)
[2019-04-12] MEDS: CLOPIDOGREL 75 MG (PLAVIX) TABLET PO SCH (08:07)
[2019-04-12] MEDS: lisINopril 5 MG (PRINIVIL) TABLET PO SCH (08:07)
[2019-04-12] MEDS: ASPIRIN 81 MG CHEW (CHILDREN'S ASA) PO SCH (08:07)
[2019-04-12] MEDS: DOCUSATE SODIUM 100 MG (COLACE) CAP PO SCH ×2 (08:08→20:11)
[2019-04-12] MEDS: BISACODYL 10 MG SUPP (DULCOLAX) PR SCH (08:08)
[2019-04-12] MEDS: LACTULOSE SYRUP 10GM/15ML (ENULOSE) 30ML UDC PO SCH ×2 (08:08→20:10)
[2019-04-12] MEDS: SENNA W/DOCUSATE (SENOKOT S) TABLET PO SCH ×2 (08:09→20:11)
[2019-04-12] MEDS: FLUTICASONE NASAL SPRAY (FLONASE) 16 GM BTL NS SCH (08:09)
[2019-04-12 08:11] VITALS: BP 115/76
--- NOTE | 2019-04-12 08:55 | PM&R Progress Note ---
Subjective HPI/CC On Admission Date Seen by Provider: Apr 12, 2019 Time Seen by Provider: 09:00 Subjective/Events-last exam Urinating well on Flomax BID. Bowels are moving well. Wants to go home soon. Ambulating around the unit very well with his walker. No significant cardiac issues since he has been here. Conferred with RN. Reviewed therapy notes. Checked meds and labs. Review of Systems Neurological: Weakness, Numbness, Incoordination Objective Exam Vital Signs Vital Signs Date Time Temp Pulse Resp B/P (MAP) Pulse Ox O2 Delivery O2 Flow Rate FiO2 04/12/19 16:50 36.0 76 20 114/73 (87) 97 Room Air Capillary Refill : Less Than 3 SecondsLess Than 3 Seconds General Appearance: No Apparent Distress, WD/WN, Chronically ill, Thin HEENT: PERRL/EOMI, Normal ENT Inspection, Pharynx Normal Neck: Full Range of Motion, Normal Inspection, Non Tender, Supple, Carotid Bruit Respiratory: Chest Non Tender, Lungs Clear, Normal Breath Sounds, No Accessory Muscle Use, No Respiratory Distress Cardiovascular: Regular Rate, Rhythm, No Edema, No Gallop, No JVD, No Murmur, Normal Peripheral Pulses Gastrointestinal: Normal Bowel Sounds, No Organomegaly, No Pulsatile Mass, Non Tender, Soft Back: Normal Inspection, No CVA Tenderness, No Vertebral Tenderness Extremity: Normal Capillary Refill, Normal Inspection, Normal Range of Motion, Non Tender, No Calf Tenderness, No Pedal Edema Neurologic/Psychiatric: Alert, Oriented x3, No Motor/Sensory Deficits, Normal Mood/Affect, Disoriented (subtle slow responses and recall), Motor Weakness (generalized all extremities, impulsive) Skin: Normal Color, Warm/Dry Lymphatic: No Adenopathy Results/Procedures Lab Patient resulted labs reviewed. FIM Transfers Therapy Code Descriptions/Definitions Functional [place] Measure: 0=Not Assessed/NA 4=Minimal Assistance 1=Total Assistance 5=Supervision or Setup 2=Maximal Assistance 6=Modified [place] 3=Moderate Assistance 7=Complete IndependenceSCALE: Activities may be completed with or without assistive devices. 9-Tktejnzyfl-obmnscn completes the activity by him/herself with no assistance from a helper. 5-Set-up or Clean-up Assistance-helper sets up or cleans up; patient completes activity. [place] assists only prior to or following the activity. 4-Supervision or Touching Assistance-helper provides verbal cues and/or touching/steadying and/or contact guard assistance as patient completes activity. Assistance may be provided throughout the activity or intermittently. 3-Partial/Moderate Assistance-helper does LESS THAN HALF the effort. [place] lifts, holds or supports trunk or limbs, but provides less than half the effort. 2-Substantial/Maximal Assistance-helper does MORE THAN HALF the effort. [place] lifts or holds trunk or limbs and provides more than half the effort. 2-Umvotxtcq-pwrrvh does ALL the effort. Patient does none of the effort to complete the activity. Or, the assistance of 2 or more helpers is required for the patient to complete the activity. If activity was not attempted, code reason: 7-Patient Refused. 9-Not Applicable-not attempted and the patient did not perform the activity before the current illness, exacerbation or injury. 10-Not Attempted due to Environmental Limitations-(lack of equipment, weather restraints, etc.). 88-Not Attempted due to Medical Conditions or Safety Concerns. Roll Left to Right (QC): 6 Sit to Lying (QC): 6 Sit to Stand (QC): 4 Chair/Fha-bq-Ezgyv Xfer(QC): 4 Car Transfer (QC): 2 Gait Training Does the Patient Walk?: Yes Distance: 400', 200', 120' Walk 10 feet (QC): 4 Walk 50 ft with 2 Turns(QC): 4 Walk 150 ft (QC): 4 Walking 10ft/uneven surface-QC: 2 (x 2 assist) Gait Persons Needed: 1 Gait Assistive Device: FWW Wheelchair Training Does the Pt Use a Wheelchair?: Yes Wheel 50 ft with 2 turns (QC): 4 Wheel 150 ft (QC): 88 Type of Wheelchair: Manual Stair Training #of Steps: 1 1 Step (curb) (QC): 2 (assist x 2 for safety) 4 Steps (QC): 88 12 Steps (QC): 88 Balance Picking up an Object (QC): 3 ADL-Treatment Oral Hygiene (QC): 4 (CGA in stance.) Shower/Bathe Self (QC): 2 (Pt required assistance to maintain sitting balance during task. He required max A with LB due to thoroughness of task, and he dropped soap/wash cloth mulitple times. He was able to wash UEs and chest/abdomen. OT assisted with washing his back.) Upper Body Dressing (QC): 5 (s/u EOB) Lower Body Dressing (QC): 4 (SBA EOB, CGA in stance.) On/Off Footwear (QC): 4 (SBA EOB, pt impulsive, begins reaching under bed from max hip flexion to reach shoes. Pt educated on safety and continuation to think about movements. Pt completes with SBA.) Toileting Hygiene (QC): 7 (Pt declined need to toilet at this time.) Assessment/Plan Assessment and Plan Assess & Plan/Chief Complaint Assessment: Anoxic brain injury Cognitive deficit CAD Constipation severe resolved Urinary retention requiring payton cath now DC Fall to bathroom 5 days ago Plan: IRF protocol BM regimen Cardiology appreciated Dr Gentile appreciated DC Payton and urinating well Dispo discussion tomorrow (1) Anoxic brain injury (2) CAD (coronary artery disease) (3) Malnutrition (4) Urinary retention (5) Constipation (6) Payton catheter in place (7) Hypertension RENEE JARVIS DO Apr 12, 2019 08:54
--- NOTE | 2019-04-12 10:15 | Speech Therapy Daily Note ---
Speech Daily Progress Note Subjective Date Seen by Provider: Apr 12, 2019 Time Seen by Provider: 08:30 Patient was alert, pleasant, and cooperative for all therapy tasks. Patient reported that he is feeling good today and hopeful in going home sometime this week. Objective Patient was re-administered the SLUMS and scored 22/30 which falls within the mild dementia range of cognitive functions. Patient has made good improvement from his initial score of 14/30 and continues to make progress in the areas of cognition. Assessment Assessment Current Status: Good Progress Treatment Plan Continue Plan of Care Speech Short Term Goals Short Term Goals Short Term Goals 1) Patient will complete memory exercises related to his daily living skills with 80% or greater. 2) Patient will complete safety awareness exercises related to his daily living skills with 80% or greater. 3) Patient will complete problem solving exercises related to his daily living skills with 80% or greater. 4) Patient will complete speech production exercises at 80% or greater with minimal cues. Speech Care Home Goals Care Home Goals Patient will improve cognitive-communication and speech exercises necessary for safety and daily living tasks with minimal assist and effective communication. Speech-Plan Patient/Family Goals Patient/Family Goals: Patient reports that he wishes to return home to previous level of mobility and independence. Treatment Plan Speech Therapy Treatment Plan: Continue Plan of Care Treatment Duration: Apr 15, 2019 Frequency: 4 times per week Estimated Hrs Per Day: .5 hour per day Rehab Potential: Fair Barriers to Learning: Mild cognitive deficits Pt/Family Agrees to Plan: Yes Safety Risks/Education Teaching Recipient: Patient Teaching Methods: Demonstration Response to Teaching: Verbalize Understanding Education Topics Provided: Continued utilization of safety awareness strategies Time Speech Therapy Time In: 08:30 Speech Therapy Time Out: 09:00 Total Billed Time: 30 Billed Treatment Time 1, NISA Greco Apr 12, 2019 10:15
--- NOTE | 2019-04-12 10:57 | Physical Therapy Daily Note ---
PT Daily Note-Current Subjective Patient in WC at bedside pre tx, agrees to PT, no complaints of pain. Appearance Patient in bed post tx with nurse call, phone, tray, bed alarm on. Mental Status Patient Orientation: Person, Place, Situation Transfers SCALE: Activities may be completed with or without assistive devices. 8-Vywhuaiabu-nqgkobe completes the activity by him/herself with no assistance from a helper. 5-Set-up or Clean-up Assistance-helper sets up or cleans up; patient completes activity. [place] assists only prior to or following the activity. 4-Supervision or Touching Assistance-helper provides verbal cues and/or touching /steadying and/or contact guard assistance as patient completes activity. Assistance may be provided throughout the activity or intermittently. 3-Partial/Moderate Assistance-helper does LESS THAN HALF the effort. [place] lifts, holds or supports trunk or limbs, but provides less than half the effort. 2-Substantial/Maximal Assistance-helper does MORE THAN HALF the effort. [place] lifts or holds trunk or limbs and provides more than half the effort. 3-Sjxknhuxq-yolocv does ALL the effort. Patient does none of the effort to complete the activity. Or, the assistance of 2 or more helpers is required for the patient to complete the activity. If activity was not attempted, code reason: 7-Patient Refused. 9-Not Applicable-not attempted and the patient did not perform the activity before the current illness, exacerbation or injury. 10-Not Attempted due to Environmental Limitations-(lack of equipment, weather restraints, etc.). 88-Not Attempted due to Medical Conditions or Safety Concerns. Roll Left & Right (QC): 6 Sit to Lying (QC): 6 Lying to Sitting/Side of Bed(Q: 6 Sit to Stand (QC): 4 Chair/Xus-su-Rpkxy Xfer(QC): 4 Toilet Transfer (QC): 4 Car Transfer (QC): 4 Patient performs bed mobility with independence, supine <-> sit with i ndependence, sit <-> stand with SBA, transfers with SBA, car transfer SBA. Patient moves quickly, is impulsive, and needs cues to slow down and for safety. Weight Bearing Right Lower Extremity: Right Full Weight Bearing Left Lower Extremity: Left Full Weight Bearing Gait Training Distance: 400'x2, 120' Walk 10 feet (QC): 4 Walk 50 ft with 2 Turns(QC): 4 Walk 150 ft (QC): 4 Walking 10ft/uneven surface-QC: 4 Gait Persons Needed: 1 Gait Assistive Device: FWW Patient can ambulate 200' with a rolling walker with CGA (including 50' with at least 2 turns of 90 degrees and 10' over an uneven surface). Patient ambulates mostly with SBA but needs CGA when turning due to poor coordination, ataxia, and impaired balance. Wheelchair Training Does the Pt Use a Wheelchair?: No Stair Training Stair Training: Handrails/: 2 handrails #of Steps: 12 1 Step (curb) (QC): 4 4 Steps (QC): 4 12 Steps (QC): 4 Stairs: Pattern: Step to Patient can go up and down 12 steps using 2 handrails with CGA. Patient needs cues for safety and foot placement. Balance Picking up an Object (QC): 4 Exercises Standing: Hamstring curls, Heel/toe raises, 3 way Ex=Flex, Abd, Ext (not extension), Marching, Mini squats Standing Reps: 20 NuStep Minutes: 10 NuStep Workload: 4 Neuromuscular standing on airex without using hands 30 sec x2 Treatments bed mobility and transfers, ambulation, functional strengthening, Assessment Current Status: Fair Progress improving balance and stability during ambulation PT Longterm Goals Longterm Goals PT Longterm Goals Time Frame: May 07, 2019 Roll Left & Right (QC): 6 Sit to Lying (QC): 6 Lying-Sitting on Side/Bed(QC): 6 Sit to Stand (QC): 5 Chair/Mri-uj-Cwnem Xfer(QC): 5 Toilet Transfer (QC): 5 Car Transfer (QC): 5 Does the Patient Walk: Yes Walk 10 feet (QC): 6 Walk 50ft with 2 Turns (QC): 6 Walk 150 ft (QC): 6 Walking 10ft on Uneven Surface: 6 1 Step (curb) (QC): 6 4 Steps (QC): 6 12 Steps (QC): 6 Picking up an Object (QC): 6 PT Plan Problem List Problem List: Activity Tolerance, Functional Strength, Safety, Balance, Gait, Transfer Treatment/Plan Treatment Plan: Continue Plan of Care Treatment Plan: Bed Mobility, Concurrent Therapy, Education, Functional Activity [place], Functional Strength, Group Therapy, Gait, Safety, Therapeutic Exercise, Transfers Treatment Duration: May 07, 2019 Frequency: At least 5 of 7 days/Wk (IRF) Estimated Hrs Per Day: 1.5 hours per day Patient and/or Family Agrees t: Yes Safety Risks/Education Patient Education: Gait Training, Transfer Techniques, Correct Positioning, Safety Issues Teaching Recipient: Patient Teaching Methods: Demonstration, Discussion Response to Teaching: Reinforcement Needed Time/GCodes Time In: 1000 Time Out: 1100 Total Billed Treatment Time: 60 Total Billed Treatment 1 visit GT 20' EX 40' STEW CRAIG PT Apr 12, 2019 10:56
--- NOTE | 2019-04-12 11:39 | Occupational Ther Daily Note ---
OT Current Status-Daily Note Subjective Pt seen in bed, agreeable to therapy tx. Pt denies pain, present in room. Mental Status/Objective Patient Orientation: Normal For Age ADL-Treatment Therapy Code Descriptions/Definitions Functional [place] Measure: 0=Not Assessed/NA 4=Minimal Assistance 1=Total Assistance 5=Supervision or Setup 2=Maximal Assistance 6=Modified [place] 3=Moderate Assistance 7=Complete IndependenceSCALE: Activities may be completed with or without assistive devices. 7-Tdbhrhmfmc-ojwcrul completes the activity by him/herself with no assistance from a helper. 5-Set-up or Clean-up Assistance-helper sets up or cleans up; patient completes activity. [place] assists only prior to or following the activity. 4-Supervision or Touching Assistance-helper provides verbal cues and/or touching/steadying and/or contact guard assistance as patient completes activity. Assistance may be provided throughout the activity or intermittently. 3-Partial/Moderate Assistance-helper does LESS THAN HALF the effort. [place] lifts, holds or supports trunk or limbs, but provides less than half the effort. 2-Substantial/Maximal Assistance-helper does MORE THAN HALF the effort. [place] lifts or holds trunk or limbs and provides more than half the effort. 8-Bqopqytvw-zvaiwh does ALL the effort. Patient does none of the effort to complete the activity. Or, the assistance of 2 or more helpers is required for the patient to complete the activity. If activity was not attempted, code reason: 7-Patient Refused. 9-Not Applicable-not attempted and the patient did not perform the activity before the current illness, exacerbation or injury. 10-Not Attempted due to Environmental Limitations-(lack of equipment, weather restraints, etc.). 88-Not Attempted due to Medical Conditions or Safety Concerns. Other Treatment Pt denies restroom needs at this time. Pt supine to sit with SBA, transfers without AE from bed to w/c next to bed. Pt completes w/c mob to therapy gym, completes 5 min of standing with bilateral hands manipulating bolts. Pt requires cues for reminders to utilize L hand/ fingers for manipulation. pt completes with increased time with L hand, drops 2/8 bolts during activity. Returns bolts back to holes, SBA in stance during time. Pt picks medium sized objects from floor with SBA, utilizes one hand on walker to stabilize. Pt returns to room in w/c, transfers to bed with SBA, bed alarm set, all needs met, call light in reach. Education OT Patient Education: Correct positioning, Exercise program, Home exercise program, Modified ADL techniques, Safety issues, Transfer techniques Teaching Recipient: Patient Teaching Methods: Demonstration, Discussion Response to Teaching: Verbalize Understanding, Return Demonstration, Reinforcement Needed OT Short Term Goals Short Term Goals Time Frame: Apr 11, 2019 Eatin Oral hygiene: 4 Toileting hygiene: 3 Shower/bathe self: 3 Upper body dressin Lower body dressin Putting on/taking off footwear: 4 OT Residential Goals System Operation Superintendent Goals Time Frame: Apr 25, 2019 Eating (QC): 6 Oral Hygiene (QC): 5 Toileting Hygiene (QC): 6 Shower/Bathe Self (QC): 4 Upper Body Dressing (QC): 4 Lower Body Dressing (QC): 4 On/Off Footwear (QC): 4 Additional Goals: 1-Demonstrate ADL Tasks, 2-Verbalize Understanding, 3- ImproveStrength/[place] 1=Demonstrate adherence to instructed precautions during ADL tasks. 2=Patient will verbalize/demonstrate understanding of assistive devices/modifications for ADL. 3=Patient will improve strength/tolerance for activity to enable patient to perform ADL's. OT Education/Plan Problem List/Assessment Assessment: Decreased Activ Tolerance, Decreased Safety Aware, Impaired Funct Balance, Impaired I ADL's, Impaired Self-Care Skills Discharge Recommendations Plan/Recommendations: Continue POC Treatment Plan/Plan of Care Treatment,Training & Education: Yes Patient would benefit from OT for education, treatment and training to promote independence in ADL's, mobility, safety and/or upper extremity function for ADL's. Plan of Care: ADL Retraining, Caregiver Training, Functional Mobility, Group Exercise/Act as Ind, UE Funct Exercise/Act Treatment Duration: Apr 25, 2019 Frequency: At least 5 of 7 days/Wk (IRF) Estimated Hrs Per Day: 1.5 hours per day Agreement: Yes Rehab Potential: Fair Time/GCodes Start Time: 11:15 Stop Time: 11:30 Total Time Billed (hr/min): 15 Billed Treatment Time 1, EX (15) WANDA CROSS OTR Apr 12, 2019 11:39
--- NOTE | 2019-04-12 11:56 | NUR ---
"RD ASSESSMENT PMHx: HTN; HLD; CAD; GERD PT INTERACTION: Pt was awake and pleasant during nutrition follow-up. Pt states he has been eating well since last assessment. Note avg PO intake of 71% x4d, per chart review. Pt states no issues with n/v/c/d since last assessment. Note last BM was 04/09 and pt currently on bowel regimen of colace BID; senna BID; bisacodyl qd; and miralax qd, per chart review. ABNORMAL NUTRITION-RELATED LAB VALUES LOW: HIGH: Cl 108; alkphos 151 Est. kcal needs: 1744-4272 kcal | 25-30 kcal/kg Est. Pro needs: 63-76 g Pro | 1.0-1.2 g Pro/kg PES STATEMENT: Given pt's PO intake, no nutrition diagnosis at this time (NO-1.1) INTERVENTION: Continue with current diet order of Regular diet. Will continue to follow and reassess as pt needs and status change. MONITOR/EVALUATE: PO Intake; Plan of Care; Hydration Status; Weight Status; Lab Values Corrie Manjarrez, MS, RD, LD"
--- NOTE | 2019-04-12 12:04 | Occupational Ther Daily Note ---
OT Current Status-Daily Note Subjective Pt in bed, agrees to therapy. No c/o pain. ADL-Treatment Pt requests shower this morning. Supine to sit without assist. Gait to restroom with FWW. Pt transferred to shower bench with close supervision for balance using grab bar for safety. Pt doffed clothing with SBA. Seated bathing completed using hand held shower. Upper body bathing completed with SBA. Pt washed lower body with close supervision for balance while seated. Don pullover shirt with set up. Pt able to thread bilateral LE into underwear and pants with SBA. Stood with close supervision for balance during pant hike using FWW. Don bilateral socks with SBA. Pt completed grooming tasks while seated at sink. Pt brushed teeth and shaved with set up. Therapy Code Descriptions/Definitions Functional [place] Measure: 0=Not Assessed/NA 4=Minimal Assistance 1=Total Assistance 5=Supervision or Setup 2=Maximal Assistance 6=Modified [place] 3=Moderate Assistance 7=Complete IndependenceSCALE: Activities may be completed with or without assistive devices. 9-Mbanjujlfy-vwicbhx completes the activity by him/herself with no assistance from a helper. 5-Set-up or Clean-up Assistance-helper sets up or cleans up; patient completes activity. [place] assists only prior to or following the activity. 4-Supervision or Touching Assistance-helper provides verbal cues and/or touching/steadying and/or contact guard assistance as patient completes activity. Assistance may be provided throughout the activity or intermittently. 3-Partial/Moderate Assistance-helper does LESS THAN HALF the effort. [place] lifts, holds or supports trunk or limbs, but provides less than half the effort. 2-Substantial/Maximal Assistance-helper does MORE THAN HALF the effort. [place] lifts or holds trunk or limbs and provides more than half the effort. 4-Fkmoxbwpj-czbxtn does ALL the effort. Patient does none of the effort to complete the activity. Or, the assistance of 2 or more helpers is required for the patient to complete the activity. If activity was not attempted, code reason: 7-Patient Refused. 9-Not Applicable-not attempted and the patient did not perform the activity before the current illness, exacerbation or injury. 10-Not Attempted due to Environmental Limitations-(lack of equipment, weather restraints, etc.). 88-Not Attempted due to Medical Conditions or Safety Concerns. Oral Hygiene (QC): 5 Shower/Bathe Self (QC): 4 Upper Body Dressing (QC): 5 Lower Body Dressing (QC): 4 On/Off Footwear: 4 Other Treatment Pt performed gait to therapy gym with FWW with CGA for balance and safety. Pt completed fine motor task with small pegs to increase coordination for functional tasks. Putt activity with left hand to increase strength and manipulation skills. Pt able to remove small beads from mild resistance putty with increased time. Pt returned to room, sitting in w/c with RN present after session. OT Short Term Goals Short Term Goals Time Frame: Apr 11, 2019 Eatin Oral hygiene: 4 Toileting hygiene: 3 Shower/bathe self: 3 Upper body dressin Lower body dressin Putting on/taking off footwear: 4 OT Alf Goals Alf Goals Time Frame: Apr 25, 2019 Eating (QC): 6 Oral Hygiene (QC): 5 Toileting Hygiene (QC): 6 Shower/Bathe Self (QC): 4 Upper Body Dressing (QC): 4 Lower Body Dressing (QC): 4 On/Off Footwear (QC): 4 Additional Goals: 1-Demonstrate ADL Tasks, 2-Verbalize Understanding, 3- ImproveStrength/[place] 1=Demonstrate adherence to instructed precautions during ADL tasks. 2=Patient will verbalize/demonstrate understanding of assistive devices/modifications for ADL. 3=Patient will improve strength/tolerance for activity to enable patient to perform ADL's. OT Education/Plan Discharge Recommendations Plan/Recommendations: Continue POC Treatment Plan/Plan of Care Patient would benefit from OT for education, treatment and training to promote independence in ADL's, mobility, safety and/or upper extremity function for ADL's. Plan of Care: ADL Retraining, Caregiver Training, Functional Mobility, Group Exercise/Act as Ind, UE Funct Exercise/Act Treatment Duration: Apr 25, 2019 Frequency: At least 5 of 7 days/Wk (IRF) Estimated Hrs Per Day: 1.5 hours per day Agreement: Yes Rehab Potential: Fair Time/GCodes Start Time: 09:00 Stop Time: 10:00 Total Time Billed (hr/min): 60 Billed Treatment Time 1 visit, ADLx3(40minutes), FA(20minutes) BOB GOMEZ OT Apr 12, 2019 12:04
--- NOTE | 2019-04-12 13:27 | Physical Therapy Daily Note ---
PT Daily Note-Current Subjective Patient in bathroom pre tx, agrees to PT, has no complaints of pain. Appearance Patient in bed post tx with nurse call, phone, tray, bed alarm on, in room. Mental Status Patient Orientation: Person, Place, Situation Transfers SCALE: Activities may be completed with or without assistive devices. 0-Fnoxfgkeeq-nxnpdlv completes the activity by him/herself with no assistance from a helper. 5-Set-up or Clean-up Assistance-helper sets up or cleans up; patient completes activity. [place] assists only prior to or following the activity. 4-Supervision or Touching Assistance-helper provides verbal cues and/or touching/steadying and/or contact guard assistance as patient completes activity. Assistance may be provided throughout the activity or intermittently. 3-Partial/Moderate Assistance-helper does LESS THAN HALF the effort. [place] lifts, holds or supports trunk or limbs, but provides less than half the effort. 2-Substantial/Maximal Assistance-helper does MORE THAN HALF the effort. [place] lifts or holds trunk or limbs and provides more than half the effort. 9-Hmvaigdgq-lvrvrk does ALL the effort. Patient does none of the effort to complete the activity. Or, the assistance of 2 or more helpers is required for the patient to complete the activity. If activity was not attempted, code reason: 7-Patient Refused. 9-Not Applicable-not attempted and the patient did not perform the activity before the current illness, exacerbation or injury. 10-Not Attempted due to Environmental Limitations-(lack of equipment, weather restraints, etc.). 88-Not Attempted due to Medical Conditions or Safety Concerns. Roll Left & Right (QC): 6 Sit to Lying (QC): 6 Sit to Stand (QC): 4 Chair/Pbr-ne-Obaln Xfer(QC): 4 Weight Bearing Right Lower Extremity: Right Full Weight Bearing Left Lower Extremity: Left Full Weight Bearing Gait Training Distance: 600', 120' Walk 10 feet (QC): 4 Walk 50 ft with 2 Turns(QC): 4 Walk 150 ft (QC): 4 Gait Assistive Device: FWW Close guarding when turning, patient can move fast with turning, is unsteady often when turning Exercises LAQ alternating for 5 min with 2# ankle weights Treatments bed mobility and transfers, ambulation, LE exercise Assessment Current Status: Fair Progress improving endurance PT Senior Living Goals Senior Living Goals PT Senior Living Goals Time Frame: May 07, 2019 Roll Left & Right (QC): 6 Sit to Lying (QC): 6 Lying-Sitting on Side/Bed(QC): 6 Sit to Stand (QC): 5 Chair/Nnh-yp-Wolef Xfer(QC): 5 Toilet Transfer (QC): 5 Car Transfer (QC): 5 Does the Patient Walk: Yes Walk 10 feet (QC): 6 Walk 50ft with 2 Turns (QC): 6 Walk 150 ft (QC): 6 Walking 10ft on Uneven Surface: 6 1 Step (curb) (QC): 6 4 Steps (QC): 6 12 Steps (QC): 6 Picking up an Object (QC): 6 PT Plan Problem List Problem List: Activity Tolerance, Functional Strength, Safety, Balance, Gait, Transfer Treatment/Plan Treatment Plan: Continue Plan of Care Treatment Plan: Bed Mobility, Concurrent Therapy, Education, Functional Activity Hayder, Functional Strength, Group Therapy, Gait, Safety, Therapeutic Exercise, Transfers Treatment Duration: May 07, 2019 Frequency: At least 5 of 7 days/Wk (IRF) Estimated Hrs Per Day: 1.5 hours per day Patient and/or Family Agrees t: Yes Safety Risks/Education Patient Education: Gait Training, Transfer Techniques, Correct Positioning, Safety Issues Teaching Recipient: Patient Teaching Methods: Demonstration, Discussion Response to Teaching: Reinforcement Needed Time/GCodes Time In: 1300 Time Out: 1330 Total Billed Treatment Time: 30 Total Billed Treatment 1 visit FA 30' STEW CRAIG PT Apr 12, 2019 13:27
[2019-04-12 16:50] VITALS: BP 114/73
[2019-04-12] MEDS: ENOXAPARIN 40 MG/0.4 ML (LOVENOX) SYR SC SCH (20:10)
[2019-04-12] MEDS: polyethylene glycoL POWDER 17 GM (MIRALAX) PACK PO SCH (20:11)
[2019-04-13 05:19] VITALS: BP 109/72
[2019-04-13] MEDS: CARVEDILOL 3.125 MG (COREG) TABLET PO SCH ×2 (06:04→18:02)
[2019-04-13] MEDS: DOCUSATE SODIUM 100 MG (COLACE) CAP PO SCH ×2 (07:46→20:21)
[2019-04-13] MEDS: SENNA W/DOCUSATE (SENOKOT S) TABLET PO SCH ×2 (07:47→20:20)
[2019-04-13] MEDS: LACTULOSE SYRUP 10GM/15ML (ENULOSE) 30ML UDC PO SCH ×2 (07:47→20:21)
[2019-04-13] MEDS: BISACODYL 10 MG SUPP (DULCOLAX) PR SCH (07:47)
[2019-04-13] MEDS: TAMSULOSIN 0.4 MG (FLOMAX) CAP PO SCH ×2 (08:09→20:17)
[2019-04-13] MEDS: CLOPIDOGREL 75 MG (PLAVIX) TABLET PO SCH (08:09)
[2019-04-13] MEDS: lisINopril 5 MG (PRINIVIL) TABLET PO SCH (08:09)
[2019-04-13] MEDS: ASPIRIN 81 MG CHEW (CHILDREN'S ASA) PO SCH (08:09)
[2019-04-13] MEDS: FLUTICASONE NASAL SPRAY (FLONASE) 16 GM BTL NS SCH (08:10)
--- NOTE | 2019-04-13 09:26 | Cardiology Progress Note ---
Subjective Date Seen by Provider: Apr 13, 2019 Time Seen by Provider: 09:25 Subjective/Events-last exam Patient is with PT, no new complaints. Denies any chest pain or dyspnea. Review of Systems General: No Chills, No Night Sweats, No Fatigue, No Malaise, No Appetite, No Ot her HEENT: No Head Aches, No Visual Changes, No Eye Pain, No Ear Pain, No Dysphasia, No Sinus Congestion, No Post Nasal Drip, No Sore Throat, No Other Pulmonary: No Dyspnea, No Cough, No Pleuritic Chest Pain, No Other Cardiovascular: No: Chest Pain, Palpitations, Orthopnea, Paroxysmal Noc. Dyspnea, Edema, Lt Headedness, Other Objective-Cardiology Exam Last Set of Vital Signs Vital Signs 04/13/19 04/13/19 05:19 08:40 Temp 36.6 Pulse 75 Resp 16 B/P (MAP) 109/72 (84) Pulse Ox 97 O2 Delivery Room Air Capillary Refill : Less Than 3 SecondsLess Than 3 Seconds I&O Intake and Output 04/13/19 00:00 Intake Total 1600 ml Balance 1600 ml Intake Oral 1600 ml # Voids 6 # Bowel Movements 2 General: Alert, Oriented X3, Cooperative HEENT: Atraumatic, PERRLA Neck: Supple, No JVD, No Thyromegaly Lungs: Clear to Auscultation, Normal Air Movement Heart: Regular Rate, Normal S1, Normal S2, No Murmurs Abdomen: Normal Bowel Sounds, Soft, No Tenderness, No Hepatosplenomegaly, No Masses Extremities: No Clubbing, No Cyanosis, No Edema, Normal Pulses, No Tenderness/Swelling Skin: No Rashes, No Breakdown, No Significant Lesion Neuro: Normal Speech, Cranial Nerves 3-12 NL Psych/Mental Status: Mental Status NL, Mood NL A/P-Cardiology Admission Diagnosis s/p cardiac arrest STEMI CAD HTN HLP Assessment/Plan CAD, s/p cardiac arrest on 03/18/2019 with STEMI, underwent emergent cardiac catheterization done at [place] demonstrating 100% occlusion of cx, critical stenosis of LAD. Underwent Synergy [id number] stent to te mid circumflex and synergy 3.0x16mm stent to the proximal circumflex. Synergy 2.5 x20mm to mid LAD and Syncergy 2.75x 24mm to prox LAD. Currently on Plavix and ASA, continue to monitor Cardiomyopathy, acute left ventricular systolic dysfunction secondary to acute myocardial infarction, echocardiogram showed normal left ventricular size and systolic function, ejection fraction 50-55 percent, mild hypokinesia at the apical lateral wall, PA pressure 25 mmHg. Continue to monitor Bilateral pneumothorax, s/p CT placement, resolved, chest tubes discontinued Hypertension, currently borderline hypotensive. Maintained on Coreg 3.125mg BID and Lisinopril 5mg daily. Continue to monitor. Hyperlipidemia, maintained on stating, continue to monitor. Hx of RBBB. Constipation,resolved, management per PCP Urinary retention, resolved, payton d/c'd. Tobaccoism, patient chewed tobacco. Educated on avoiding tobacco product Arthritis, management per PCP Nonobstructive carotid artery stenosis-last carotid duplex done November 2015. Continue to monitor. Strong family history of heart disease Patient was seen and evaluated with Corine, examination performed, management plan was discussed, agree with the current scribed note, I made few changes to the note using Italic font Patient is feeling well, no new complaint. Continue on current medication Okay for discharge from cardiology standpoint. Next and continue to monitor blood pressure and lipids Clinical Quality Measures DVT/VTE Risk/Contraindication: Risk Factor Score Per Nursin RFS Level Per Nursing on Admit: 4+=Very High CORINE QUINN Apr 13, 2019 09:26 KIRIT CONTRERAS MD Apr 13, 2019 15:49
--- NOTE | 2019-04-13 09:36 | PM&R Progress Note ---
Subjective HPI/CC On Admission Date Seen by Provider: Apr 13, 2019 Time Seen by Provider: 09:30 Subjective/Events-last exam Constantly wants to go home Team meeting today to decide a disposition and DC date Doing well overall Chest tube sites on the left are a little bit moist, will allow to open to air and he no longer needs any pain medication for that Bowels are moving Flomax working very well for him, no other urinary retention issues Conferred with RN. Reviewed therapy notes. Checked meds and labs. Review of Systems General: Fatigue Neurological: Weakness, Numbness, Incoordination, Confusion Objective Exam Vital Signs Vital Signs Date Time Temp Pulse Resp B/P (MAP) Pulse Ox O2 Delivery O2 Flow Rate FiO2 04/13/19 18:12 37.4 88 20 111/67 (82) 95 Room Air Capillary Refill : Less Than 3 SecondsLess Than 3 Seconds General Appearance: No Apparent Distress, WD/WN, Chronically ill, Thin HEENT: PERRL/EOMI, Normal ENT Inspection, Pharynx Normal Neck: Full Range of Motion, Normal Inspection, Non Tender, Supple, Carotid Bruit Respiratory: Chest Non Tender, Lungs Clear, Normal Breath Sounds, No Accessory Muscle Use, No Respiratory Distress Cardiovascular: Regular Rate, Rhythm, No Edema, No Gallop, No JVD, No Murmur, Normal Peripheral Pulses Gastrointestinal: Normal Bowel Sounds, No Organomegaly, No Pulsatile Mass, Non Tender, Soft Back: Normal Inspection, No CVA Tenderness, No Vertebral Tenderness Extremity: Normal Capillary Refill, Normal Inspection, Normal Range of Motion, Non Tender, No Calf Tenderness, No Pedal Edema Neurologic/Psychiatric: Alert, Oriented x3, No Motor/Sensory Deficits, Normal Mood/Affect, Disoriented (subtle slow responses and recall), Motor Weakness (generalized all extremities, impulsive) Skin: Normal Color, Warm/Dry Lymphatic: No Adenopathy Results/Procedures Lab Patient resulted labs reviewed. FIM Transfers Therapy Code Descriptions/Definitions Functional [place] Measure: 0=Not Assessed/NA 4=Minimal Assistance 1=Total Assistance 5=Supervision or Setup 2=Maximal Assistance 6=Modified [place] 3=Moderate Assistance 7=Complete IndependenceSCALE: Activities may be completed with or without assistive devices. 6-Fsrxvtqotr-wfizygm completes the activity by him/herself with no assistance from a helper. 5-Set-up or Clean-up Assistance-helper sets up or cleans up; patient completes activity. [place] assists only prior to or following the activity. 4-Supervision or Touching Assistance-helper provides verbal cues and/or touching/steadying and/or contact guard assistance as patient completes activity. Assistance may be provided throughout the activity or intermittently. 3-Partial/Moderate Assistance-helper does LESS THAN HALF the effort. [place] lifts, holds or supports trunk or limbs, but provides less than half the effort. 2-Substantial/Maximal Assistance-helper does MORE THAN HALF the effort. [place] lifts or holds trunk or limbs and provides more than half the effort. 7-Wjdeejpft-jllnst does ALL the effort. Patient does none of the effort to complete the activity. Or, the assistance of 2 or more helpers is required for the patient to complete the activity. If activity was not attempted, code reason: 7-Patient Refused. 9-Not Applicable-not attempted and the patient did not perform the activity before the current illness, exacerbation or injury. 10-Not Attempted due to Environmental Limitations-(lack of equipment, weather restraints, etc.). 88-Not Attempted due to Medical Conditions or Safety Concerns. Roll Left to Right (QC): 6 Sit to Lying (QC): 6 Sit to Stand (QC): 4 Chair/Xgy-kz-Orwcf Xfer(QC): 4 Car Transfer (QC): 4 Gait Training Does the Patient Walk?: Yes Distance: 600', 120' Walk 10 feet (QC): 4 Walk 50 ft with 2 Turns(QC): 4 Walk 150 ft (QC): 4 Walking 10ft/uneven surface-QC: 4 Gait Persons Needed: 1 Gait Assistive Device: FWW Wheelchair Training Does the Pt Use a Wheelchair?: No Wheel 50 ft with 2 turns (QC): 4 Wheel 150 ft (QC): 88 Type of Wheelchair: Manual Stair Training Stair Training: Handrails/: 2 handrails #of Steps: 12 1 Step (curb) (QC): 4 4 Steps (QC): 4 12 Steps (QC): 4 Stairs: Pattern: Step to Balance Picking up an Object (QC): 4 ADL-Treatment Oral Hygiene (QC): 5 Shower/Bathe Self (QC): 4 Upper Body Dressing (QC): 5 Lower Body Dressing (QC): 4 On/Off Footwear (QC): 4 Toileting Hygiene (QC): 7 (Pt declined need to toilet at this time.) Assessment/Plan Assessment and Plan Assess & Plan/Chief Complaint Assessment: Anoxic brain injury Cognitive deficit improved since admit CAD Constipation severe resolved Urinary retention requiring payton cath now DC Fall to bathroom 5 days ago Plan: IRF protocol BM regimen Cardiology appreciated Dr Gentile appreciated DC Payton and urinating well Dispo Thursday home (1) Anoxic brain injury (2) CAD (coronary artery disease) (3) Malnutrition (4) Urinary retention (5) Constipation (6) Payton catheter in place (7) Hypertension RENEE JARVIS DO Apr 13, 2019 09:35
--- NOTE | 2019-04-13 10:12 | Occupational Ther Daily Note ---
OT Current Status-Daily Note Subjective Pt resting in bed, agrees to therapy. Has no reports of pain. ADL-Treatment Pt declined bathing or dressing since he had a shower yesterday. Supine to sit without assist. Pt donned shoes with set up while seated EOB. Therapy Code Descriptions/Definitions Functional [place] Measure: 0=Not Assessed/NA 4=Minimal Assistance 1=Total Assistance 5=Supervision or Setup 2=Maximal Assistance 6=Modified [place] 3=Moderate Assistance 7=Complete IndependenceSCALE: Activities may be completed with or without assistive devices. 9-Ybzhqfjfmo-ambxzrl completes the activity by him/herself with no assistance from a helper. 5-Set-up or Clean-up Assistance-helper sets up or cleans up; patient completes activity. [place] assists only prior to or following the activity. 4-Supervision or Touching Assistance-helper provides verbal cues and/or touching/steadying and/or contact guard assistance as patient completes activity. Assistance may be provided throughout the activity or intermittently. 3-Partial/Moderate Assistance-helper does LESS THAN HALF the effort. [place] lifts, holds or supports trunk or limbs, but provides less than half the effort. 2-Substantial/Maximal Assistance-helper does MORE THAN HALF the effort. [place] lifts or holds trunk or limbs and provides more than half the effort. 2-Xrhovnrki-skfieo does ALL the effort. Patient does none of the effort to complete the activity. Or, the assistance of 2 or more helpers is required for the patient to complete the activity. If activity was not attempted, code reason: 7-Patient Refused. 9-Not Applicable-not attempted and the patient did not perform the activity before the current illness, exacerbation or injury. 10-Not Attempted due to Environmental Limitations-(lack of equipment, weather restraints, etc.). 88-Not Attempted due to Medical Conditions or Safety Concerns. On/Off Footwear: 5 Other Treatment Gait to therapy gym with FWW, cues for safety. Pt completed grooved pegboard task with bilateral hands to increase fine motor coordination and manipulation skills needed for functional task completion. Pt has mildly decreased coordination with left hand, but is able to complete task with increased time. Standing cantu bag toss completed with bilateral UE to increase standing balance and UE activity. Pt able to complete task with CGA for balance. Pt completed ball catch/toss while standing to promote increased standing balance and bilateral UE coordination. Pt is slightly impulsive, requires cues for safety. Arm arc activity with bilateral UE while standing to increase ROM and activity tolerance while standing. Pt completed task with SBA for balance. Pt completed arm bike x10 minutes to increase overall strength and activity tolerance needed for functional task completion. Pt performed activity with mild resistance and slow pace. Graded clothespins task with left hand to increase strength. Pt returned to room, resting in bed with needs met, bed alarm on after session. Education OT Patient Education: Safety issues Teaching Recipient: Patient Teaching Methods: Discussion Response to Teaching: Verbalize Understanding, Reinforcement Needed OT Short Term Goals Short Term Goals Time Frame: Apr 11, 2019 Eatin Oral hygiene: 4 Toileting hygiene: 3 Shower/bathe self: 3 Upper body dressin Lower body dressin Putting on/taking off footwear: 4 OT Automatic Trimming Sewer Goals Automatic Trimming Sewer Goals Time Frame: Apr 25, 2019 Eating (QC): 6 Oral Hygiene (QC): 5 Toileting Hygiene (QC): 6 Shower/Bathe Self (QC): 4 Upper Body Dressing (QC): 4 Lower Body Dressing (QC): 4 On/Off Footwear (QC): 4 Additional Goals: 1-Demonstrate ADL Tasks, 2-Verbalize Understanding, 3- ImproveStrength/[place]der 1=Demonstrate adherence to instructed precautions during ADL tasks. 2=Patient will verbalize/demonstrate understanding of assistive devices/modifications for ADL. 3=Patient will improve strength/tolerance for activity to enable patient to perform ADL's. OT Education/Plan Discharge Recommendations Plan/Recommendations: Continue POC Treatment Plan/Plan of Care Patient would benefit from OT for education, treatment and training to promote independence in ADL's, mobility, safety and/or upper extremity function for ADL's. Plan of Care: ADL Retraining, Caregiver Training, Functional Mobility, Group Exercise/Act as Ind, UE Funct Exercise/Act Treatment Duration: Apr 25, 2019 Frequency: At least 5 of 7 days/Wk (IRF) Estimated Hrs Per Day: 1.5 hours per day Agreement: Yes Rehab Potential: Fair Time/GCodes Start Time: 08:00 Stop Time: 09:00 Total Time Billed (hr/min): 60 Billed Treatment Time 1 visit, FAx3(40minutes), EX(20minutes) BOB GOMEZ OT Apr 13, 2019 10:12
--- NOTE | 2019-04-13 11:01 | Physical Therapy Daily Note ---
PT Daily Note-Current Subjective Agrees to Rx and states "Im ready to get out of here"! Pain Location: No Pain Reported Mental Status Patient Orientation: Normal For Age Transfers SCALE: Activities may be completed with or without assistive devices. 1-Dupzljgyuj-cqibfxs completes the activity by him/herself with no assistance from a helper. 5-Set-up or Clean-up Assistance-helper sets up or cleans up; patient completes activity. [place] assists only prior to or following the activity. 4-Supervision or Touching Assistance-helper provides verbal cues and/or touching/steadying and/or contact guard assistance as patient completes activity. Assistance may be provided throughout the activity or intermittently. 3-Partial/Moderate Assistance-helper does LESS THAN HALF the effort. [place] lifts, holds or supports trunk or limbs, but provides less than half the effort. 2-Substantial/Maximal Assistance-helper does MORE THAN HALF the effort. [place] lifts or holds trunk or limbs and provides more than half the effort. 4-Oxlsbhzqs-hdxxsh does ALL the effort. Patient does none of the effort to complete the activity. Or, the assistance of 2 or more helpers is required for the patient to complete the activity. If activity was not attempted, code reason: 7-Patient Refused. 9-Not Applicable-not attempted and the patient did not perform the activity before the current illness, exacerbation or injury. 10-Not Attempted due to Environmental Limitations-(lack of equipment, weather restraints, etc.). 88-Not Attempted due to Medical Conditions or Safety Concerns. Roll Left & Right (QC): 6 Sit to Lying (QC): 6 Lying to Sitting/Side of Bed(Q: 6 Sit to Stand (QC): 6 Chair/Nrz-sf-Ybsmb Xfer(QC): 6 Car Transfer (QC): 6 Weight Bearing Right Lower Extremity: Right Full Weight Bearing Left Lower Extremity: Left Full Weight Bearing Gait Training Does the Patient Walk?: Yes Walk 10 feet (QC): 5 Walk 50 ft with 2 Turns(QC): 5 Walk 150 ft (QC): 5 Gait Persons Needed: 1 Gait Assistive Device: FWW pt. with some swerving and narrow [place] but no bharat LOB. Pt. tested at 51/56 on GARZA however this [employer] notes instability in gait and did not upgrade pt to up ad lorenzo as he still makes impulsive movements at times with poor safety awareness. attempted gait with hurry type cane with pt. having great difficulty with sequence and this was discontinued Balance Special Test Comments tested 51/56 on GARZA see details in hard chart Exercises Supine Ex: Bridging, Ankle pumps, Quad Set, Rolling, Glut sets, Heel Slides, Short Arc Quads, Scooting, Straight leg raise, Hip abd/add (side and sup) Supine Reps: 20 prone, quadruped and attempts at tall on knees with LOB several attempts Assessment Current Status: Good Progress safer with FWW and supervision PT Chcf Goals Foundation Drill Operator Goals PT Foundation Drill Operator Goals Time Frame: May 07, 2019 Roll Left & Right (QC): 6 Sit to Lying (QC): 6 Lying-Sitting on Side/Bed(QC): 6 Sit to Stand (QC): 5 Chair/Rxk-ei-Hholf Xfer(QC): 5 Toilet Transfer (QC): 5 Car Transfer (QC): 5 Does the Patient Walk: Yes Walk 10 feet (QC): 6 Walk 50ft with 2 Turns (QC): 6 Walk 150 ft (QC): 6 Walking 10ft on Uneven Surface: 6 1 Step (curb) (QC): 6 4 Steps (QC): 6 12 Steps (QC): 6 Picking up an Object (QC): 6 PT Plan Treatment/Plan Treatment Plan: Continue Plan of Care Treatment Plan: Bed Mobility, Concurrent Therapy, Education, Functional Activity [place], Functional Strength, Group Therapy, Gait, Safety, Therapeutic Exercise, Transfers Treatment Duration: May 07, 2019 Frequency: At least 5 of 7 days/Wk (IRF) Estimated Hrs Per Day: 1.5 hours per day Patient and/or Family Agrees t: Yes Safety Risks/Education Patient Education: Gait Training, Transfer Techniques, Correct Positioning, Disease Process, Safety Issues Teaching Recipient: Patient Teaching Methods: Demonstration, Discussion Response to Teaching: Verbalize Understanding, Unable to Return Demonstration (cane gait), Return Demonstration, Reinforcement Needed Time/GCodes Time In: 1000 Time Out: 1100 Total Billed Treatment Time: 60 Total Billed Treatment 1,NM25m,GT20m,EX15m MANAN OCONNELL [employer] Apr 13, 2019 11:01
--- OUTSIDE RECORDS SUMMARY | 2019-04-13 11:57 | XMS REPORT | Continuity of Care Document ---
Author Organization Unknown Address Unknown Phone Unavailable Allergies Active Description Code Type Severity Reaction Onset Reported/Identified Relationship to Patient Clinical Status Yes No Allergy Information Available [id number] Drug Allergy Unknown N/A 020 Yes No Known Drug Allergies [id number] Drug Allergy Unknown N/A 04/08/2019 Medications There is no data. Problems Date Dx Coded Attending Type Code Diagnosis Diagnosed By 12/11/2015 KIRIT CONTRERAS MD Ot E78. 5 HYPERLIPIDEMIA, UNSPECIFIED 12/11/2015 KIRIT CONTRERAS MD Ot I10 ESSENTIAL (PRIMARY) HYPERTENSION 12/11/2015 KIRIT CONTRERAS MD Ot R06. 02 SHORTNESS OF BREATH 12/11/2015 KIRIT CONTRERAS MD Ot Z72. 0 TOBACCO USE 12/11/2015 KIRIT CONTRERAS MD Ot Z82. 49 FAMILY HX OF ISCHEM HEART DIS AND OTH DI 12/12/2015 KIRIT CONTRERAS MD Ot E78. 5 HYPERLIPIDEMIA, UNSPECIFIED 12/12/2015 KIRIT CONTRERAS MD Ot I10 ESSENTIAL (PRIMARY) HYPERTENSION 12/12/2015 KIRIT CONTRERAS MD Ot R06. 02 SHORTNESS OF BREATH 12/12/2015 KIRIT CONTRERAS MD Ot Z72. 0 TOBACCO USE 12/12/2015 KIRIT CONTRERAS MD Ot Z82. 49 FAMILY HX OF ISCHEM HEART DIS AND OTH DI 12/20/2015 KIRIT CONTRERAS MD Ot E78. 5 HYPERLIPIDEMIA, UNSPECIFIED 12/20/2015 KIRIT CONTRERAS MD Ot I10 ESSENTIAL (PRIMARY) HYPERTENSION 12/20/2015 KIRIT CONTRERAS MD Ot R06. 02 SHORTNESS OF BREATH 12/20/2015 KIRIT CONTRERAS MD Ot Z72. 0 TOBACCO USE 12/20/2015 KIRIT CONTRERAS MD Ot Z82. 49 FAMILY HX OF ISCHEM HEART DIS AND OTH DI 12/20/2015 KIRIT CONTRERAS MD Ot E78. 5 HYPERLIPIDEMIA, UNSPECIFIED 12/20/2015 KIRIT CONTRERAS MD Ot I10 ESSENTIAL (PRIMARY) HYPERTENSION 12/20/2015 KIRIT CONTRERAS MD Ot R06. 02 SHORTNESS OF BREATH 12/20/2015 KIRIT CONTRERAS MD Ot Z72. 0 TOBACCO USE 12/20/2015 KIRIT CONTRERAS MD Ot Z82. 49 FAMILY HX OF ISCHEM HEART DIS AND OTH DI 12/26/2015 KIRIT CONTRERAS MD Ot E78. 5 HYPERLIPIDEMIA, UNSPECIFIED 12/26/2015 KIRIT CONTRERAS MD Ot I10 ESSENTIAL (PRIMARY) HYPERTENSION 12/26/2015 KIRIT CONTRERAS MD Ot R06. 02 SHORTNESS OF BREATH 12/26/2015 KIRIT CONTRERAS MD Ot Z72. 0 TOBACCO USE 12/26/2015 KIRIT CONTRERAS MD Ot Z82. 49 FAMILY HX OF ISCHEM HEART DIS AND OTH DI 01/23/2016 KIRIT CONTRERAS MD Ot E78. 5 HYPERLIPIDEMIA, UNSPECIFIED 01/23/2016 KIRIT CONTRERAS MD Ot I10 ESSENTIAL (PRIMARY) HYPERTENSION 01/23/2016 KIRIT CONTRERAS MD Ot R06. 02 SHORTNESS OF BREATH 01/23/2016 KIRIT CONTRERAS MD Ot Z72. 0 TOBACCO USE 01/23/2016 KIRIT CONTRERAS MD Ot Z82. 49 FAMILY HX OF ISCHEM HEART DIS AND OTH DI 01/24/2016 KIRIT CONTRERAS MD Ot E78. 5 HYPERLIPIDEMIA, UNSPECIFIED 01/24/2016 KIRIT CONTRERAS MD Ot I10 ESSENTIAL (PRIMARY) HYPERTENSION 01/24/2016 KIRIT CONTRERAS MD Ot R06. 02 SHORTNESS OF BREATH 01/24/2016 KIRIT CONTRERAS MD Ot Z72. 0 TOBACCO USE 01/24/2016 KIRIT CONTRERAS MD Ot Z82. 49 FAMILY HX OF ISCHEM HEART DIS AND OTH DI 02/06/2016 KIRIT CONTRERAS MD Ot E78. 5 HYPERLIPIDEMIA, UNSPECIFIED 02/06/2016 KIRIT CONTRERAS MD Ot I10 ESSENTIAL (PRIMARY) HYPERTENSION 02/06/2016 KIRIT CONTRERAS MD Ot R06. 02 SHORTNESS OF BREATH 02/06/2016 KIRIT CONTRERAS MD Ot Z72. 0 TOBACCO USE 02/06/2016 KIRIT CONTRERAS MD Ot Z82. 49 FAMILY HX OF ISCHEM HEART DIS AND OTH DI 02/13/2016 KIRIT CONTRERAS MD Ot E78. 5 HYPERLIPIDEMIA, UNSPECIFIED 02/13/2016 KIRIT CONTRERAS MD Ot I10 ESSENTIAL (PRIMARY) HYPERTENSION 02/13/2016 KIRIT CONTRERAS MD Ot R06. 02 SHORTNESS OF BREATH 02/13/2016 KIRIT CONTRERAS MD Ot Z72. 0 TOBACCO USE 02/13/2016 KIRIT CONTRERAS MD Ot Z82. 49 FAMILY HX OF ISCHEM HEART DIS AND OTH DI 02/13/2016 KIRIT CONTRERAS MD Ot E78. 5 HYPERLIPIDEMIA, UNSPECIFIED 02/13/2016 KIRIT CONTRERAS MD Ot I10 ESSENTIAL (PRIMARY) HYPERTENSION 02/13/2016 KIRIT CONTRERAS MD Ot R06. 02 SHORTNESS OF BREATH 02/13/2016 KIRIT CONTRERAS MD Ot Z72. 0 TOBACCO USE 02/13/2016 KIRIT CONTRERAS MD Ot Z82. 49 FAMILY HX OF ISCHEM HEART DIS AND OTH DI 02/13/2016 KIRIT CONTRERAS MD Ot E78. 5 HYPERLIPIDEMIA, UNSPECIFIED 02/13/2016 KIRIT CONTRERAS MD Ot I10 ESSENTIAL (PRIMARY) HYPERTENSION 02/13/2016 KIRIT CONTRERAS MD Ot R06. 02 SHORTNESS OF BREATH 02/13/2016 KIRIT CONTRERAS MD Ot Z72. 0 TOBACCO USE 02/13/2016 KIRIT CONTRERAS MD Ot Z82. 49 FAMILY HX OF ISCHEM HEART DIS AND OTH DI 03/01/2018 KIRIT CONTRERAS MD Ot E78. 5 HYPERLIPIDEMIA, UNSPECIFIED 03/01/2018 KIRIT CONTRERAS MD Ot I10 ESSENTIAL (PRIMARY) HYPERTENSION 03/01/2018 KIRIT CONTRERAS MD Ot R06. 02 SHORTNESS OF BREATH 03/01/2018 KIRIT CONTRERAS MD Ot Z72. 0 TOBACCO USE 03/01/2018 KIRIT CONTRERAS MD Ot Z82. 49 FAMILY HX OF ISCHEM HEART DIS AND OTH DI 03/01/2018 KIRIT CONTRERAS MD Ot E78. 5 HYPERLIPIDEMIA, UNSPECIFIED 03/01/2018 KIRIT CONTRERAS MD J Ot I10 ESSENTIAL (PRIMARY) HYPERTENSION 03/01/2018 DIANE GOLDSTEIN, KIRIT J Ot R06. 02 SHORTNESS OF BREATH 03/01/2018 KIRIT CONTRERAS MD Ot Z72. 0 TOBACCO USE 03/01/2018 DIANE GOLDSTEIN, KIRIT Irwin Ot Z82. 49 FAMILY HX OF ISCHEM HEART DIS AND OTH DI 08/19/2018 KIRIT CONTRERAS MD Ot E78. 5 HYPERLIPIDEMIA, UNSPECIFIED 08/19/2018 KIRIT CONTRERAS MD J Ot I10 ESSENTIAL (PRIMARY) HYPERTENSION 08/19/2018 KIRIT CONTRERAS MD J Ot R06. 02 SHORTNESS OF BREATH 08/19/2018 DIANE GOLDSTEIN, KIRIT Irwin Ot Z72. 0 TOBACCO USE 08/19/2018 DIANE GOLDSTEIN, KIRIT Irwin Ot Z82. 49 FAMILY HX OF ISCHEM HEART DIS AND OTH DI 04/05/2019 KIRIT CONTRERAS MD Ot E78. 5 HYPERLIPIDEMIA, UNSPECIFIED 04/05/2019 KIRIT CONTRERAS MD J Ot I10 ESSENTIAL (PRIMARY) HYPERTENSION 04/05/2019 KIRIT CONTRERAS MD J Ot R06. 02 SHORTNESS OF BREATH 04/05/2019 KIRIT CONTRERAS MD Ot Z72. 0 TOBACCO USE 04/05/2019 DIANE GOLDSTEIN, KIRIT Irwin Ot Z82. 49 FAMILY HX OF ISCHEM HEART DIS AND OTH DI 04/05/2019 KIRIT CONTRERAS MD Ot E78. 5 HYPERLIPIDEMIA, UNSPECIFIED 04/05/2019 KIRIT CONTRERAS MD J Ot I10 ESSENTIAL (PRIMARY) HYPERTENSION 04/05/2019 KIRIT CONTRERAS MD Ot R06. 02 SHORTNESS OF BREATH 04/05/2019 KIRIT CONTRERAS MD Ot Z72. 0 TOBACCO USE 04/05/2019 DIANE GOLDSTEIN, KIRIT J Ot Z82. 49 FAMILY HX OF ISCHEM HEART DIS AND OTH DI 04/05/2019 KIRIT CONTRERAS MD Ot E78. 5 HYPERLIPIDEMIA, UNSPECIFIED 04/05/2019 KIRIT CONTRERAS MD J Ot I10 ESSENTIAL (PRIMARY) HYPERTENSION 04/05/2019 KIRIT CONTRERAS MD J Ot R06. 02 SHORTNESS OF BREATH 04/05/2019 KIRIT CONTRERAS MD Ot Z72. 0 TOBACCO USE 04/05/2019 DIANE GOLDSTEIN, KIRIT J Ot Z82. 49 FAMILY HX OF ISCHEM HEART DIS AND OTH DI Procedures There is no data. Results Test Result Range Complete blood count (CBC) with automate d white blood cell (WBC) differential - 04/05/19 05:25 Blood leukocytes automated count (number/volume) 7.8 10*3/uL 4.3-11.0 Blood erythrocytes automated count (number/volume) 4.26 10*6/uL 4.35-5.85 Venous blood hemoglobin measurement (mass/volume) 12.2 g/dL 13.3-17.7 Blood hematocrit (volume fraction) 37 % 40-54 Automated erythrocyte mean corpuscular volume 86 [ foz_us] 80-99 Automated erythrocyte mean corpuscular h emoglobin (mass per erythrocyte) 29 pg 25-34 Automated erythrocyte mean corpuscular h emoglobin concentration measurement (mass/volume) 33 g/dL 32-36 Automated erythrocyte distribution width ratio 13. 9 % 10.0- 14.5 Automated blood platelet count (count/volume) 645 10*3/uL 130-400 Automated blood platelet mean volume measurement 11.1 [foz_us] 7.4-10.4 Automated blood neutrophils/100 leukocytes 69 % 42-75 Automated blood lymphocytes/100 leukocytes 15 % 12-44 Blood monocytes/100 leukocytes 12 % 0-12 Automated blood eosinophils/100 leukocytes 4 % 0-10 Automated blood basophils/100 leukocytes 0 % 0-10 Blood neutrophils automated count (number/volume) 5.3 10*3 1.8-7.8 Blood lymphocytes automated count (number/volume) 1.2 10*3 1.0-4.0 Blood monocytes automated count (number/volume) 1. 0 10*3 0.0-1.0 Automated eosinophil count 0.3 10*3/uL 0 .0-0.3 Automated blood basophil count (count/volume) 0.0 10*3/uL 0.0-0.1 Comprehensive metabolic panel - 04/05/19 05:25 Serum or plasma sodium measurement (moles/volume) 134 mmol/L 135-145 Serum or plasma potassium measurement (moles/volume) 4.1 mmol/L 3.6-5.0 Serum or plasma chloride measurement (moles/volume) 106 mmol/L 98-107 Carbon dioxide 20 mmol/L 21-32 Serum or plasma anion gap determination (moles/volume) 8 mmol/L 5-14 Serum or plasma urea nitrogen measurement (mass/volume ) 25 mg/dL 7-18 Serum or plasma creatinine measurement (mass/volume) 0.77 mg/dL 0.60-1.30 Serum or plasma urea nitrogen/creatinine mass ratio 32 NRG Serum or plasma creatinine measurement w ith calculation of estimated glomerular filtration rate > NRG Serum or plasma glucose measurement (mass/volume) 94 mg/dL 70-105 Serum or plasma calcium measurement (mass/volume) 9.2 mg/dL 8.5-10.1 Serum or plasma total bilirubin measurement (mass/volu me) 0.6 mg/dL 0.1-1.0 Serum or plasma alkaline phosphatase jocelin surement (enzymatic activity/volume) 160 U/L 40-136 Serum or plasma aspartate aminotransfera se measurement (enzymatic activity/volume) 38 U/L 5-34 Serum or plasma alanine aminotransferase measurement (enzymatic activity/volume) 85 U/L 0-55 Serum or plasma protein measurement (mass/volume) 6.4 g/dL 6.4-8.2 Serum or plasma albumin measurement (mass/volume) 3.3 g/dL 3.2-4.5 CALCIUM CORRECTED 9.8 mg/dL 8.5-10.1 Complete blood count (CBC) with automate d white blood cell (WBC) differential - 04/11/19 06:00 Blood leukocytes automated count (number/volume) 5.2 10*3/uL 4.3-11.0 Blood erythrocytes automated count (number/volume) 4.29 10*6/uL 4.35-5.85 Venous blood hemoglobin measurement (mass/volume) 12.1 g/dL 13.3-17.7 Blood hematocrit (volume fraction) 36 % 40-54 Automated erythrocyte mean corpuscular volume 86 [ foz_us] 80-99 Automated erythrocyte mean corpuscular h emoglobin (mass per erythrocyte) 28 pg 25-34 Automated erythrocyte mean corpuscular h emoglobin concentration measurement (mass/volume) 33 g/dL 32-36 Automated erythrocyte distribution width ratio 13. 6 % 10.0- 14.5 Automated blood platelet count (count/volume) 464 10*3/uL 130-400 Automated blood platelet mean volume measurement 9.2 [foz_us] 7.4-10.4 Automated blood neutrophils/100 leukocytes 66 % 42-75 Automated blood lymphocytes/100 leukocytes 17 % 12-44 Blood monocytes/100 leukocytes 13 % 0-12 Automated blood eosinophils/100 leukocytes 5 % 0-10 Automated blood basophils/100 leukocytes 0 % 0-10 Blood neutrophils automated count (number/volume) 3.1 10*3 1.8-7.8 Blood lymphocytes automated count (number/volume) 0.8 10*3 1.0-4.0 Blood monocytes automated count (number/volume) 0. 6 10*3 0.0-1.0 Automated eosinophil count 0.2 10*3/uL 0 .0-0.3 Automated blood basophil count (count/volume) 0.0 10*3/uL 0.0-0.1 Comprehensive metabolic panel - 04/11/19 06:00 Serum or plasma sodium measurement (moles/volume) 136 mmol/L 135-145 Serum or plasma potassium measurement (moles/volume) 4.4 mmol/L 3.6-5.0 Serum or plasma chloride measurement (moles/volume) 108 mmol/L 98-107 Carbon dioxide 17 mmol/L 21-32 Serum or plasma anion gap determination (moles/volume) 11 mmol/L 5-14 Serum or plasma urea nitrogen measurement (mass/volume ) 17 mg/dL 7-18 Serum or plasma creatinine measurement (mass/volume) 0.82 mg/dL 0.60-1.30 Serum or plasma urea nitrogen/creatinine mass ratio 21 NRG Serum or plasma creatinine measurement w ith calculation of estimated glomerular filtration rate > NRG Serum or plasma glucose measurement (mass/volume) 101 mg/dL 70-105 Serum or plasma calcium measurement (mass/volume) 9.3 mg/dL 8.5-10.1 Serum or plasma total bilirubin measurement (mass/volu me) 0.4 mg/dL 0.1-1.0 Serum or plasma alkaline phosphatase jocelin surement (enzymatic activity/volume) 151 U/L 40-136 Serum or plasma aspartate aminotransfera se measurement (enzymatic activity/volume) 23 U/L 5-34 Serum or plasma alanine aminotransferase measurement (enzymatic activity/volume) 40 U/L 0-55 Serum or plasma protein measurement (mass/volume) 6.5 g/dL 6.4-8.2 Serum or plasma albumin measurement (mass/volume) 3.4 g/dL 3.2-4.5 CALCIUM CORRECTED 9.8 mg/dL 8.5-10.1 Encounters ACCT No. Visit Date/Time Discharge Status Pt. Type Provider Facility Loc./Unit Complaint [id number] 01/23/2016 13:26:00 23:59:59 CLS Outpatient KIRIT CONTRERAS MD [facility] CARD HLP,SOB,TOBACCO USE,CAD [id number] 12/19/2015 09:58:00 23:59:59 CLS Outpatient KIRIT CONTRERAS MD [facility] CARD HLO,SOB,TOBACCO USE,CAD [id number] 12/10/2015 15:02:00 23:59:59 CLS Outpatient KIRIT CONTRERAS MD [facility] CARD HLO,SOB,TOBACCO USE,CAD [id number] 04/04/2019 14:35:[address] Inpatient RENEE JARVIS DO [facility] IRF STEMI
--- NOTE | 2019-04-13 12:28 | Speech Therapy Daily Note ---
Speech Daily Progress Note Subjective Date Seen by Provider: Apr 13, 2019 Time Seen by Provider: 09:30 Patient was alert and cooperative for all therapy tasks. Patient reported that he is eager to return home. Patient sat upright in his bed for the duration of treatment. Objective Patient completed safety awareness tasks pertaining to household scenarios at 75% with moderate cues. Assessment Assessment Current Status: Good Progress Treatment Plan Continue Plan of Care Speech Short Term Goals Short Term Goals Short Term Goals 1) Patient will complete memory exercises related to his daily living skills with 80% or greater. 2) Patient will complete safety awareness exercises related to his daily living skills with 80% or greater. 3) Patient will complete problem solving exercises related to his daily living skills with 80% or greater. 4) Patient will complete speech production exercises at 80% or greater with minimal cues. Speech Supercharger Repair Supervisor Goals Supercharger Repair Supervisor Goals Patient will improve cognitive-communication and speech exercises necessary for safety and daily living tasks with minimal assist and effective communication. Speech-Plan Patient/Family Goals Patient/Family Goals: Patient reported that he is ready to return home to previous level of mobility and independence. Treatment Plan Speech Therapy Treatment Plan: Continue Plan of Care Treatment Duration: Apr 15, 2019 Frequency: 4 times per week Estimated Hrs Per Day: .5 hour per day Rehab Potential: Fair Barriers to Learning: Moderate cognitive deficits Pt/Family Agrees to Plan: Yes Safety Risks/Education Teaching Recipient: Patient Teaching Methods: Demonstration Response to Teaching: Verbalize Understanding Education Topics Provided: Utilization of safety awareness strategies for when he is discharged home from the ARU. Time Speech Therapy Time In: 09:30 Speech Therapy Time Out: 10:00 Total Billed Time: 30 Billed Treatment Time [address] Apr 13, 2019 12:28
--- NOTE | 2019-04-13 14:35 | Therapy Group Daily Note ---
Therapy Daily Group Note Patient Education Topic Home Safety Exercises LE Seated Exercise, UE Exercise Session Ratio (pt:therapist): 3:1 Goal of Session: Home Safety Strategies, Memory Strategies, UE/LE Strengthing, Safety with Transfers Goal Met for this Session: Yes Pt Benefit of Group: Contributions to Others, F/U Use of Strategies @Home, Increased Functional Safety, Increased Functional Strength, Improved Cognition, Recognition of Peers, Socialization Other/Notes Pt ambulated to PT/OT Group in Therapy Gym. Group consisted of Introductions (Name, Where are you from & who taught you to drive), Socialization, Seated UE/LE Exercises as well as Home Safety Program. Pt introduced self appropriately and actively listened to peers. Pt was able to complete UE dowel meg exercises and LE Seated Exercise. Pt acknowledged home safety strategies and personal one pt could do at home. Pt returns to room to rest in bed at end of Group with all needs met, call light in hand. Start Time: 13:00 Stop Time: 14:10 Total Billed Treatment Time: 70 Total Billed Treatment 1, GRP (70m) SHILPA MICHAUD JUNIOR PHP DEVELOPER Apr 13, 2019 14:35
[2019-04-13 18:12] VITALS: BP 111/67
--- NOTE | 2019-04-13 19:08 | NUR ---
bedside report received from JANENE ALEXANDER, assume care of pt
[2019-04-13] MEDS: ENOXAPARIN 40 MG/0.4 ML (LOVENOX) SYR SC SCH (20:16)
--- NOTE | 2019-04-13 20:16 | NUR ---
pt refused Colace, enclose & miralax, took all other meds, at bedside, side rails up x4, bed alarm on
[2019-04-13] MEDS: polyethylene glycoL POWDER 17 GM (MIRALAX) PACK PO SCH (20:19)
[2019-04-14 05:46] VITALS: BP 120/76
[2019-04-14] MEDS: CARVEDILOL 3.125 MG (COREG) TABLET PO SCH ×2 (06:34→17:56)
--- NOTE | 2019-04-14 08:00 | NUR ---
DENIES PAIN. ANXIOUS TO GO HOME MAIDA. DENIES ANY CONCERNS.
--- NOTE | 2019-04-14 08:17 | Cardiology Progress Note ---
Subjective Date Seen by Provider: Apr 14, 2019 Time Seen by Provider: 08:16 Subjective/Events-last exam Patient is sitting up in chair, no new complaints. Denies any chest pain or dyspnea. Review of Systems General: No Chills, No Night Sweats, No Fatigue, No Malaise, No Appetite, No Other HEENT: No Head Aches, No Visual Changes, No Eye Pain, No Ear Pain, No Dysphasia, No Sinus Congestion, No Post Nasal Drip, No Sore Throat, No Other Pulmonary: No Dyspnea, No Cough, No Pleuritic Chest Pain, No Other Cardiovascular: No: Chest Pain, Palpitations, Orthopnea, Paroxysmal Noc. Dyspnea, Edema, Lt Headedness, Other Objective-Cardiology Exam Last Set of Vital Signs Vital Signs 04/14/19 04/14/19 05:46 09:00 Temp 36.6 Pulse 67 Resp 16 B/P (MAP) 120/76 (91) Pulse Ox 96 O2 Delivery Room Air Capillary Refill : Less Than 3 SecondsLess Than 3 Seconds I&O Intake and Output 04/14/19 00:00 Intake Total 2100 ml Balance 2100 ml Intake Oral 2100 ml # Voids 5 # Bowel Movements 1 General: Alert, Oriented X3, Cooperative HEENT: Atraumatic, PERRLA Neck: Supple, No JVD, No Thyromegaly Lungs: Clear to Auscultation, Normal Air Movement Heart: Regular Rate, Normal S1, Normal S2, No Murmurs Abdomen: Normal Bowel Sounds, Soft, No Tenderness, No Hepatosplenomegaly, No Masses Extremities: No Clubbing, No Cyanosis, No Edema, Normal Pulses, No Tenderness/Swelling Skin: No Rashes, No Breakdown, No Significant Lesion Neuro: Normal Speech, Cranial Nerves 3-12 NL Psych/Mental Status: Mental Status NL, Mood NL A/P-Cardiology Admission Diagnosis s/p cardiac arrest STEMI CAD HTN HLP Assessment/Plan CAD, s/p cardiac arrest on 03/18/2019 with STEMI, underwent emergent cardiac catheterization done at [facility] demonstrating 100% occlusion of cx, critical stenosis of LAD. Underwent Synergy 2.15r35ge stent to te mid circumflex and synergy 3.0x16mm stent to the proximal circumflex. Synergy 2.5 x20mm to mid LAD and Syncergy 2.75x 24mm to prox LAD. Currently on Plavix and ASA, continue to monitor Cardiomyopathy, acute left ventricular systolic dysfunction secondary to acute myocardial infarction, echocardiogram showed normal left ventricular size and systolic function, ejection fraction 50-55 percent, mild hypokinesia at the apical lateral wall, PA pressure 25 mmHg. Continue to monitor Bilateral pneumothorax, s/p CT placement, resolved, chest tubes discontinued Hypertension, currently borderline hypotensive. Maintained on Coreg 3.125mg BID and Lisinopril 5mg daily. Continue to monitor. Hyperlipidemia, maintained on stating, continue to monitor. Hx of RBBB. Constipation,resolved, management per PCP Urinary retention, resolved, payton d/c'd. Tobaccoism, patient chewed tobacco. Educated on avoiding tobacco product Arthritis, management per PCP Nonobstructive carotid artery stenosis-last carotid duplex done November 2015. Continue to monitor. Strong family history of heart disease OK for discharge from cardiology standpoint. F/u in 2-4 weeks in our office. Patient was seen and evaluated with Corine, examination performed, management plan was discussed, agree with the current scribed note, I made few changes to the note using Italic font Patient was laying down in bed comfortably, denied any chest pain, feeling better. Okay for discharge from Cardiology standpoint. Clinical Quality Measures DVT/VTE Risk/Contraindication: Risk Factor Score Per Nursin RFS Level Per Nursing on Admit: 4+=Very High CORINE QUINN Apr 14, 2019 8:17 am KIRIT CONTRERAS MD Apr 14, 2019 4:04 pm
[2019-04-14] MEDS: ASPIRIN 81 MG CHEW (CHILDREN'S ASA) PO SCH (08:29)
[2019-04-14] MEDS: TAMSULOSIN 0.4 MG (FLOMAX) CAP PO SCH ×2 (08:29→20:23)
[2019-04-14] MEDS: lisINopril 5 MG (PRINIVIL) TABLET PO SCH (08:30)
[2019-04-14] MEDS: CLOPIDOGREL 75 MG (PLAVIX) TABLET PO SCH (08:30)
[2019-04-14] MEDS: FLUTICASONE NASAL SPRAY (FLONASE) 16 GM BTL NS SCH (08:31)
[2019-04-14] MEDS: BISACODYL 10 MG SUPP (DULCOLAX) PR SCH (08:32)
[2019-04-14] MEDS: DOCUSATE SODIUM 100 MG (COLACE) CAP PO SCH ×2 (08:32→20:24)
[2019-04-14] MEDS: SENNA W/DOCUSATE (SENOKOT S) TABLET PO SCH ×2 (08:32→20:25)
[2019-04-14] MEDS: LACTULOSE SYRUP 10GM/15ML (ENULOSE) 30ML UDC PO SCH ×2 (08:32→20:24)
--- NOTE | 2019-04-14 09:06 | PM&R Progress Note ---
Subjective HPI/CC On Admission Date Seen by Provider: Apr 14, 2019 Time Seen by Provider: 09:00 Subjective/Events-last exam Discharge is planned tomorrow. Home health orders and four-wheel walker was placed. No longer has pain in the chest tube wounds. Bowels are moving well. Conferred with RN. Reviewed therapy notes. Checked meds and labs. Review of Systems General: Fatigue Neurological: Weakness, Incoordination, Confusion Objective Exam Vital Signs Vital Signs Date Time Temp Pulse Resp B/P (MAP) Pulse Ox O2 Delivery O2 Flow Rate FiO2 04/14/19 18:06 36.0 74 20 125/78 (94) 99 Room Air Capillary Refill : Less Than 3 SecondsLess Than 3 Seconds General Appearance: No Apparent Distress, WD/WN, Chronically ill, Thin HEENT: PERRL/EOMI, Normal ENT Inspection, Pharynx Normal Neck: Full Range of Motion, Normal Inspection, Non Tender, Supple, Carotid Bruit Respiratory: Chest Non Tender, Lungs Clear, Normal Breath Sounds, No Accessory Muscle Use, No Respiratory Distress Cardiovascular: Regular Rate, Rhythm, No Edema, No Gallop, No JVD, No Murmur, Normal Peripheral Pulses Gastrointestinal: Normal Bowel Sounds, No Organomegaly, No Pulsatile Mass, Non Tender, Soft Back: Normal Inspection, No CVA Tenderness, No Vertebral Tenderness Extremity: Normal Capillary Refill, Normal Inspection, Normal Range of Motion, Non Tender, No Calf Tenderness, No Pedal Edema Neurologic/Psychiatric: Alert, Oriented x3, No Motor/Sensory Deficits, Normal Mood/Affect, Disoriented (subtle slow responses and recall), Motor Weakness (generalized all extremities, impulsive) Skin: Normal Color, Warm/Dry Lymphatic: No Adenopathy Results/Procedures Lab Patient resulted labs reviewed. FIM Transfers Therapy Code Descriptions/Definitions Functional [place] Measure: 0=Not Assessed/NA 4=Minimal Assistance 1=Total Assistance 5=Supervision or Setup 2=Maximal Assistance 6=Modified [place] 3=Moderate Assistance 7=Complete IndependenceSCALE: Activities may be completed with or without assistive devices. 6-Oayflljcpf-wsygyux completes the activity by him/herself with no assistance from a helper. 5-Set-up or Clean-up Assistance-helper sets up or cleans up; patient completes activity. [place] assists only prior to or following the activity. 4-Supervision or Touching Assistance-helper provides verbal cues and/or touching/steadying and/or contact guard assistance as patient completes activity. Assistance may be provided throughout the activity or intermittently. 3-Partial/Moderate Assistance-helper does LESS THAN HALF the effort. Rosie lifts, holds or supports trunk or limbs, but provides less than half the effort. 2-Substantial/Maximal Assistance-helper does MORE THAN HALF the effort. [place] lifts or holds trunk or limbs and provides more than half the effort. 1-Mfyqozrqc-xkrpdd does ALL the effort. Patient does none of the effort to complete the activity. Or, the assistance of 2 or more helpers is required for the patient to complete the activity. If activity was not attempted, code reason: 7-Patient Refused. 9-Not Applicable-not attempted and the patient did not perform the activity before the current illness, exacerbation or injury. 10-Not Attempted due to Environmental Limitations-(lack of equipment, weather restraints, etc.). 88-Not Attempted due to Medical Conditions or Safety Concerns. Roll Left to Right (QC): 6 Sit to Lying (QC): 6 Sit to Stand (QC): 6 Chair/Azf-jn-Zapbz Xfer(QC): 6 Car Transfer (QC): 6 Gait Training Does the Patient Walk?: Yes Distance: 600', 120' Walk 10 feet (QC): 5 Walk 50 ft with 2 Turns(QC): 5 Walk 150 ft (QC): 5 Walking 10ft/uneven surface-QC: 4 Gait Persons Needed: 1 Gait Assistive Device: FWW Wheelchair Training Does the Pt Use a Wheelchair?: No Wheel 50 ft with 2 turns (QC): 4 Wheel 150 ft (QC): 88 Stair Training Stair Training: Handrails/: 2 handrails #of Steps: 12 1 Step (curb) (QC): 4 4 Steps (QC): 4 12 Steps (QC): 4 Stairs: Pattern: Step to Balance Picking up an Object (QC): 4 ADL-Treatment Oral Hygiene (QC): 5 Shower/Bathe Self (QC): 4 Upper Body Dressing (QC): 5 Lower Body Dressing (QC): 4 On/Off Footwear (QC): 5 Toileting Hygiene (QC): 7 (Pt declined need to toilet at this time.) Assessment/Plan Assessment and Plan Assess & Plan/Chief Complaint Assessment: Anoxic brain injury Cognitive deficit improved since admit CAD Constipation severe resolved Urinary retention requiring payton cath now DC Fall to bathroom 5 days ago Plan: IRF protocol BM regimen Cardiology appreciated Dr Gentile appreciated DC Payton and urinating well Dispo Thursday home (1) Anoxic brain injury (2) CAD (coronary artery disease) (3) Malnutrition (4) Urinary retention (5) Constipation (6) Payton catheter in place (7) Hypertension RENEE JARVIS DO Apr 14, 2019 09:06
--- NOTE | 2019-04-14 09:07 | Occupational Ther Daily Note ---
OT Current Status-Daily Note Subjective Pt seen in bed, present. Pt states agreement to OT session, states slept well throughout night. Pt denies pain. Pt seen 2nd time from [id number], pt denies pain. Nursing notified of pt leaving floor. Nursing agrees. Pt denies pain. Mental Status/Objective Patient Orientation: Person, Place, Situation ADL-Treatment Therapy Code Descriptions/Definitions Functional [place] Measure: 0=Not Assessed/NA 4=Minimal Assistance 1=Total Assistance 5=Supervision or Setup 2=Maximal Assistance 6=Modified [place] 3=Moderate Assistance 7=Complete IndependenceSCALE: Activities may be completed with or without assistive devices. 1-Dbqkwnzsxx-rsckdvp completes the activity by him/herself with no assistance from a helper. 5-Set-up or Clean-up Assistance-helper sets up or cleans up; patient completes a ctivity. [place] assists only prior to or following the activity. 4-Supervision or Touching Assistance-helper provides verbal cues and/or touching/steadying and/or contact guard assistance as patient completes activity. Assistance may be provided throughout the activity or intermittently. 3-Partial/Moderate Assistance-helper does LESS THAN HALF the effort. [place] lifts, holds or supports trunk or limbs, but provides less than half the effort. 2-Substantial/Maximal Assistance-helper does MORE THAN HALF the effort. [place] lifts or holds trunk or limbs and provides more than half the effort. 5-Jmuutpfbg-ksseqh does ALL the effort. Patient does none of the effort to complete the activity. Or, the assistance of 2 or more helpers is required for the patient to complete the activity. If activity was not attempted, code reason: 7-Patient Refused. 9-Not Applicable-not attempted and the patient did not perform the activity before the current illness, exacerbation or injury. 10-Not Attempted due to Environmental Limitations-(lack of equipment, weather restraints, etc.). 88-Not Attempted due to Medical Conditions or Safety Concerns. Eating (QC): 6 Oral Hygiene (QC): 6 (IND at sink level with walker.) Bathing Location: L Arm, R Arm, L Upper Leg, R Upper Leg, L Lower Leg (including foot), R Lower Leg (including foot), Chest, Abdomen, Buttocks, Perineal Area Shower/Bathe Self (QC): 4 (SUP during showering. Pt has built in stool in shower, OT/ pt/ discuss safety in shower and benefits of grab bars. Pt and plan to install) Upper Body Dressing (QC): 6 Lower Body Dressing (QC): 4 (SUP due to impulsiveness ) On/Off Footwear: 6 Toileting Hygiene (QC): 6 Toilet Transfer (QC): 6 (use of walker.) Other Treatment [id number]: Pt denies pain, completes bed mob with SUP, s/u for showering. Pt completes all ADLs in bathroom. States he plans to shower on built in shower stool and has long handled sprayer. Pt completes shaving/ oral hygiene in stance. Toileting with IND. Pt then ambulates to gym, completes 10 min of medium resistance (25 watt) arm bike with one rest break. Pt then stands to complete L handed peg board- completes with increased time but moderate accuracy. Pt com pletes following peg board diagram with 100% accuracy. Pt then instructed to name 2 words that correlate with 1st letter of the color of peg- pt given example. Pt demonstrates increased time, must come back to multiple colors to complete with accuracy. Pt returns to room with call light in reach, all needs met, pt in bed with bed alarm on. Pt educated on PT session and OT session later in day. Pt nods. [id number]: Pt's nurse notiifed of pt going to 1st floor, nursing agrees. Pt ambulates from 2nd to 1st floor, able to navigate to gift shops with signs in environment with ease. Pt ambulates with SBA and walker, sits in waiting area to complete 10-20 reps bilaterally of following theraband exercises: Back flies, shoulder scaption, biceps, triceps. Pt states L arm working/ fatiguing. Pt educated on completing exercises within home with theraband to continue strengthening L side. Pt agrees. Pt ambulates around cafeteria, able to navigate around barriers with CGA. Pt ambulates back to room with min cues for naviga tion. Pt returns to bed, present, all needs met. pt denies needs, states readiness for home. Education OT Patient Education: Correct positioning, Exercise program, Instructions to caregiver, Modified ADL techniques, Progress toward Goal/Update tx plan, Safety issues, Use of adapted equipment Teaching Recipient: Patient Teaching Methods: Demonstration, Discussion Response to Teaching: Verbalize Understanding, Return Demonstration OT Short Term Goals Short Term Goals Time Frame: Apr 11, 2019 Eatin Oral hygiene: 4 Toileting hygiene: 3 Shower/bathe self: 3 Upper body dressin Lower body dressin Putting on/taking off footwear: 4 OT Assisted Goals Assisted Goals Time Frame: Apr 25, 2019 Eating (QC): 6 Oral Hygiene (QC): 5 Toileting Hygiene (QC): 6 Shower/Bathe Self (QC): 4 Upper Body Dressing (QC): 4 Lower Body Dressing (QC): 4 On/Off Footwear (QC): 4 Additional Goals: 1-Demonstrate ADL Tasks, 2-Verbalize Understanding, 3- ImproveStrength/[place] 1=Demonstrate adherence to instructed precautions during ADL tasks. 2=Patient will verbalize/demonstrate understanding of assistive devices/modifications for ADL. 3=Patient will improve strength/tolerance for activity to enable patient to perform ADL's. OT Education/Plan Problem List/Assessment Assessment: Decreased Activ Tolerance, Impaired Coordination, Impaired Funct Balance, Impaired I ADL's, Impaired Self-Care Skills Discharge Recommendations Plan/Recommendations: Continue POC Therapy Discharge Recommendati: Intermittent Supervision, Home & Family Comment grab bars in shower. Treatment Plan/Plan of Care Treatment,Training & Education: Yes Patient would benefit from OT for education, treatment and training to promote independence in ADL's, mobility, safety and/or upper extremity function for ADL's. Plan of Care: ADL Retraining, Caregiver Training, Functional Mobility, Group Exercise/Act as Ind, UE Funct Exercise/Act Treatment Duration: Apr 25, 2019 Frequency: At least 5 of 7 days/Wk (IRF) Estimated Hrs Per Day: 1.5 hours per day Agreement: Yes Rehab Potential: Fair Time/GCodes Start Time: 08:00 (1100) Stop Time: 09:00 (1130) Total Time Billed (hr/min): 90 Billed Treatment Time [id number]: 1, ADL 3 (45), EX (15)= 60 [id number]: 1, EX 2 (30) WANDA CROSS OTR Apr 14, 2019 09:07
[2019-04-14] MEDS ORDERED: LISI-556 PO (09:39)
[2019-04-14] MEDS ORDERED: ASPI-999 PO (09:39)
[2019-04-14] MEDS ORDERED: CLOP75TA28 PO (09:39)
[2019-04-14] MEDS ORDERED: TMSL.4C PO (09:39)
[2019-04-14] MEDS ORDERED: ATOR40TA PO (09:39)
[2019-04-14] MEDS ORDERED: FLUT16SP22 NS (09:39)
[2019-04-14] MEDS ORDERED: CARV3.122 PO (09:39)
--- NOTE | 2019-04-14 09:41 | D/C HH Face to Face Order ---
D/C Face to Face Orders Reconcile Patient Problems Problems Reviewed?: Yes Instructions for Patient Via [facility], Patient Instructions/FollowUp: Dr Marquis [address] Cruz 2 weeks Physician to follow Patient: Benitez Discharge Diet for Home: Cardiac Diet Patient Problems: Anoxic brain injury CAD Goals for Patient: [place] Patient Data-Allergies,Ht & Wt Patient Allergies: Coded Allergies: No Known Drug Allergies (Unverified , 04/08/19) Home Health Need/Face to Face Date of Face to Face: Apr 14, 2019 Clinical Findings: Unsteady gait I have seen Pt kldf-rq-xvev: Yes Discharged To: Home Diagnosis/Conditions: Anoxic beain injury Patient is Homebound due to: CognItive deficits, Lloyd fall risk due to instabilty Homebound Status Due to the above stated illness, injury or surgical procedure (medical condition or diagnosis) and associated clinical findings, the patient is homebound because of his/her inability to leave home except with aid of a supportive device and/or person AND leaving the home requires a considerable and taxing effort or is medically contraindicated. Pt req the following assistanc: Walker Home Health Nursing Orders Home Health Services Order: Nursing Services, Pegger Dobby Looms-Evaluate & Treat, Physical Therapy-Evaluate & Treat, Speech Language-Evaluate & Treat Certify Stmt I certify that this patient is under my care and that I, a nurse practitioner or a physician; a specimen preparation assistant working with me, had a face to face encounter that - meets the physician face to face encounter requirements with this patient as dated. RENEE JARVIS DO Apr 14, 2019 09:41
--- NOTE | 2019-04-14 11:06 | NUR ---
CM/SS WEEKLY TEAM CONFERENCE SUMMARY Met with patient and his Sincere yesterday to review Summary. Physician and team proposed discharge to home for 04/15/19, patient and excited and ready to move forward. Presented Medicare Compare and discussed options for patient service area, also discussed agencies available regarding home DME. Referrals completed with identified preferred entities as follows: HHC: [facility] ([facility]) for RN, PT, OT. Agency to pursue preauthorization of benefits through [facility]. DME: [facility] for FWW. Agency understands to deliver FWW to patient ARU room either today or early tomorrow a.m. Patient intends to depart around 1030 tomorrow.
--- NOTE | 2019-04-14 11:22 | Physical Therapy Daily Note ---
PT Daily Note-Current Subjective Pt laying Supine in bed upon arrival. Pt agrees to QC scoring for D/C tomorrow (04/15). Pain Location: No Pain Reported Mental Status Patient Orientation: Person, Place, Situation Transfers SCALE: Activities may be completed with or without assistive devices. 6-Knhhzavxun-ewftnvd completes the activity by him/herself with no assistance from a helper. 5-Set-up or Clean-up Assistance-helper sets up or cleans up; patient completes activity. [place] assists only prior to or following the activity. 4-Supervision or Touching Assistance-helper provides verbal cues and/or touching/steadying and/or contact guard assistance as patient completes activity. Assistance may be provided throughout the activity or intermittently. 3-Partial/Moderate Assistance-helper does LESS THAN HALF the effort. [place] lifts, holds or supports trunk or limbs, but provides less than half the effort. 2-Substantial/Maximal Assistance-helper does MORE THAN HALF the effort. [place] lifts or holds trunk or limbs and provides more than half the effort. 3-Apxkkujyh-twdwdd does ALL the effort. Patient does none of the effort to complete the activity. Or, the assistance of 2 or more helpers is required for the patient to complete the activity. If activity was not attempted, code reason: 7-Patient Refused. 9-Not Applicable-not attempted and the patient did not perform the activity before the current illness, exacerbation or injury. 10-Not Attempted due to Environmental Limitations-(lack of equipment, weather restraints, etc.). 88-Not Attempted due to Medical Conditions or Safety Concerns. Roll Left & Right (QC): 6 Sit to Lying (QC): 6 Lying to Sitting/Side of Bed(Q: 6 Sit to Stand (QC): 6 Chair/Zrb-yi-Livkk Xfer(QC): 6 Toilet Transfer (QC): 6 Car Transfer (QC): 6 Weight Bearing Right Lower Extremity: Right Full Weight Bearing Left Lower Extremity: Left Full Weight Bearing Gait Training Does the Patient Walk?: Yes Distance: 350' Walk 10 feet (QC): 6 Walk 50 ft with 2 Turns(QC): 6 Walk 150 ft (QC): 6 Walking 10ft/uneven surface-QC: 6 Gait Persons Needed: 1 Gait Assistive Device: FWW Pt needs VC to keep WBOS while ambulating. Pt tends to scissor his feet if not given VC. Wheelchair Training Does the Pt Use a Wheelchair?: No Stair Training Stair Training: Handrails/: 2 handrails #of Steps: 12 1 Step (curb) (QC): 6 4 Steps (QC): 6 12 Steps (QC): 6 Stairs: Pattern: Step to Balance Picking up an Object (QC): 5 Special Test Comments Pt given VC to keep feet in WBOS while completing task. Pt is recommended to have butter fat tester for home for safety. Exercises Seated Therapy Exercises: Ankle pumps, Long arc quads, Hip flexion, Kicking activity Seated Reps: 10 Standing: Heel/toe raises, 3 way Ex=Flex, Abd, Ext, Marching, Mini squats (Discontinued due to pain in knees), Sit to Stand, Weight shifts Standing Reps: 20 NuStep Minutes: 10 NuStep Workload: 6 Treatments Pt completes QC scoring items listed above. Pt also uses NuStep for 10m at WL 6 as well as Seated & Standing Ex at //bars. Pt walks extended distance before returning to room to rest Supine in bed. Sp & Paint Roller Assembler present & pt has all needs met at end of Rx. Assessment Current Status: Good Progress Pt needs occasional VC to remind pt to keep WBOS while walking & completing standing tasks. Pt still demonstrates lack of social awareness to safety, not noticing when feet get too close together causing a fall risk situation. Pt is not retaining the VC that are given for this. PT Mcfp Goals Mcfp Goals PT Client Account Representative Goals Time Frame: May 07, 2019 Roll Left & Right (QC): 6 Sit to Lying (QC): 6 Lying-Sitting on Side/Bed(QC): 6 Sit to Stand (QC): 5 Chair/Thi-kg-Jdstu Xfer(QC): 5 Toilet Transfer (QC): 5 Car Transfer (QC): 5 Does the Patient Walk: Yes Walk 10 feet (QC): 6 Walk 50ft with 2 Turns (QC): 6 Walk 150 ft (QC): 6 Walking 10ft on Uneven Surface: 6 1 Step (curb) (QC): 6 4 Steps (QC): 6 12 Steps (QC): 6 Picking up an Object (QC): 6 PT Plan Problem List Problem List: Activity Tolerance, Safety Treatment/Plan Treatment Plan: Continue Plan of Care Treatment Plan: Bed Mobility, Concurrent Therapy, Education, Functional Ac tivity [place], Functional Strength, Group Therapy, Gait, Safety, Therapeutic Exercise, Transfers Treatment Duration: May 07, 2019 Frequency: At least 5 of 7 days/Wk (IRF) Estimated Hrs Per Day: 1.5 hours per day Patient and/or Family Agrees t: Yes Safety Risks/Education Patient Education: Gait Training, Transfer Techniques, Correct Positioning, Safety Issues Teaching Recipient: Patient Teaching Methods: Discussion Response to Teaching: Verbalize Understanding Time/GCodes Time In: 1000 Time Out: 1100 Total Billed Treatment Time: 60 Total Billed Treatment 1, GT (15m), FA x2 (25m) & EX (20m) SHILPA MICHAUD [employer] Apr 14, 2019 11:22
--- NOTE | 2019-04-14 14:34 | Physical Therapy Daily Note ---
PT Daily Note-Current Subjective Pt laying Supine in bed upon arrival. Pt agrees to PT. Pain Location: No Pain Reported Mental Status Patient Orientation: Person, Place, Situation Transfers SCALE: Activities may be completed with or without assistive devices. 8-Dpoitttjxj-oslqtgo completes the activity by him/herself with no assistance from a helper. 5-Set-up or Clean-up Assistance-helper sets up or cleans up; patient completes activity. [place] assists only prior to or following the activity. 4-Supervision or Touching Assistance-helper provides verbal cues and/or touching/steadying and/or contact guard assistance as patient completes activity. Assistance may be provided throughout the activity or intermittently. 3-Partial/Moderate Assistance-helper does LESS THAN HALF the effort. [place] lifts, holds or supports trunk or limbs, but provides less than half the effort. 2-Substantial/Maximal Assistance-helper does MORE THAN HALF the effort. [place] lifts or holds trunk or limbs and provides more than half the effort. 0-Dxqqaejmo-kzsxzv does ALL the effort. Patient does none of the effort to complete the activity. Or, the assistance of 2 or more helpers is required for the patient to complete the activity. If activity was not attempted, code reason: 7-Patient Refused. 9-Not Applicable-not attempted and the patient did not perform the activity before the current illness, exacerbation or injury. 10-Not Attempted due to Environmental Limitations-(lack of equipment, weather restraints, etc.). 88-Not Attempted due to Medical Conditions or Safety Concerns. Sit to Lying (QC): 6 Lying to Sitting/Side of Bed(Q: 6 Sit to Stand (QC): 6 Weight Bearing Right Lower Extremity: Right Full Weight Bearing Left Lower Extremity: Left Full Weight Bearing Gait Training Does the Patient Walk?: Yes Distance: 500' Walk 10 feet (QC): 6 Walk 50 ft with 2 Turns(QC): 6 Walk 150 ft (QC): 6 Gait Persons Needed: 1 Gait Assistive Device: FWW Pt still needing VC for keeping WBOS while upright, especially while walking. Wheelchair Training Does the Pt Use a Wheelchair?: No Exercises Supine Ex: Ankle pumps, Quad Set, Glut sets, Heel Slides, Straight leg raise, Hip abd/add Supine Reps: 10 Seated Therapy Exercises: Ankle pumps, Long arc quads, Hip flexion, Kicking activity Seated Reps: 10 Treatments Pt transfers from bed to standing. Pt then ambulates in hallway. Pt returns to room where WATER JET OPERATOR gives pt written HEP with verbal and physical instruction. Pt resting in bed at end of Rx with all needs met, call light in hand. Assessment Current Status: Good Progress Pt tolerates Rx well. Pt needs occasional VC for WBOS while walking as well as needing VC for retention of safety. PT Laser Cutter Goals Prison Goals PT Laser Cutter Goals Time Frame: May 07, 2019 Roll Left & Right (QC): 6 Sit to Lying (QC): 6 Lying-Sitting on Side/Bed(QC): 6 Sit to Stand (QC): 5 Chair/Bhb-nm-Vibgh Xfer(QC): 5 Toilet Transfer (QC): 5 Car Transfer (QC): 5 Does the Patient Walk: Yes Walk 10 feet (QC): 6 Walk 50ft with 2 Turns (QC): 6 Walk 150 ft (QC): 6 Walking 10ft on Uneven Surface: 6 1 Step (curb) (QC): 6 4 Steps (QC): 6 12 Steps (QC): 6 Picking up an Object (QC): 6 PT Plan Problem List Problem List: Activity Tolerance, Safety Treatment/Plan Treatment Plan: Continue Plan of Care Treatment Plan: Bed Mobility, Concurrent Therapy, Education, Functional Activity [place], Functional Strength, Group Therapy, Gait, Safety, Therapeutic Exercise, Transfers Treatment Duration: May 07, 2019 Frequency: At least 5 of 7 days/Wk (IRF) Estimated Hrs Per Day: 1.5 hours per day Patient and/or Family Agrees t: Yes Safety Risks/Education Patient Education: Gait Training, Issued Written HEP, Correct Positioning, Safety Issues Teaching Recipient: Patient, Significant Other Teaching Methods: Demonstration Response to Teaching: Verbalize Understanding Time/GCodes Time In: 1400 Time Out: 1430 Total Billed Treatment Time: 30 Total Billed Treatment 1, GT (20m) & EX (10m) SHILPA MICHAUD PTA Apr 14, 2019 14:34
[2019-04-14 18:06] VITALS: BP 125/78
--- NOTE | 2019-04-14 19:12 | NUR ---
bedside report received from LAZARO ALEXANDER & PB ALEXANDER, assume care of pt
[2019-04-14] MEDS: ENOXAPARIN 40 MG/0.4 ML (LOVENOX) SYR SC SCH (20:23)
--- NOTE | 2019-04-14 20:23 | NUR ---
pt refused Colace, Enulose, miralax & Senokot, at bedside, side rails up x4, bed alarm on
[2019-04-14] MEDS: polyethylene glycoL POWDER 17 GM (MIRALAX) PACK PO SCH (20:25)
[2019-04-15 05:34] VITALS: BP 113/70
[2019-04-15] MEDS: CARVEDILOL 3.125 MG (COREG) TABLET PO SCH (06:51)
[2019-04-15] MEDS: ASPIRIN 81 MG CHEW (CHILDREN'S ASA) PO SCH (08:14)
[2019-04-15] MEDS: TAMSULOSIN 0.4 MG (FLOMAX) CAP PO SCH (08:14)
[2019-04-15] MEDS: CLOPIDOGREL 75 MG (PLAVIX) TABLET PO SCH (08:14)
[2019-04-15] MEDS: lisINopril 5 MG (PRINIVIL) TABLET PO SCH (08:14)
[2019-04-15] MEDS: BISACODYL 10 MG SUPP (DULCOLAX) PR SCH (08:15)
[2019-04-15] MEDS: SENNA W/DOCUSATE (SENOKOT S) TABLET PO SCH (08:15)
[2019-04-15] MEDS: LACTULOSE SYRUP 10GM/15ML (ENULOSE) 30ML UDC PO SCH (08:15)
[2019-04-15] MEDS: DOCUSATE SODIUM 100 MG (COLACE) CAP PO SCH (08:15)
[2019-04-15] MEDS: FLUTICASONE NASAL SPRAY (FLONASE) 16 GM BTL NS SCH (08:16)
--- NOTE | 2019-04-15 09:38 | Discharge Summary ---
Diagnosis/Chief Complaint Date of Admission Apr 04, 2019 at 14:35 Date of Discharge Discharge Date: Apr 15, 2019 Discharge Diagnosis Assessment: Anoxic brain injury Cognitive deficit improved since admit CAD Constipation severe resolved Urinary retention requiring payton cath now DC Fall to bathroom 5 days ago Plan: IRF protocol BM regimen Cardiology appreciated Dr Gentile appreciated DC Payton and urinating well Dispo Thursday home (1) Anoxic brain injury (2) CAD (coronary artery disease) (3) Malnutrition (4) Urinary retention (5) Constipation (6) Payton catheter in place (7) Hypertension Discharge Summary Discharge Physical Examination Allergies: Coded Allergies: No Known Drug Allergies (Unverified , 04/08/19) Vitals & I&Os Vital Signs Date Time Temp Pulse Resp B/P (MAP) Pulse Ox O2 Delivery O2 Flow Rate FiO2 04/15/19 09:00 Room Air 04/15/19 05:34 36.6 78 16 113/70 (84) 96 General Appearance: Alert, Oriented X3, Cooperative Respiratory: Clear to Auscultation Cardiovascular: Regular Rate Psych/Mental Status: Mental Status NL Hospital Course Was the Problem List Reviewed?: Yes Hospital course: patient had an uneventful hospital course for 12 days in IRF after suffering a cardiac arrest and subsequent anoxic brain injury managed at [facility]. Urinary retention occurred prompting Dr Gentile consultation and that was ultimately resolved with Flomax. Cardiology and Pulmonology both consulted and overall improved dramatically until he was able to DC home on HH with his . Patient benefitted from IRF and participated in all requirements. Labs (last 24 hrs) Laboratory Tests 04/05/19 05:25: White Blood Count 7.8, Red Blood Count 4.26L, Hemoglobin 12.2L, Hematocrit 37L, Mean Corpuscular Volume 86, Mean Corpuscular Hemoglobin 29, Mean Corpuscular Hemoglobin Concent 33, Red Cell Distribution Width 13.9, Platelet Count 645H, Mean Platelet Volume 11.1H, Neutrophils (%) (Auto) 69, Lymphocytes (%) (Auto) 15, Monocytes (%) (Auto) 12, Eosinophils (%) (Auto) 4, Basophils (%) (Auto) 0, Neutrophils # (Auto) 5.3, Lymphocytes # (Auto) 1.2, Monocytes # (Auto) 1.0, Eosinophils # (Auto) 0.3, Basophils # (Auto) 0.0, Sodium Level 134L, Potassium Level 4.1, Chloride Level 106, Carbon Dioxide Level 20L, Anion Gap 8, Blood Urea Nitrogen 25H, Creatinine 0.77, Estimat Glomerular Filtration Rate > 60, BUN/Creatinine Ratio 32, Glucose Level 94, Calcium Level 9.2, Corrected Calcium 9.8, Total Bilirubin 0.6, Aspartate Amino Transf (AST/SGOT) 38H, Alanine Aminotransferase (ALT/SGPT) 85H, Alkaline Phosphatase 160H, Total Protein 6.4, Albumin 3.3 04/11/19 06:00: White Blood Count 5.2, Red Blood Count 4.29L, Hemoglobin 12.1L, Hematocrit 36L, Mean Corpuscular Volume 86, Mean Corpuscular Hemoglobin 28, Mean Corpuscular Hemoglobin Concent 33, Red Cell Distribution Width 13.6, Platelet Count 464H, Mean Platelet Volume 9.2, Neutrophils (%) (Auto) 66, Lymphocytes (%) (Auto) 17, Monocytes (%) (Auto) 13H, Eosinophils (%) (Auto) 5, Basophils (%) (Auto) 0, Neutrophils # (Auto) 3.1, Lymphocytes # (Auto) 0.8L, Monocytes # (Auto) 0.6, Eosinophils # (Auto) 0.2, Basophils # (Auto) 0.0, Sodium Level 136, Potassium Level 4.4, Chloride Level 108H, Carbon Dioxide Level 17L, Anion Gap 11, Blood Urea Nitrogen 17, Creatinine 0.82, Estimat Glomerular Filtration Rate > 60, BUN/Creatinine Ratio 21, Glucose Level 101, Calcium Level 9.3, Corrected Calcium 9.8, Total Bilirubin 0.4, Aspartate Amino Transf (AST/SGOT) 23, Alanine Aminotransferase (ALT/SGPT) 40, Alkaline Phosphatase 151H, Total Protein 6.5, Albumin 3.4 Pending Labs Laboratory Tests 04/05/19 05:25: White Blood Count 7.8, Red Blood Count 4.26, Hemoglobin 12.2, Hematocrit 37, Mean Corpuscular Volume 86, Mean Corpuscular Hemoglobin 29, Mean Corpuscular Hemoglobin Concent 33, Red Cell Distribution Width 13.9, Platelet Count 645, Mean Platelet Volume 11.1, Neutrophils (%) (Auto) 69, Lymphocytes (%) (Auto) 15, Monocytes (%) (Auto) 12, Eosinophils (%) (Auto) 4, Basophils (%) (Auto) 0, Neutrophils # (Auto) 5.3, Lymphocytes # (Auto) 1.2, Monocytes # (Auto) 1.0, Eosinophils # (Auto) 0.3, Basophils # (Auto) 0.0, Sodium Level 134, Potassium Level 4.1, Chloride Level 106, Carbon Dioxide Level 20, Anion Gap 8, Blood Urea Nitrogen 25, Creatinine 0.77, Estimat Glomerular Filtration Rate > 60, BUN/Creatinine Ratio 32, Glucose Level 94, Calcium Level 9.2, Corrected Calcium 9.8, Total Bilirubin 0.6, Aspartate Amino Transf (AST/SGOT) 38, Alanine A minotransferase (ALT/SGPT) 85, Alkaline Phosphatase 160, Total Protein 6.4, Albumin 3.3 04/11/19 06:00: White Blood Count 5.2, Red Blood Count 4.29, Hemoglobin 12.1, Hematocrit 36, Mean Corpuscular Volume 86, Mean Corpuscular Hemoglobin 28, Mean Corpuscular Hemoglobin Concent 33, Red Cell Distribution Width 13.6, Platelet Count 464, Mean Platelet Volume 9.2, Neutrophils (%) (Auto) 66, Lymphocytes (%) (Auto) 17, Monocytes (%) (Auto) 13, Eosinophils (%) (Auto) 5, Basophils (%) (Auto) 0, N eutrophils # (Auto) 3.1, Lymphocytes # (Auto) 0.8, Monocytes # (Auto) 0.6, Eosinophils # (Auto) 0.2, Basophils # (Auto) 0.0, Sodium Level 136, Potassium Level 4.4, Chloride Level 108, Carbon Dioxide Level 17, Anion Gap 11, Blood Urea Nitrogen 17, Creatinine 0.82, Estimat Glomerular Filtration Rate > 60, BUN/Creatinine Ratio 21, Glucose Level 101, Calcium Level 9.3, Corrected Calcium 9.8, Total Bilirubin 0.4, Aspartate Amino Transf (AST/SGOT) 23, Alanine Aminotransferase (ALT/SGPT) 40, Alkaline Phosphatase 151, Total Protein 6.5, Albumin 3.4 Discharge Home Medications: Active Scripts Active Carvedilol 3.125 Mg Tablet 3.125 Mg PO BID WITH MEALS Fluticasone Propionate 16 Gm [place].susp 0 [place] NS DAILY Aspirin 81 Mg Tab.chew 81 Mg PO DAILY Lisinopril 5 Mg Tablet 5 Mg PO DAILY Lipitor (Atorvastatin Calcium) 40 Mg Tablet 40 Mg PO HS Clopidogrel (Clopidogrel Bisulfate) 75 Mg Tablet 75 Mg PO DAILY Flomax (Tamsulosin HCl) 0.4 Mg Cap 0.4 Mg PO HS Reported Tylenol Extra Strength (Acetaminophen) 500 Mg Tablet 1,000 Mg PO Q8H PRN Multivitamins (Multivitamin) 1 Each Tablet 1 Each PO DAILY Instructions to patient/family Please see electronic discharge instructions given to patient. Diagnosis/Problems Diagnosis/Problems (1) Anoxic brain injury (2) CAD (coronary artery disease) (3) Malnutrition (4) Urinary retention (5) Constipation (6) Payton catheter in place (7) Hypertension Clinical Quality Measures DVT/VTE Risk/Contraindication: Risk Factor Score Per Nursin RFS Level Per Nursing on Admit: 4+=Very High RENEE JARVIS DO Apr 15, 2019 09:38
--- NOTE | 2019-04-15 10:35 | Therapy Team Discharge Summary ---
Therapy Discharge Summary Discharge Recommendations Date of Discharge Occupational Therapy Decreased Activ Tolerance, Impaired Coordination, Impaired Funct Balance, Impaired I ADL's, Impaired Self-Care Skills Speech-Language Pathology Patient was admitted to the ARU s/p heart attack. Patient exhibited decreased cognitive function based on the SLUMS score obtained. Patient received skilled ST for improving cognitive with focus on safety awareness and memory. Patient achieved his goals. Patient was discharged to his home with his this date. Patient is discharged from ST as well. PT Detention Goals Archeologist Goals PT Detention Goals Time Frame: May 07, 2019 Roll Left to Right (QC): 6 Sit to Lying (QC): 6 Lying-Sitting on Side/Bed(QC): 6 Sit to Stand (QC): 5 Chair/Qlq-jh-Enedg Xfer(QC): 5 Car Transfer (QC): 5 Does the Patient Walk: Yes Walk 10 feet (QC): 6 Walk 10ft-Uneven Surface(QC): 6 Walk 50ft with 2 Turns (QC): 6 Walk 150 ft (QC): 6 1 Step (curb) (QC): 6 4 Steps (QC): 6 12 Steps (QC): 6 Picking up an Object (QC): 6 OT Detention Goals Detention Goals Time Frame: Apr 25, 2019 Eating (QC): 6 Oral Hygiene (QC): 5 Shower/Bathe Self (QC): 4 Upper Body Dressing (QC): 4 Lower Body Dressing (QC): 4 On/Off Footwear (QC): 4 Toileting Hygiene (QC): 6 Toilet/Commode Transfer (QC): 5 Additional Goals: 1-Demonstrate ADL Tasks, 2-Verbalize Understanding, 3- ImproveStrength/Hayder 1=Demonstrate adherence to instructed precautions during ADL tasks. 2=Patient will verbalize/demonstrate understanding of assistive devices/modifications for ADL. 3=Patient will improve strength/tolerance for activity to enable patient to perform ADL's. Speech Detention Goals Archeologist Goals Patient will improve cognitive-communication and speech exercises necessary for safety and daily living tasks with minimal assist and effective communication. NISA CAIN Apr 15, 2019 10:35
--- NOTE | 2019-04-15 10:43 | NUR ---
CM/SS DISCHARGE HHC: Finalized with [facility] ([facility]). DME: Patient's FWW was delivered from [facility]. Spouse here to transport home, both patient and spouse very enthused for this discharge and patient's return home.
--- NOTE | 2019-04-15 11:14 | Therapy Team Discharge Summary ---
Therapy Discharge Summary Discharge Recommendations Date of Discharge Physical Therapy Patient came to rehab following an AK. Upon evaluation patient performed bed mobility with SBA, supine <-> sit min assist, sit <-> stand max assist, transfers max assist, car transfer max assist, ambulated 50' with a rolling walk er with max assist (including 50' with at least 2 turns of 90 degrees and 10' over an uneven surface), and went up and down 1 step using a rolling walker with max assist. Patient has been performing bed mobility and transfer training, balance and endurance training, functional strengthening, stair training, gait training, and education. Patient has made good progress but has not met any of his chcf goals except for bed mobility. Patient performed very well on 04/14/19 but his typical performance is reflected on the QC's checked on 04/12/19. Patient now performs bed mobility with independence, supine <-> sit with independence, sit <-> stand with SBA, transfers with SBA, car transfer SBA, ambulates 200' with a rolling walker with CGA (including 50' with at least 2 turns of 90 degrees and 10' over an uneven surface), can go up and down 12 steps using 2 handrails with CGA, and can cotton picker an object from the floor with CGA. Patient was discharged from this facility today and will be discharged from PT at this time. Occupational Therapy Decreased Activ Tolerance, Impaired Coordination, Impaired Funct Balance, Impaired I ADL's, Impaired Self-Care Skills PT Senior Living Goals Monotype Operator Goals PT Senior Living Goals Time Frame: May 07, 2019 Roll Left to Right (QC): 6 Sit to Lying (QC): 6 Lying-Sitting on Side/Bed(QC): 6 Sit to Stand (QC): 5 Chair/Jke-hf-Pgscd Xfer(QC): 5 Car Transfer (QC): 5 Does the Patient Walk: Yes Walk 10 feet (QC): 6 Walk 10ft-Uneven Surface(QC): 6 Walk 50ft with 2 Turns (QC): 6 Walk 150 ft (QC): 6 1 Step (curb) (QC): 6 4 Steps (QC): 6 12 Steps (QC): 6 Picking up an Object (QC): 6 OT Senior Living Goals Monotype Operator Goals Time Frame: Apr 25, 2019 Eating (QC): 6 Oral Hygiene (QC): 5 Shower/Bathe Self (QC): 4 Upper Body Dressing (QC): 4 Lower Body Dressing (QC): 4 On/Off Footwear (QC): 4 Toileting Hygiene (QC): 6 Toilet/Commode Transfer (QC): 5 Additional Goals: 1-Demonstrate ADL Tasks, 2-Verbalize Understanding, 3- ImproveStrength/Hayder 1=Demonstrate adherence to instructed precautions during ADL tasks. 2=Patient will verbalize/demonstrate understanding of assistive devices/modifications for ADL. 3=Patient will improve strength/tolerance for activity to enable patient to perform ADL's. Speech Senior Living Goals Monotype Operator Goals Patient will improve cognitive-communication and speech exercises necessary for safety and daily living tasks with minimal assist and effective communication. STEW CRAIG PT Apr 15, 2019 11:14
[2019-04-15 13:15] VITALS: BP 115/78
--- NOTE | 2019-04-18 13:20 | Therapy Team Discharge Summary ---
Therapy Discharge Summary Discharge Recommendations Date of Discharge Apr 15, 2019 at 10:10 Occupational Therapy Pt admits with DE s/p hypoxic brain injury. Pt was mod A UB/ max A LB/ min A transfers/ min A oral hygiene upon admission. Pt and OT work towards higher functional IND of ADLs through stay by addressing impulsivity/ safety, strength and endurance, LUE movement and coordination, and ADL retraining. Pt limited by motivation and impulsivity. Pt d/c's by reaching some LTGs: d/cs with IND oral hygiene, SUP showering, IND UB dressing, SBA LB dressing and IND footwear. Pt and educated on safety and home environment success. Pt d/c OT services at this time. Decreased Activ Tolerance, Impaired Coordination, Impaired Funct Balance, Impaired I ADL's, Impaired Self-Care Skills PT Mechanical Expert Goals Shelter Goals PT Shelter Goals Time Frame: May 07, 2019 Roll Left to Right (QC): 6 Sit to Lying (QC): 6 Lying-Sitting on Side/Bed(QC): 6 Sit to Stand (QC): 5 Chair/Gyu-dz-[place] Xfer(QC): 5 Car Transfer (QC): 5 Does the Patient Walk: Yes Walk 10 feet (QC): 6 Walk 10ft-Uneven Surface(QC): 6 Walk 50ft with 2 Turns (QC): 6 Walk 150 ft (QC): 6 1 Step (curb) (QC): 6 4 Steps (QC): 6 12 Steps (QC): 6 Picking up an Object (QC): 6 OT Mechanical Expert Goals Shelter Goals Time Frame: Apr 25, 2019 Eating (QC): 6 Oral Hygiene (QC): 5 Shower/Bathe Self (QC): 4 Upper Body Dressing (QC): 4 Lower Body Dressing (QC): 4 On/Off Footwear (QC): 4 Toileting Hygiene (QC): 6 Toilet/Commode Transfer (QC): 5 Additional Goals: 1-Demonstrate ADL Tasks, 2-Verbalize Understanding, 3- ImproveStrength/Hayder 1=Demonstrate adherence to instructed precautions during ADL tasks. 2=Patient will verbalize/demonstrate understanding of assistive devices/modifications for ADL. 3=Patient will improve strength/tolerance for activity to enable patient to perform ADL's. Speech Shelter Goals Shelter Goals Patient will improve cognitive-communication and speech exercises necessary for safety and daily living tasks with minimal assist and effective communication. WANDA CROSS OTR Apr 18, 2019 13:20
== END 2019-04-15 10:10 | disposition home health service (06) | DRG 91 ==
PROVIDERS: ADMIT Internal Medicine; ATTEND Internal Medicine
DX: G93.1 Anoxic brain damage, not elsewhere classified (principal); I21.3 ST elevation (STEMI) myocardial infarction of unspecified site; K59.00 Constipation, unspecified; N40.1 Benign prostatic hyperplasia with lower urinary tract symptoms; R33.9 Retention of urine, unspecified; I42.9 Cardiomyopathy, unspecified; I25.10 Atherosclerotic heart disease of native coronary artery without angina pectoris; E78.5 Hyperlipidemia, unspecified; I10 Essential (primary) hypertension; K21.9 Gastro-esophageal reflux disease without esophagitis; F41.9 Anxiety disorder, unspecified; F32.9 Major depressive disorder, single episode, unspecified; Z87.891 Personal history of nicotine dependence; Z82.49 Family history of ischemic heart disease and other diseases of the circulatory system; Z95.5 Presence of coronary angioplasty implant and graft
CPT/HCPCS: 36415; 80053; 85025; 85027; 93306